=== PATIENT | female | born 1935 | race Caucasian/White ===

== ENCOUNTER 2018-01-09 07:31 | Outpatient (CLI) | payer MEDICARE, OTHER ==
--- NOTE | 2018-01-09 10:32 | PRG ---
DATE OF SERVICE: 01/09/2018 HISTORY: Ms. Berenice Laboy is a very pleasant 82-year-old who presents [facility] for ev aluation of an ulceration of the right medial buttock. The patient was previously seen in the [facility]ound Center for 2 pressure ulcerations on 06/06/2016 and 06/20/2016. At the time of the patient's visit o n 06/20/2016, the ulcerations had almost healed completely with dressing changes of Multidex powder. The patient states that the ulceration over the right medial buttock has recurred. She states that she has been performing dressing changes of Multidex powder for this wound on her own. PAST MEDICAL HISTORY: Psoriasis. PAST SURGICAL HISTORY: 1. Modified radical mastectomy. 2. Tonsillectomy and adenoidectomy. 3. Nasal surgery. MEDICATIONS: 1. Premarin. 2. Nexium. 3. Folate. 4. Humira. 5. Metoprolol. 6. Losartan/HCTZ. 7. Eliquis. 8. Furosemide. 9. Simvastatin. 10. Folic acid. PHYSICAL EXAMINATION: An ulceration of the right medial buttock is present. Granulation tissue is p resent within the wound margins. Nonviable tissue present within the wound margins was debrided with an excisional full-thickness debridement with the use of a curette. No purulent drainage is associa jony with the wound. No erythema of the skin surrounding the wound is present. No maceration of the skin of the periwound is noted. Post-debridement measurements are approximately 0.5 x 0.9 cm. ASSESSMENT AND PLAN: 1. Pressure ulceration of right medial buttock as described above. Dressing changes of Medihoney an d bordered gauze will be initiated today. These dressing changes are to be performed on a daily basi s after cleansing and irrigation. No antibiotics will be prescribed today based upon the appearance of the wound. I will see Ms. Laboy again in two weeks. 2. Psoriasis.
== END 2018-01-09 07:32 | disposition home or self-care (01) ==
LOC: WCC 07:31
PROVIDERS: ATTEND Family Medicine
DX: L89.319 Pressure ulcer of right buttock, unspecified stage (principal); L40.9 Psoriasis, unspecified; Z90.10 Acquired absence of unspecified breast and nipple
CPT/HCPCS: 11042; 97139; G0463; 99203

== ENCOUNTER 2018-01-29 09:38 | Outpatient (CLI) | payer MEDICARE, OTHER ==
--- NOTE | 2018-01-29 10:43 | PRG ---
DATE OF SERVICE: 01/29/2018 HISTORY: Ms. Berenice Laboy is a very pleasant 82-year-old who presents to the [facility] for ev aluation of an ulceration of the right medial buttock. The patient was previously seen in the [facility]ound Center for 2 pressure ulcerations on 06/06/2016 and 06/20/2016. At the time of the patient's visit o n 06/20/2016, the ulcerations had almost healed completely with dressing changes of Multidex powder. At the time of the patient's visit on 01/09/2018, the patient stated that the ulceration over the [facility] medial buttock had recurred. She stated that she had been performing dressing changes of Multide x powder for this wound on her own. After the patient's visit on 01/09/2018, dressing changes of Med ihoney and bordered gauze were initiated. The patient states she has been performing these dressing changes on a daily basis after cleansing and irrigation on her own. PHYSICAL EXAMINATION: VITAL SIGNS: Temperature 97.5, pulse 89, respirations 21, blood pressure 135/67. BACK: Ulceration of the right medial buttock has healed completely. ASSESSMENT AND PLAN: 1. Pressure ulceration of right medial buttock. As stated above, this wound has healed completely. Dressing changes will be discontinued and Ms. Laboy will be discharged from clinic today with campbell melendez on a p.r.n. basis. 2. Psoriasis.
== END 2018-01-29 09:39 | disposition home or self-care (01) ==
LOC: WCC 09:38
PROVIDERS: ATTEND Family Medicine
DX: L89.319 Pressure ulcer of right buttock, unspecified stage (principal); L40.9 Psoriasis, unspecified
CPT/HCPCS: 97139; G0463; 99213

== ENCOUNTER 2018-03-24 19:58 | Inpatient (IN) | payer MEDICARE, OTHER ==
--- NOTE | 2018-03-24 23:29 | PDOC.FPRHP ---
- History of Present Illness Chief Complaint: Amaya Xfer, Afib History of Present Illness: Pt Orientedx0 at time of exam, history obtained from ER and PCP physicians; previous medical records. Ms. Laboy was seen in her halfway today for weakness and diarrhea that she reported to have been present since . An EKG was obtained at that time which revealed Afib with intermittent RVR. She was sent to [facility] for further evaluation, where Afib was not seen but rather concern for heart block, Xray obtained suspicious for PNA and pleural effusion, UA suspicious for UTI. She was then transferred to [facility] ED for treatment of sepsis and evaluation of possible heart block. She reports pain during her examination but is unable to say where it is coming from, no other intelligible responses to questioning. ED Course: CBC, CMP, CXR, CT, Trop/ckmb, ddimer - Allergies/Adverse Reactions Allergies Allergy/AdvReac Type Severity Reaction Status Date / Time No Known Drug Allergies Allergy Verified 01/08/17 03:25 - Home Medications Medication Instructions Recorded Confirmed Type Albuterol Sulfate [Proair HFA] 2 puff INH Q4HR 01/08/17 01/08/17 History Cholecalciferol (Vitamin D3) 5,000 units PO Q7DAYS 01/08/17 01/08/17 History [Vitamin D] Clotrimazole 1% Cream [Lotrimin 1% 1 applic TOP QPM 01/08/17 01/08/17 History Cream] Estrogens, Conjugated [Premarin 1 applic VAG Q7DAYS 01/08/17 01/08/17 History Cream] Folic Acid [Folvite] 1 mg PO QPM 01/08/17 01/08/17 History Losartan/Hydrochlorothiazide 1 mg PO QAM 01/08/17 01/08/17 History [Losartan-Hctz 100-25 mg Tab] Methotrexate Sodium 2.5 mg PO Q7D 01/08/17 01/08/17 History Simvastatin [Zocor] 20 mg PO QPM 01/08/17 01/08/17 History Albuterol Sulfate 1.25 mg NEB L7AM-RY PRN #60 neb 01/18/17 Rx Apixaban [Eliquis] 5 mg PO BID #60 tab 01/18/17 Rx Bisacodyl [Dulcolax] 10 mg MN DAILYPRN PRN #0 supp 01/18/17 Rx Docusate [Colace] 100 mg PO BID cap 01/18/17 Rx Flecainide [Tambocor] 50 mg PO Q12HR #60 tab 01/18/17 Rx Ipratropium/Albuterol Sulfate 3 ml NEB P4BA-NS #60 neb 01/18/17 Rx [DuoNeb] Metoprolol Succinate [Toprol XL] 100 mg PO DAILY #30 tab 01/18/17 Rx Pantoprazole [Protonix] 40 mg PO Q24HR tab 01/18/17 Rx Polyethylene Glycol 3350 [Miralax] 17 gm PO DAILY pk 01/18/17 Rx guaiFENesin ER [Mucinex] 600 mg PO Q12HR tab 01/18/17 Rx - History PMHx:Afib, GERD, HLD, HTN, Psoriasis PSHx: L mastectomy FHx: none Social: lives alone in halfway - Review of Systems ROS unobtainable: due to mental status (unintelligible responses to most questioning, Oriented x0) - Vital signs BP: [131/98] HR: [107] RR: [21] Tmax: [97.6] Pox: [99]% on [2L] Wt: [63kg] - Physical Exam Constitutional: well developed, other (moaning in pain throughout exam) HEENT: normocephalic and atraumatic, conjunctiva clear, MMM Neck: supple, trachea midline Chest: no lesions Heart: normal S1/S2, no murmurs/rubs/gallops, pulses present, no edema, other ( tachycardic) Lungs: CTAB, other (difficulty to auscultate 2/2 moaning) Abdomen: soft, no masses/distention Musculoskeletal: normal structure, ROM grossly normal Neurological: no focal deficit Skin: no rash/lesions, good turgor Heme/Lymphatic: no unusual bruising or bleeding, no petechia FMR H&P: A/P - Plan 1. Sepsis - UTI or PNA as possible source - Vanc, azithromycin, and ceftriaxone to cover for CAP and urosepsis - UCx with sensitivities - sputum culture - IV NS 100ml/hr 2. Tachycardia - possibly 2/2 sepsis, afib with RVR, or volume depletion - EKG concerning for heart block - consider cardiology consult in AM 3. UTI - IV Abx providing coverage - IV fluid resuscitation - monitor urine output 4. PNA with loculated pleural effusion - chronic vs sepsis source - appreciate pulm recommendations regarding pleural effusion 5. Afib - chronic, continue home meds - appreciate cardiology recs 6. HTN - hold home medications 7. Psoriasis - continue home medications 8. GERD - continue home medications 9. HLD - continue home medications Disposition/LOS: treatment of sepsis with empiric abx, await cultures and sensitivities to narrow treatments, monitor on telemetry FMR H&P: Upper Level - Pertinent history 83F seen today as a transfer for a fib. Issues started today when she was seen by PCP. PCP note indicated patient was capable of making her own decision. She was having diarrhea, for which culture was drawn, She was noted to be tachycardic and EKG was done, finding her to be in afib. Afib was noted to be a chronic issue. She was then sent to [facility] for further evaluation. There, she was also noted to have a possible loculated effusion, can not rule out pneumonia, on CTA, and possible UTI based on UA. She was then transfered to [facility] for further care. She was noted on exam to be incoherent, pulling at surrounding objects and not responding appropriately. - Pertinent findings Gen: Awake, disoriented, unable to follow command or verbally respond appropriately. Pulling on clothes and beddings. CV: Tachycardic, no obvious m/g/r Resp: CTA Derm: No obvious rash or lesion Abd: Normoactive, soft Ext: No pitting edema. - Plan Date/Time: 03/24/18 8821 I, [Kelvin Ly], have evaluated this patient and agree with findings/plan as outlined by manufacturing engineering intern resident. Pertinent changes/additions are listed here. 1. Sepsis - Based on alter mentation, in addition to tachycardia, tachypnea - Plan, treat with broad spectrum abx. Culture pending - Consider repeat imaging on effusion seen on ct. Consider consultation with pulm. 2. Afib, rate controlled - When evaluating in ER, rate under 110, rate controlled, Afib on EKG - Etiology can include possible sepsis, which is being treated or dehydration for which patient is being resuscitated. If patient goes into RVR, consider card consult and starting on amio or dilt. 3. UTI - UA suggest infection. - Culture pending - Broad abx coverage 4. PNA with loculated pleural effusion - Will treat with ceftriaxone, azithromycin. Vancomycin in addition due to loculation with increase concern for staph. Consider pulm consult in morning. May require drainage. Consider repeat imaging in morning - At this time, patient has good O2 saturation on RA 5. HTN - Hold home medications in light of sepsis. BP is appropriate 7. Psoriasis - Continue home medication 8. GERD - Continue home medications 9. HLD - Continue home medications 10. Elevated troponin - Trending down, likely demand from sepsis.
[2018-03-25 00:58] LABS: Troponin I 0.029 ng/mL (< 0.028)
[2018-03-25] MEDS ORDERED: Ondansetron HCl/PF 4 MG/2 ML Vial IVP PRN (01:42)
[2018-03-25] MEDS ORDERED: Acetaminophen 325 MG TAB PO PRN (01:42)
[2018-03-25] MEDS ORDERED: Ondansetron ODT 4 MG TAB SL PRN (01:42)
[2018-03-25] MEDS ORDERED: Piperacillin/Tazobactam 3.375 GM in Sodium Chloride 0.9% 100 ML IVPB SCH (02:00)
[2018-03-25] MEDS: Sodium Chloride 0.9% 1,000 ML IV SCH ×3 (02:19→23:17)
[2018-03-25] MEDS: cefTRIAXone\\ROCEPHIN 2 GM in Sodium Chloride 0.9% 100 ML IVPB SCH (02:42)
[2018-03-25 03:06] LABS: #Lymphocytes 1.2 thou/uL (1.20-3.40); #Monocytes 0.5 thou/uL (0.11-0.59); #Neutrophils 6.6 thou/uL (1.40-6.50); %Basophils 0.3 % (0.0-1.0); %Eosinophils 0.6 % (0.0-10.0); %Lymphocytes 14.2 % (21.0-51.0); %Monocytes 5.8 % (0.0-10.0); %Neutrophils 79.1 % (42.0-75.0); Hemoglobin 13.4 g/dL (12.0-16.0); Mean Corpuscular HGB CONC 30.5 g/dL (32.0-36.0); Mean Corpuscular Hemoglobin 33.6 pg (27.0-31.0); Mean Platelet Volume 9.5 fL (7.4-10.4); Platelet Count 95 thou/uL (130-400); RBC Distribution Width 14.8 % (11.5-14.5); White Blood Cell (WBC) Count 8.3 thou/uL (4.8-10.8)
[2018-03-25 03:13] LABS: Troponin I 0.018 ng/mL (< 0.028)
[2018-03-25 03:23] LABS: ALT (SGPT) 70 U/L (8-55); AST (SGOT) 51 U/L (5-34); Albumin 3.6 g/dL (3.4-4.8); Alkaline Phosphatase 68 U/L (40-150); Anion Gap 16 mmol/L (10-20); BUN (Urea Nitrogen) 38 mg/dL (9.8-20.1); Bilirubin, Total 0.6 mg/dL (0.2-1.2); Calc. Creatinine Clearance 53 mL/min (70-130); Calcium 8.4 mg/dL (7.8-10.44); Carbon Dioxide 28 mmol/L (23-31); Chloride 103 mmol/L (98-107); Estimated GFR-MDRD 64; Glucose 102 mg/dL (83-110); Potassium 3.9 mmol/L (3.5-5.1); Protein, Total 5.6 g/dL (6.0-8.3); Sodium 143 mmol/L (136-145)
[2018-03-25] MEDS: Azithromycin 500 MG in Sodium Chloride 0.9% 250 ML 250 ML IVPB SCH (04:32)
--- NOTE | 2018-03-25 06:37 | PDOC.FM ---
- Subjective Subjective: Unable to obtain hx from pt due to AMS. She denies pain. A&Ox0. Reports being in jainism, year 1935. Per nursing pt is not aggitated or trying to get up out of bed. She waxes and wanes on if she will respond to questions and open her eyes. She follows some simple commands. - Objective MAR Reviewed: Yes Vital Signs & Weight: Vital Signs (12 hours) Temp Pulse Resp BP Pulse Ox 03/25/18 04:00 97.5 F L 133 H 16 98/70 95 03/25/18 01:14 98.2 F 138 H 20 92/69 96 Weight Weight 65.771 kg Result Diagrams: 03/25/18 02:37 03/25/18 02:37 <Unique Schwartz - Last Filed: 03/25/18 10:08> - Objective Vital Signs & Weight: Vital Signs (12 hours) Temp Pulse Resp BP Pulse Ox 03/25/18 15:40 97.7 F 131 H 20 135/104 H 96 03/25/18 11:57 97.4 F L 135 H 20 112/76 96 03/25/18 08:27 97.6 F 133 H 14 106/68 96 03/25/18 08:24 96 Weight Weight 65.771 kg Result Diagrams: 03/25/18 02:37 03/25/18 02:37 <Ivonne García - Last Filed: 03/25/18 17:11> Dx/Plan (1) Atrial fibrillation with RVR Code(s): I48.91 - UNSPECIFIED ATRIAL FIBRILLATION Status: Acute (2) GERD (gastroesophageal reflux disease) Code(s): K21.9 - GASTRO-ESOPHAGEAL REFLUX DISEASE WITHOUT ESOPHAGITIS Status: Acute (3) Hyperglycemia Code(s): R73.9 - HYPERGLYCEMIA, UNSPECIFIED Status: Acute (4) Peripheral edema Code(s): R60.9 - EDEMA, UNSPECIFIED Status: Acute (5) Urinary tract infection Status: Acute (6) Community acquired pneumonia Code(s): J18.9 - PNEUMONIA, UNSPECIFIED ORGANISM Status: Chronic (7) HTN (hypertension) Code(s): I10 - ESSENTIAL (PRIMARY) HYPERTENSION Status: Chronic (8) Hyperlipidemia Code(s): E78.5 - HYPERLIPIDEMIA, UNSPECIFIED Status: Chronic (9) Psoriasis Code(s): L40.9 - PSORIASIS, UNSPECIFIED Status: Chronic - Plan Plan: Sepsis - Afebrile, tachycardic, tachypnea, AMS - UTI or PNA as possible source - Continue Vanc, azithromycin, and ceftriaxone to cover for CAP and urosepsis - UCx with sensitivities pending - Sputum culture - NS @ 100ml/hr - Consider Pulm consult for effusion seen on CT - Consider repeating imaging Encephalopathy of unknown cause - 2/2 sepsis vs brain bleed vs electrolyte cause - A&Ox0, not her baseline - Obtain CT brain to r/o bleed, pt anticoagulated with Eliquis Arrhythmia - Ddx includes: heart block, Afib with RVR, aflutter, volume depletion - Cardiology consulted - Appears to have been present for at least 3 months, appears to have worsened since August 2017. Chronic Afib - Continue Eliquis, flecanide - Holding metoprolol for hypotension - Will consult Cardiology, follows with [facility] out[facility] UTI - UA suggests infection - Culture pending - IV Abx providing coverage - IV fluid resuscitation - Monitor urine output PNA with loculated complex pleural effusion in right hemithorax - 96% on 2L NC - Continue ceftriaxone, azithromycin. Vancomycin in addition due to loculation with increase concern for staph. - Pulm consult, May require drainage. - Consider repeat imaging HTN - Hold home losartan-HCTZ, metoprolol due to sepsis, maintaining BP wnl Psoriasis - Continue home methotrexate GERD - Continue home Protonix HLD - Continue home Simvastatin Constipation - Continue colace Elevated Troponin, down trending - Likely demand 2/2 sepsis - 0.029-> 0.018 Code Status: FULL DVT ppx: Eliquis <Unique Schwartz - Last Filed: 03/25/18 10:08> Attending Addendum - Attending Addendum Date/Time: 03/25/18 1108 I personally evaluated the patient and discussed the management with Dr. Schwartz. I agree with the History, Examination, Assessment and Plan documented above with any addition or exceptions noted below. The patient's heart rhythm changes from a.fib with rvr to atrial flutter. Rate is also fluctuating from 100-130's. Her bp is 90's systolic. Will start amiodarone as she isn't able to tolerate beta ricky or calcium channel ricky at this time. Pulmonology is being consulted for loculated pleural effusion. Getting CT head for her altered mental status which is significantly changed from when I saw her in the office yesterday. Continue antibiotics for UTI. Cultures pending. <Ivonne García - Last Filed: 03/25/18 17:11>
[2018-03-25] MEDS ORDERED: Albuterol Sulfate 1.25 MG/3 ML NEB NEB PRN (06:41)
[2018-03-25] MEDS ORDERED: Bisacodyl 10 MG SUPP PR PRN (08:51)
[2018-03-25] MEDS ORDERED: Flecainide 50 MG TAB PO SCH (09:00)
[2018-03-25] MEDS ORDERED: Methotrexate Sodium 2.5 MG TAB PO SCH (09:00)
[2018-03-25] MEDS ORDERED: Non-Formulary Item 1 EACH (Cholecalciferol (Vitamin D3) [Vitamin D] 5,000 UNITS) PO SCH (09:00)
--- NOTE | 2018-03-25 11:54 | CT ---
CT BRAIN WITHOUT CONTRAST: History: Change in mental status, altered mental status, fall. FINDINGS: There are changes of chronic small vessel ischemic disease in the periventricular white matter. The v entricular sizes are appropriate and the basal cisterns patent. No evidence of acute infarct, hemorrh age, midline shift, or abnormal extraaxial fluid collections are seen. The bony calvarium is intact. There is mucosal disease in the paranasal sinuses. IMPRESSION: No CT evidence of acute intracranial process. POS: [facility]
[2018-03-25] MEDS: PROVENTIL INHALER 6.7 G (200 INHALATIONS) INH SCH ×4 (12:10→22:05)
[2018-03-25] MEDS ORDERED: Amiodarone In Dextrose 200 ML IVPB SCH (12:30)
[2018-03-25] MEDS ORDERED: Amiodarone HCl 150 MG in Dextrose 5% in Water 100 ML IVPB SCH (12:30)
[2018-03-25] MEDS ORDERED: Amiodarone HCl 150 MG, Admixture Fee 1 EACH in Dextrose 5% in Water 100 ML IVPB SCH (12:45)
[2018-03-25] MEDS: guaiFENesin ER 600 MG TAB PO SCH ×2 (13:41→20:26)
[2018-03-25] MEDS: Docusate 100 MG CAP PO SCH ×2 (13:41→20:25)
[2018-03-25] MEDS: Benzonatate 100 MG CAP PO SCH ×2 (13:41→20:24)
[2018-03-25] MEDS: Apixaban 5 MG TAB PO SCH ×2 (13:41→20:24)
[2018-03-25] MEDS: Furosemide 20 MG TAB PO SCH (13:41)
[2018-03-25] MEDS: Polyethylene Glycol 3350 17 GM Packet PO SCH (13:42)
--- NOTE | 2018-03-25 13:58 | CON ---
DATE OF CONSULTATION: 03/25/2018 HISTORY OF PRESENT ILLNESS: Berenice Laboy is an 83-year-old female. She was confused this morning w hen I saw her. She thought she was in episcopalian. She could not really tell me historically anything th at had been going on. Apparently, she resides in [place]. She was seen for weakness and karla larson, was found to have atrial fib, was sent to the emergency room in [place]. She, subsequently, w as sent here where a CT angiogram was done showing a loculated right effusion. I was consulted for t . PAST MEDICAL HISTORY: Remarkable for reflux disease, hypertension, psoriasis, and a left mastectomy. SOCIAL HISTORY: She is a nonsmoker and nondrinker. She lives [place]. The [place] is unclear. MEDICATIONS: Prior to admission, she was on vitamin D, folate, losartan, hydrochlorothiazide, simvas tatin, methotrexate, apixaban, Tambocor, ipratropium, albuterol nebulizer, metoprolol, Protonix. FAMILY HISTORY: Negative for lung disease reportedly at an early age. REVIEW OF SYSTEMS: Not obtainable. PHYSICAL EXAMINATION: GENERAL: She is afebrile, heart rate is 130, respiratory rate is 20, oximetry is 96, blood pressure 112/76. She is on 2-liter cannula. She is oriented to episcopalian. NECK: Supple, no lymphadenopathy. LUNGS: Remarkable for absent breath sounds posteriorly on the right. Left lung is clear. HEART: Irregularly irregular with a rapid rate. There is a grade 1-2/6 systolic murmur. ABDOMEN: Soft. She has no guarding and no masses. EXTREMITIES: Without clubbing, cyanosis, or edema. LABORATORY DATA: White count 8.3, hemoglobin 13.4, platelets 95,000. Electrolytes are normal except for a BUN of 38, AST 51, ALT 70. Bilirubin was normal. Alkaline phos phatase was normal. IMPRESSION: Probable [id number] loculated right effusion. I doubt her pleural space is infected. Since this is an incidental finding and we do not have any recent films in the last 4-6 weeks, it is difficult to know how old this is. I did find a film from November that showed haziness in the right mid dle and right lower lobe. One could make an argument that, since this is several months old and since she has advanced age with confusion, no aggressive care should be undertaken. I will plan to discuss with Cardiothoracic Surg blayne.
--- NOTE | 2018-03-25 14:57 | CON ---
DATE OF CONSULTATION: 03/25/2018 HISTORY OF PRESENT ILLNESS: The patient is a pleasant 83-year-old woman who has a history of atrial fibrillation and presented with increasing weakness and dyspnea. The patient was seen initially 2 years ago with atrial fibrillation. She underwent transesophageal echocardiogram and underwent electrical cardioversion. The patient had been maintained on flecainide. The patient went back into atrial fibrillation and has been maintained on chronic anticoagulation therapy. The patient was admitted with weakness and dyspnea. PAST MEDICAL HISTORY: 1. Atrial fibrillation. 2. Hypertension. 3. GE reflux. 4. Psoriasis. PAST SURGICAL HISTORY: Mastectomy. SOCIAL HISTORY: Nonsmoker. FAMILY HISTORY: No strong family history of coronary artery disease. MEDICATIONS ON ADMISSION: Eliquis 5 b.i.d., Zocor 20 daily, metoprolol 100 b.i.d., methotrexate 2.5 daily, losartan/hydrochlorothiazide 100/25 daily. ALLERGIES: No known drug allergies. REVIEW OF SYSTEMS: The patient denies any fevers or chills. PHYSICAL EXAMINATION: GENERAL: Elderly woman in no acute distress. VITAL SIGNS: Blood pressure was 112/76, heart rate 130. NECK: No jugular venous distention. LUNGS: Coarse breath sounds bilateral. HEART: Irregular rate and rhythm, normal S1, S2. ABDOMEN: Nondistended. EXTREMITIES: Showed trace edema. Vascular radial pulses 2+. LABORATORY DATA AND IMAGING: White blood cell count 8.3, hemoglobin 13.4, hematocrit 44.1, platelets are 95. Sodium is 143, potassium 3.9, chloride 103, bicarbonate 28, BUN 38, creatinine is 0.85. Troponin was 0.018. Her EKG revealed atrial fibrillation with a right bundle branch block and left anterior fascicular block. IMPRESSION: 1. Atrial fibrillation with rapid ventricular response. 2. Hypertension. 3. Pleural effusion. 4. Possible pneumonia. This patient presents with rapid atrial fibrillation. From a cardiac standpoint , she has been placed on amiodarone. The patient needs to continue on her anticoagulation. If the patient remains in rapid atrial fibrillation, we will plan on electrical cardioversion. We will follow this patient with you through her hospitalization. [facility]
--- NOTE | 2018-03-25 15:40 | EKG ---
Test Reason : Blood Pressure : / mmHG Vent. Rate : 138 BPM Atrial Rate : 138 BPM P-R Int : 092 ms QRS Dur : 108 ms QT Int : 328 ms P-R-T Axes : 000 -64 113 degrees QTc Int : 496 ms Sinus tachycardia with short NH with occasional Premature ventricular complexes Incomplete right bundle branch block Left anterior fascicular block Abnormal ECG When compared with ECG of 24-MAR-2018 20:26, (Unconfirmed) Sinus rhythm has replaced Atrial fibrillation Confirmed by MANDI TELLEZ, SValencia ([id number]) on 03/25/2018 3:40:50 PM Referred By: SELAM *r Confirmed By:DR. Nataly RAYMOND MD
[2018-03-25] MEDS ORDERED: Vancomycin HCl 1 GM in Premix Bag 1 BAG IVPB SCH (17:00)
[2018-03-25] MEDS: Amiodarone HCl 450 MG, Admixture Fee 1 EACH in Dextrose 5% in Water 250 ML IVPB SCH (20:42)
[2018-03-25] MEDS ORDERED: Folic Acid 1 MG TAB PO SCH (21:00)
[2018-03-25] MEDS ORDERED: Clotrimazole 1 % Cream 30 GM TUBE TOP SCH (21:00)
[2018-03-25] MEDS ORDERED: Atorvastatin Calcium 10 MG TAB PO SCH (21:00)
[2018-03-26] MEDS: cefTRIAXone\\ROCEPHIN 2 GM in Sodium Chloride 0.9% 100 ML IVPB SCH (03:16)
[2018-03-26] MEDS: Azithromycin 500 MG in Sodium Chloride 0.9% 250 ML 250 ML IVPB SCH (04:11)
[2018-03-26] MEDS: PROVENTIL INHALER 6.7 G (200 INHALATIONS) INH SCH ×6 (04:47→22:08)
--- NOTE | 2018-03-26 05:17 | PDOC.FM ---
- Subjective Subjective: Overnight on tele HR in 120's on Amio gtt. Pt not in room this AM, sent down to [facility] for cardioversion. - Objective MAR Reviewed: Yes Vital Signs & Weight: Vital Signs (12 hours) Temp Pulse Resp BP Pulse Ox 03/26/18 04:00 98.5 F 126 H 20 111/84 96 03/26/18 02:23 96 03/26/18 02:20 127 H 20 03/26/18 00:00 97.7 F 126 H 26 H 100/76 95 03/25/18 22:06 125 H 20 03/25/18 20:00 97.7 F 126 H 20 98 03/25/18 19:38 98 03/25/18 18:33 124 H 16 94 L Weight Weight 65.771 kg Result Diagrams: 03/25/18 02:37 03/25/18 02:37 <Unique Schwartz - Last Filed: 03/26/18 09:38> - Objective Vital Signs & Weight: Vital Signs (12 hours) Temp Pulse Pulse Pulse Pulse Pulse Pulse 03/26/18 16:00 03/26/18 15:00 98.1 F 03/26/18 14:55 87 03/26/18 13:01 97 03/26/18 12:45 97.5 F L 03/26/18 12:00 105 H 92 87 93 97 03/26/18 09:31 98.4 F 90 03/26/18 07:10 Resp Resp Resp Resp Resp BP BP 03/26/18 16:00 03/26/18 15:00 03/26/18 14:55 100/54 L 03/26/18 13:01 03/26/18 12:45 03/26/18 12:00 36 H 29 H 28 H 14 136/87 03/26/18 09:31 22 H 03/26/18 07:10 BP BP BP BP BP Pulse Ox Pulse Ox 03/26/18 16:00 96 03/26/18 15:00 03/26/18 14:55 03/26/18 13:01 03/26/18 12:45 03/26/18 12:00 131/65 125/48 L 92/53 L 98/51 L 93 L 03/26/18 09:31 113/47 L 90 L 03/26/18 07:10 98 Pulse Ox Pulse Ox 03/26/18 16:00 03/26/18 15:00 03/26/18 14:55 03/26/18 13:01 03/26/18 12:45 03/26/18 12:00 92 L 100 03/26/18 09:31 03/26/18 07:10 Weight Weight 65.771 kg Most Recent Monitor Data Heart Rate from ECG 87 NIBP 106/62 NIBP BP-Mean 76 Respiration from ECG 11 SpO2 95 I&O: 03/25/18 03/26/18 03/27/18 06:59 06:59 06:59 Intake Total 360 468 Output Total 1450 Balance 360 -982 Result Diagrams: 03/25/18 02:37 03/25/18 02:37 <Ivonne García - Last Filed: 03/26/18 17:15> Dx/Plan (1) Atrial fibrillation with RVR Code(s): I48.91 - UNSPECIFIED ATRIAL FIBRILLATION Status: Acute (2) GERD (gastroesophageal reflux disease) Code(s): K21.9 - GASTRO-ESOPHAGEAL REFLUX DISEASE WITHOUT ESOPHAGITIS Status: Acute (3) Hyperglycemia Code(s): R73.9 - HYPERGLYCEMIA, UNSPECIFIED Status: Acute (4) Peripheral edema Code(s): R60.9 - EDEMA, UNSPECIFIED Status: Acute (5) Urinary tract infection Status: Acute (6) Community acquired pneumonia Code(s): J18.9 - PNEUMONIA, UNSPECIFIED ORGANISM Status: Chronic (7) HTN (hypertension) Code(s): I10 - ESSENTIAL (PRIMARY) HYPERTENSION Status: Chronic (8) Hyperlipidemia Code(s): E78.5 - HYPERLIPIDEMIA, UNSPECIFIED Status: Chronic (9) Psoriasis Code(s): L40.9 - PSORIASIS, UNSPECIFIED Status: Chronic - Plan Plan: Sepsis - Initially tachycardic, tachypnea, AMS - UTI or PNA as possible source - Continue Vanc, azithromycin, and ceftriaxone to cover for CAP and urosepsis - UCx with presumptive E coli, sensitivities pending - Sputum culture - NS @ 100ml/hr - Pulm consulted, apprec recs Encephalopathy, improving - Likely 2/2 UTI - Brain CT unremarkable - A&Ox3 today A-fib with RVR - Continue Eliquis, flecanide - Holding metoprolol for hypotension - Placed on Amiodarone gtt yesterday afternoon, with initiation bolus HR in 100s but returned to 130 shortly after - Cardiology consulted, follows with Brock ballard, apprec recs - NPO for cardioversion this AM UTI - UA suggests infection - Culture with presumptive E coli - IV Abx providing coverage - IV fluid resuscitation PNA with loculated complex pleural effusion in right hemithorax - 97% on 2L NC, not on O2 at home. Consulting CM in case pt requires O2 at home when discharged - Continue ceftriaxone, azithromycin. Vancomycin in addition due to loculation with increase concern for staph. - Pulm consulted, apprec recs - Appears to have been present for at least 3 months, appears to have worsened since August 2017. HTN - Hold home losartan-HCTZ, metoprolol due to sepsis, maintaining BP wnl Psoriasis - Continue home methotrexate GERD - Continue home Protonix HLD - Continue home Simvastatin Constipation - Continue colace Elevated Troponin, down trending - Likely demand 2/2 sepsis - 0.029-> 0.018 Code Status: FULL DVT ppx: Eliquis <Unique Schwartz - Last Filed: 03/26/18 09:38> Attending Addendum - Attending Addendum Date/Time: 03/26/18 1034 I personally evaluated the patient and discussed the management with Dr. Schwartz. I agree with the History, Examination, Assessment and Plan documented above with any addition or exceptions noted below. Pt is still sleepy following cardioversion this morning. She is moaning while breathing though she states it doesn't hurt. There are soft expiratory wheezes noted on exam. Pt is able to tell us her name. Will get neb treatment. CT scan results reviewed. <Ivonne García - Last Filed: 03/26/18 17:15>
[2018-03-26] MEDS ORDERED: Albuterol Sulfate 1.25 MG/3 ML NEB ONE (07:43)
[2018-03-26] MEDS ORDERED: Benzocaine 20% Spray 60 ML CAN ONE (07:48)
[2018-03-26] MEDS ORDERED: Ketamine 50 MG/ML VIAL ONE (07:49)
--- NOTE | 2018-03-26 08:57 | ECHO ---
TRANSESOPHAGEAL ECHOCARDIOGRAM: DATE OF PROCEDURE: 03/26/18 INDICATION: 83-year-old woman with atypical flutter. DESCRIPTION OF PROCEDURE: The patient was taken to the PACU. The patient was sedated by anesthesiology. A transesophageal probe was placed in the distal esophagus and stomach. Echocardiographic images were obtained. The transesophageal probe was removed. FINDINGS: 1. Normal left ventricular systolic function. 2. Left atrial enlargement. 3. Mild mitral regurgitation. 4. Mild tricuspid regurgitation. 5. No thrombus noted in left atrium or left atrial appendage. 6. Atherosclerotic debris in the descending aorta. 7. Pleural effusion is noted. IMPRESSION: No formed thrombus in left atrium or left atrial appendage.
[2018-03-26] MEDS: Sodium Chloride 0.9% 1,000 ML IV SCH ×2 (10:01→16:45)
[2018-03-26] MEDS: Furosemide 20 MG TAB PO SCH (10:02)
[2018-03-26] MEDS: guaiFENesin ER 600 MG TAB PO SCH (10:04)
[2018-03-26] MEDS: Apixaban 5 MG TAB PO SCH (10:05)
[2018-03-26] MEDS: Benzonatate 100 MG CAP PO SCH (11:49)
[2018-03-26] MEDS: Docusate 100 MG CAP PO SCH (11:50)
[2018-03-26] MEDS: Polyethylene Glycol 3350 17 GM Packet PO SCH (11:50)
[2018-03-26] MEDS ORDERED: Midazolam HCl 2 mg/2 ml Vial ONE (12:17)
[2018-03-26] MEDS ORDERED: Lorazepam 2 MG/ML VIAL ONE (12:35)
--- NOTE | 2018-03-26 12:50 | RAD ---
AP VIEW CHEST: HISTORY: Respiratory distress. FINDINGS: AP view chest was obtained on 03/26/18. Comparison was made to previous exam from 03/24/18. AP view chest demonstrates interval expansion of the right-sided pleural effusion which now completel y fills the right hemithorax. Pulmonary vascular congestion is seen. Severe left shoulder degenerative changes seen. IMPRESSION: Increasing right-sided pleural effusion. The right hemithorax is completely opacified. POS: [facility]
[2018-03-26] MEDS ORDERED: Ventilator Sedation Protocol 1 EACH FS SCH (13:08)
[2018-03-26] MEDS ORDERED: CCU Electrolyte Replacement 1 EACH IVPB ONE (13:08)
--- NOTE | 2018-03-26 13:13 | PDOC.EVN ---
Event Note - Event Note Event Note: YENNIFER AVELAR NOTE At approximately 9:15AM today the patient returned to her room following a successful cardioversion for Sinus Tachycardia. Residents were paged around 12: 15 for respiratory distress for the patient. Residents went to evaluate the patient at that time. A stat CXR was ordered for the patient. CXR showed complete opacification of the Right lung. Of note, patient has chronic pleural effusion of right side that occupies approximately 1/2-2/3 of the Right lung field. Patient was tachypneic and essentially unresponsive. Patient would not follow commands and would not respond to verbal stimuli. Yennifer Avelar was then called on the patient. Patient was immediately transferred to ICU. At that time the patient was bag valve masked to increase oxygen prior to intubation. Intubation was then successfully completed by Dr. Unique Schwartz with Dr. Burch, Pulmonology, attending. Patient was intubated with 7.5 ET and was secured at 21cm at the teeth. CXR following intubation shows appropriate placement of ET in trachea. Patient was placed on sedation protocol and IV lasix was ordered. Patient will also have ABG drawn in approximately 1 hour following intubation per Pulmonology guidelines.
[2018-03-26] MEDS ORDERED: Propofol BOLUS 1,000 MG/100 ML VIAL IV PRN (13:15)
[2018-03-26] MEDS ORDERED: Lorazepam 2 MG/ML VIAL SLOW IVP PRN (13:15)
[2018-03-26] MEDS ORDERED: DISCONTINUE PREVIOUS NARCOTIC PAIN MEDICATIONS AND BENZODIAZEPINES FS SCH (13:15)
[2018-03-26] MEDS ORDERED: fentaNYL Citrate/PF 2,000 MCG in Sodium Chloride 0.9% 60 ML IV SCH (13:15)
[2018-03-26] MEDS ORDERED: Fentanyl BOLUS 250 ML IVPB PRN (13:15)
[2018-03-26] MEDS ORDERED: Potassium Phosphate 9 MMOL in Sodium Chloride 0.9% 100 ML IVPB PRN (13:16)
[2018-03-26] MEDS ORDERED: Potassium Chloride 20 MEQ TAB PO PRN (13:16)
[2018-03-26] MEDS ORDERED: Potassium Phosphate 15 MMOL in Sodium Chloride 0.9% 250 ML 250 ML IV PRN (13:16)
[2018-03-26] MEDS ORDERED: Magnesium Oxide 400 MG TAB PO PRN ×2 (13:16)
[2018-03-26] MEDS ORDERED: Magnesium 2 GM/NS 0.9% 100 ML 2 GM in Premix Bag 1 BAG IVPB PRN (13:16)
[2018-03-26] MEDS ORDERED: Potassium Chloride 40 MEQ in Premix Bag 1 BAG IVPB PRN (13:16)
[2018-03-26] MEDS ORDERED: CCU ELECTROLYTE REPLACEMENT PROTOCOL FS PRN (13:16)
[2018-03-26] MEDS ORDERED: Potassium Phosphate 12 MMOL in Sodium Chloride 0.9% 250 ML 250 ML IV PRN (13:16)
[2018-03-26 13:21] LABS: Actual Bicarbonate (HCO3a) 25.3 mEq/L (22-28); Base Excess (BEa) -1.2 mEq/L (-2.0 to +3.0); CO2 Tension 50.1 mmHg (35.0-45.0); Calcium, Ionized 1.07 mmol/L (1.12-1.30); Carboxyhemoglobin (COHb) 0.9 gm% (0.0-3.0); Hemoglobin (Hb) 12.4 g/dL (12.0-16.0); Potassium - ABG Lab 3.83 mmol/L (3.70-5.30); pH, Arterial 7.32 (7.35-7.45)
[2018-03-26 13:23] LABS: ALV-art Gradient 76.405 (0-20); Puncture Site RRA
--- NOTE | 2018-03-26 13:29 | RAD ---
AP VIEW CHEST: HISTORY: Intubation. Respiratory distress. FINDINGS: AP view chest is obtained on 03/26/18. Comparison is made to a previous chest radiograph from earlier on 03/26/18. AP view chest demonstrates interval intubation of the patient. The endotracheal tube is in good posi tion. The right-sided opacity is slightly decreased. There is some aerated lung now seen; however, a large right-sided pleural effusion remains. A small left-sided pleural effusion is also present. Pulmonary vascular congestion is seen. IMPRESSION: Interval intubation of the patient. There appears to have been a right-sided thoracentesis. POS: [facility]
[2018-03-26] MEDS ORDERED: Furosemide 40 MG/4 ML VIAL SLOW IVP SCH (13:30)
[2018-03-26] MEDS ORDERED: Furosemide 100 MG/10 ML VIAL SLOW IVP SCH (13:45)
--- NOTE | 2018-03-26 13:49 | PDOC.EVN ---
Event Note - Event Note Event Note: INDICATION: Respiratory Distress PROCEDURE SAND BOBBER: Unique Schwartz MD ATTENDING PHYSICIAN: Dr Burch, Pulmonology. In Attendance CONSENT: Consent was not obtained prior to the procedure due to emergent nature. PROCEDURE SUMMARY: A time out was performed. My hands were washed immediately prior to the procedure. I wore gloves throughout the procedure. The patient was placed on a clinical research monitor including continuous pulse oximetry. The patient received 2mg of Versed for induction. Using a GlideScope and a size 7.5 endotracheal tube with stylet, the patient was intubated on the 1st attempt with a grade 1 view. The stylet was removed and cuff balloon was inflated. Appropriate endotracheal tube position was confirmed by direct visualization of vocal cord passage, fogging of the tube, and symmetric breath sounds. The tube was secured at 21 cm at the teeth. Post intubation chest x-ray showed adequate placement of ET tube. Patient was placed on ventilator for respiratory support. <Unique Schwartz - Last Filed: 03/26/18 13:52> Attending Addendum - Attending Addendum Date/Time: 03/27/18 7810 I was personally present for the entirety of the procedure. <Anthony Burch - Last Filed: 03/27/18 13:44>
--- NOTE | 2018-03-26 13:51 | PRG ---
DATE OF SERVICE: 03/26/2018 Ms. Laboy was scheduled for a cardioversion this morning. Anesthesia contacted me, said they were c oncerned about her respiratory status. They plan to treat her with ketamine and minimum of sedation to facilitate the transesophageal echo. She was cardioverted. I arrived in the room as she has been transferred back from PACU to evaluate her. She was tachypneic. I asked the nurse to get respirato ry therapy to bring her a nebulizer treatment. She had faint wheezes at that time. I did not hear a nything until I walked into the ICU to do some followup rounds on some other patients, and I found he r intubated in bed 10 on the C-side of the unit. Apparently, a Code Michael was called and she had just been intubated by my associate. PHYSICAL EXAMINATION: VITAL SIGNS: Heart rate is 105, blood pressure 136/87, respiratory rates in the low 20s. LUNGS: Remarkable for mild rhonchi bilaterally. HEART: Regular rhythm. ABDOMEN: Abdomen is soft. She had an opaque hemithorax on the film done at 11:48 on the right and then after intubation, she kiser d aeration of half of her right lung which would suggest that mucus plugging and a weak cough was the cause. At this point in time we will continue with supportive care. She is too weak to tolerate a thoracosc opy/thoracotomy in my opinion. I would not be surprised if she had a recurrence of her atrial fibril lation. I will continue to follow her. Blood gas post-intubation shows a pH 7.32, CO2 50, pO2 82. Critical care time was 30 minutes.
[2018-03-26] MEDS: Amiodarone HCl 450 MG, Admixture Fee 1 EACH in Dextrose 5% in Water 250 ML IVPB SCH (14:31)
--- NOTE | 2018-03-26 16:43 | EKG ---
Test Reason : POST VANESSA/CARDIOVERSI Blood Pressure : / mmHG Vent. Rate : 084 BPM Atrial Rate : 084 BPM P-R Int : 164 ms QRS Dur : 108 ms QT Int : 408 ms P-R-T Axes : 078 -62 070 degrees QTc Int : 482 ms Normal sinus rhythm Left axis deviation Low voltage QRS Incomplete right bundle branch block T wave abnormality, consider anterior ischemia Prolonged QT Abnormal ECG When compared with ECG of 25-MAR-2018 10:39, Premature ventricular complexes are no longer Present Vent. rate has decreased BY [address] no longer depressed in Anterior leads Confirmed by MANDI TELLEZ, DR. Ingram ([id number]) on 03/26/2018 4:43:09 PM Referred By: ODALIS Confirmed By:DR. Nataly RAYMOND MD
[2018-03-26] MEDS: Pantoprazole 40 MG VIAL IVP SCH (20:51)
[2018-03-27] MEDS: PROVENTIL INHALER 6.7 G (200 INHALATIONS) INH SCH ×6 (02:17→23:28)
[2018-03-27] MEDS: Azithromycin 500 MG in Sodium Chloride 0.9% 250 ML 250 ML IVPB SCH (03:45)
[2018-03-27] MEDS: cefTRIAXone\\ROCEPHIN 2 GM in Sodium Chloride 0.9% 100 ML IVPB SCH (03:45)
[2018-03-27 04:54] LABS: ALT (SGPT) 50 U/L (8-55); AST (SGOT) 30 U/L (5-34); Albumin 2.8 g/dL (3.4-4.8); Alkaline Phosphatase 57 U/L (40-150); Anion Gap 11 mmol/L (10-20); BUN (Urea Nitrogen) 27 mg/dL (9.8-20.1); Bilirubin, Total 0.7 mg/dL (0.2-1.2); Calc. Creatinine Clearance 56 mL/min (70-130); Calcium 8.3 mg/dL (7.8-10.44); Carbon Dioxide 34 mmol/L (23-31); Chloride 100 mmol/L (98-107); Estimated GFR-MDRD 69; Globulin 1.7 g/dL (2.4-3.5); Glucose 105 mg/dL (83-110); Protein, Total 4.5 g/dL (6.0-8.3); Sodium 142 mmol/L (136-145)
[2018-03-27 05:01] LABS: Potassium 2.8 mmol/L (3.5-5.1)
[2018-03-27 05:30] LABS: Anisocytosis SLIGHT = 6-15 cells (100X) (0-5/hpf); Band 11 % (5-11); Hemoglobin 11.4 g/dL (12.0-16.0); Lymphocytes 5 % (21-51); MDiff Complete? YES; Mean Corpuscular HGB CONC 31.8 g/dL (32.0-36.0); Mean Corpuscular Hemoglobin 33.7 pg (27.0-31.0); Mean Platelet Volume 9.9 fL (7.4-10.4); Monocytes 15 % (0-10); Neutrophil 69 % (42-75); PLT Morphology Comment Appears Decreased; Platelet Count 70 thou/uL (130-400); Red Blood Cell (RBC) Count 3.39 mill/uL (4.20-5.40); White Blood Cell (WBC) Count 8.8 thou/uL (4.8-10.8)
[2018-03-27] MEDS: Potassium Chloride 40 MEQ in Sodium Chloride 0.9% 250 ML 250 ML IVPB PRN (05:50)
[2018-03-27] MEDS: Amiodarone HCl 450 MG, Admixture Fee 1 EACH in Dextrose 5% in Water 250 ML IVPB SCH ×2 (05:50→21:11)
--- NOTE | 2018-03-27 06:15 | PDOC.FM ---
- Subjective Subjective: 83 yo female seen at bedside this morning. Patient is intubated and sedated. Patient will open eyes to verbal stimuli and will follow commands. Patient will not answer questions with nodding/shaking of head. Per nursing staff, patient has been low dose sedation since intubation without problem. Patient has been flipping in and out of A-fib all night long. No other complaints this morning. - Objective Vital Signs & Weight: Vital Signs (12 hours) Temp Pulse Resp BP Pulse Ox 03/27/18 06:00 11 L 03/27/18 04:00 98.4 F 11 L 03/27/18 02:15 93 125/65 03/27/18 02:00 11 L 03/27/18 00:00 98.9 F 11 L 03/26/18 22:09 97 03/26/18 22:00 11 L 03/26/18 20:00 99.0 F 11 L 94 L 03/26/18 18:44 85 87/67 L Weight Weight 65.771 kg Most Recent Monitor Data Heart Rate from ECG 85 NIBP 93/53 NIBP BP-Mean 66 Respiration from ECG 23 SpO2 98 I&O: 03/25/18 03/26/18 03/27/18 06:59 06:59 06:59 Intake Total 360 1586 Output Total 6622 Balance 360 -5028 Result Diagrams: 03/27/18 04:05 03/27/18 04:05 <Jesus Deshpande - Last Filed: 03/27/18 10:39> - Objective Vital Signs & Weight: Vital Signs (12 hours) Temp Pulse Resp BP Pulse Ox 03/27/18 12:51 99 121/60 03/27/18 12:00 97.5 F L 8 L 03/27/18 11:27 97 125/76 03/27/18 10:00 8 L 03/27/18 09:14 68 102/68 03/27/18 08:00 97.8 F 11 L 03/27/18 06:00 66 11 L 93/53 L 98 03/27/18 04:00 98.4 F 11 L 03/27/18 02:15 93 125/65 03/27/18 02:00 11 L Weight Admit Weight 65.771 kg Weight 65.771 kg Most Recent Monitor Data Heart Rate from ECG 108 NIBP 147/63 NIBP BP-Mean 91 Respiration from ECG 16 SpO2 97 I&O: 03/26/18 03/27/18 03/28/18 06:59 06:59 06:59 Intake Total 360 1586 280 Output Total 3165 65 Balance 360 -1579 215 Result Diagrams: 03/27/18 04:05 03/27/18 12:48 <ShalomYash hitchcock Randi - Last Filed: 03/27/18 13:25> Phys Exam - Physical Examination HEENT: moist MMs ET in place Rhonchi bilaterally with diminished lung sounds at right base Cardiovascular: no significant murmur irregularly irregular Gastrointestinal: soft, non-tender, no distention, positive bowel sounds Musculoskeletal: no edema, pulses present Intubated and sedated Deviation from normal: Intubated and sedated <Jesus Deshpande - Last Filed: 03/27/18 10:39> Dx/Plan (1) Acute respiratory failure with hypoxia Code(s): J96.01 - ACUTE RESPIRATORY FAILURE WITH HYPOXIA Status: Acute (2) Recurrent pleural effusion on right Code(s): J90 - PLEURAL EFFUSION, NOT ELSEWHERE CLASSIFIED Status: Acute (3) Encephalopathy Code(s): G93.40 - ENCEPHALOPATHY, UNSPECIFIED Status: Acute (4) Atrial fibrillation with RVR Code(s): I48.91 - UNSPECIFIED ATRIAL FIBRILLATION Status: Resolved (5) Community acquired pneumonia Code(s): J18.9 - PNEUMONIA, UNSPECIFIED ORGANISM Status: Chronic (6) Thrombocytopenia Code(s): D69.6 - THROMBOCYTOPENIA, UNSPECIFIED Status: Acute (7) Hyperlipidemia Code(s): E78.5 - HYPERLIPIDEMIA, UNSPECIFIED Status: Chronic (8) Psoriasis Code(s): L40.9 - PSORIASIS, UNSPECIFIED Status: Chronic - Plan Plan: 1. Acute hypoxic respiratory failure - On mechanical ventilation - Dr. Fine on the case, appreciated his recommendations - Palliative Care consultation to determine MPOA - Likely secondary to fluid overload and sedation from cardioversion - Consider additional Lasix this morning - All oral medications held at this time 2. Recurrent pleural effusion on right with associated suspected pneumonia - Patient is not good surgical candidate - No sampling of fluid to determine etiology at this time - Continue IV lasix and respiratory support - Continue antibiotics 3. A-fib with RVR - Patient is s/p cardioversion with return to NSR - Off/On A-fib overnight - Currently on Amiodarone drip with good ventricular rate control 4. Encephalopathy, improving - Secondary to respiratory failure and sedation 5. Thrombocytopenia - Unknown etiology - New this hospitalization - Caution with anticoagulants 6. UTI - UA suggests infection - Culture with presumptive E coli - IV Abx providing coverage 7. HTN - Hold home losartan-HCTZ, metoprolol due to sepsis, maintaining BP wnl 8. Psoriasis - Held home methotrexate 9. GERD - IV Protonix 10. HLD - Held home Simvastatin Disposition: Guarded, will gather more information and make management decisions as appropriate. <Jesus Deshpande - Last Filed: 03/27/18 10:39> Attending Addendum - Attending Addendum Date/Time: 03/27/18 1325 I personally evaluated the patient and discussed the management with Dr. Deshpande. I agree with the History, Examination, Assessment and Plan documented above with any addition or exceptions noted below. <Yash Rausch - Last Filed: 03/27/18 13:25>
[2018-03-27] MEDS: Pantoprazole 40 MG VIAL IVP SCH ×2 (08:29→20:20)
[2018-03-27] MEDS ORDERED: Methotrexate Sodium 2.5 MG TAB PO SCH (09:00)
[2018-03-27] MEDS ORDERED: Enoxaparin Sodium 40 MG/0.4 ML SYRINGE SC SCH (09:00)
[2018-03-27] MEDS ORDERED: Furosemide 40 MG/4 ML VIAL SLOW IVP SCH (09:00)
--- NOTE | 2018-03-27 10:58 | PRG ---
DATE OF SERVICE: 03/27/2018 PHYSICAL EXAMINATION: VITAL SIGNS: Ms. Laboy is afebrile. She is sedated. Heart rates in the 60s, she is on 25 mcg fent anyl, blood pressure 102/68. LUNGS: Remarkable for equal breath sounds, slightly decreased on the right. HEART: Regular rhythm. ABDOMEN: Soft. LABORATORY DATA: White count 8.8, hemoglobin 11.4, platelets 70,000. Sodium 142, potassium 3.8, chl oride 100, bicarbonate 34, BUN 27, creatinine 0.8. There is no blood gas today. No chest x-ray today. IMPRESSION: 1. Respiratory failure associated with mucus plugging and deconditioning. 2. Chronic right-sided pleural effusion. 3. Atrial fibrillation, status post cardioversion with intermittent atrial fibrillation recurring pe r my discussion with the nurses. The fact that she had severe respiratory distress was just associated with a right mainstem mucus pl ug is a bad sign. Her power of healthcare, which her [id number] is supposedly traveling here toda y. We will continue with current care. Critical care time was 30 minutes.
[2018-03-27 13:11] LABS: Potassium 3.4 mmol/L (3.5-5.1)
[2018-03-27] MEDS: Propofol 1,000 MG/100 ML VIAL IV PRN (17:30)
[2018-03-27] MEDS: Sodium Chloride 0.9% 1,000 ML IV SCH (20:20)
[2018-03-28] MEDS: cefTRIAXone\\ROCEPHIN 2 GM in Sodium Chloride 0.9% 100 ML IVPB SCH (02:15)
[2018-03-28] MEDS: PROVENTIL INHALER 6.7 G (200 INHALATIONS) INH SCH ×6 (02:41→23:21)
[2018-03-28] MEDS: Azithromycin 500 MG in Sodium Chloride 0.9% 250 ML 250 ML IVPB SCH (03:13)
[2018-03-28 05:58] LABS: Band 7 % (5-11); Lymphocytes 10 % (21-51); MDiff Complete? YES; Mean Corpuscular HGB CONC 31.4 g/dL (32.0-36.0); Mean Corpuscular Hemoglobin 32.6 pg (27.0-31.0); Mean Platelet Volume 10.1 fL (7.4-10.4); Monocytes 7 % (0-10); Neutrophil 76 % (42-75); PLT Morphology Comment Appears Decreased; Platelet Count 65 thou/uL (130-400); RBC Distribution Width 15.4 % (11.5-14.5); Red Blood Cell (RBC) Count 3.98 mill/uL (4.20-5.40)
[2018-03-28 06:04] LABS: ALT (SGPT) 42 U/L (8-55); AST (SGOT) 35 U/L (5-34); Albumin 2.8 g/dL (3.4-4.8); Alkaline Phosphatase 61 U/L (40-150); Anion Gap 14 mmol/L (10-20); BUN (Urea Nitrogen) 24 mg/dL (9.8-20.1); Bilirubin, Total 0.5 mg/dL (0.2-1.2); Calc. Creatinine Clearance 61 mL/min (70-130); Calcium 7.9 mg/dL (7.8-10.44); Carbon Dioxide 28 mmol/L (23-31); Chloride 103 mmol/L (98-107); Estimated GFR-MDRD 79; Globulin 2.1 g/dL (2.4-3.5); Glucose 77 mg/dL (83-110); Potassium 4.1 mmol/L (3.5-5.1); Protein, Total 4.9 g/dL (6.0-8.3); Sodium 141 mmol/L (136-145)
--- NOTE | 2018-03-28 06:15 | PDOC.FM ---
- Subjective Subjective: 83 yo female seen at bedside this AM. Patient is intubated and sedated. Nurses state patient has been waking up more over night. She is currently sedated on 5 of Propofol in preparation of extubation attempt this morning. No other history is able to be obtained this AM. - Objective Vital Signs & Weight: Vital Signs (12 hours) Temp Pulse Resp BP Pulse Ox 03/28/18 06:00 8 L 03/28/18 04:00 11 L 03/28/18 03:00 98.3 F 03/28/18 02:41 101 H 03/28/18 02:00 8 L 03/28/18 00:00 8 L 03/27/18 23:29 79 142/67 H 03/27/18 23:00 98.2 F 03/27/18 22:00 10 L 03/27/18 20:00 8 L 03/27/18 19:32 100 03/27/18 19:22 86 139/46 L 03/27/18 19:00 98.2 F Weight Admit Weight 65.771 kg Weight 62.9 kg Most Recent Monitor Data Heart Rate from ECG 84 NIBP 120/63 NIBP BP-Mean 82 Respiration from ECG 20 SpO2 100 I&O: 03/26/18 03/27/18 03/28/18 06:59 06:59 06:59 Intake Total 360 1597.7 2258.1 Output Total 3165 675 Balance 360 -1567.3 1583.1 Result Diagrams: 03/28/18 05:08 03/28/18 05:08 <Jesus Deshpande - Last Filed: 03/28/18 08:48> - Objective Vital Signs & Weight: Vital Signs (12 hours) Temp Pulse Resp BP Pulse Ox 03/28/18 07:48 79 11 L 95 03/28/18 07:39 96 103/65 97 03/28/18 06:00 8 L 03/28/18 04:00 11 L 03/28/18 03:00 98.3 F 03/28/18 02:41 101 H 03/28/18 02:00 8 L 03/28/18 00:00 8 L 03/27/18 23:29 79 142/67 H 03/27/18 23:00 98.2 F 03/27/18 22:00 10 L Weight Admit Weight 65.771 kg Weight 62.9 kg Most Recent Monitor Data Heart Rate from ECG 84 NIBP 120/63 NIBP BP-Mean 82 Respiration from ECG 20 SpO2 100 I&O: 03/27/18 03/28/18 03/29/18 06:59 06:59 06:59 Intake Total 1597.7 2258.1 Output Total 3165 1075 Balance -1567.3 1183.1 Result Diagrams: 03/28/18 05:08 03/28/18 05:08 <Yash Rausch - Last Filed: 03/28/18 09:49> Phys Exam - Physical Examination ET in place Bilateral crackles Cardiovascular: no significant murmur irregularly irregular rhythm. Controlled rate Gastrointestinal: soft, non-tender, no distention, positive bowel sounds Musculoskeletal: no edema, pulses present Intubated and sedated Deviation from normal: Intubated and Sedated Skin: cap refill <2 seconds <Jesus Deshpande - Last Filed: 03/28/18 08:48> Dx/Plan (1) Acute respiratory failure with hypoxia Code(s): J96.01 - ACUTE RESPIRATORY FAILURE WITH HYPOXIA Status: Acute (2) Recurrent pleural effusion on right Code(s): J90 - PLEURAL EFFUSION, NOT ELSEWHERE CLASSIFIED Status: Acute (3) Encephalopathy Code(s): G93.40 - ENCEPHALOPATHY, UNSPECIFIED Status: Acute (4) Atrial fibrillation with RVR Code(s): I48.91 - UNSPECIFIED ATRIAL FIBRILLATION Status: Resolved (5) Community acquired pneumonia Code(s): J18.9 - PNEUMONIA, UNSPECIFIED ORGANISM Status: Chronic (6) Thrombocytopenia Code(s): D69.6 - THROMBOCYTOPENIA, UNSPECIFIED Status: Acute (7) Hyperlipidemia Code(s): E78.5 - HYPERLIPIDEMIA, UNSPECIFIED Status: Chronic (8) Psoriasis Code(s): L40.9 - PSORIASIS, UNSPECIFIED Status: Chronic - Plan Plan: 1. Acute hypoxic respiratory failure - On mechanical ventilation - Dr. Fine on the case, appreciated his recommendations - Palliative Care consultation. Medical Power of Digital Content Manager available to make decisions. Sister in Law Sindi - Likely secondary to fluid overload and sedation from cardioversion - Will give Lasix this AM - All oral medications held at this time - Repeat CXR this AM looks improved. - Per Dr. Fine, will attempt to wean off ventilator today. 2. Recurrent pleural effusion on right with associated suspected pneumonia - Patient is not good surgical candidate - No sampling of fluid to determine etiology at this time - Continue IV lasix and respiratory support - Continue antibiotics 3. A-fib with RVR - Patient is s/p cardioversion with return to NSR - Off/On A-fib overnight - Currently on Amiodarone drip with good ventricular rate control - Dr. Gutiérrez consulted, appreciate his recommendations - Continue Amiodarone drip until patient is extubated, eating, and more stable. 4. Encephalopathy - Secondary to respiratory failure and sedation 5. Thrombocytopenia - Unknown etiology - New this hospitalization - Platelets at 65 - Held Lovenox this AM 6. UTI - UA suggests infection - Culture with presumptive E coli - IV Abx providing coverage 7. HTN - Hold home losartan-HCTZ, metoprolol due to sepsis, maintaining BP wnl 8. Psoriasis - Held home methotrexate 9. GERD - IV Protonix 10. HLD - Held home Simvastatin Disposition: Guarded, will gather more information and make management decisions as appropriate. <Jesus Deshpande - Last Filed: 03/28/18 08:48> Attending Addendum - Attending Addendum Date/Time: 03/28/18 0949 I personally evaluated the patient and discussed the management with Dr. Deshpande. I agree with the History, Examination, Assessment and Plan documented above with any addition or exceptions noted below. <Yash Rausch - Last Filed: 03/28/18 09:49>
[2018-03-28] MEDS ORDERED: Furosemide 40 MG/4 ML VIAL SLOW IVP SCH (06:30)
[2018-03-28] MEDS: Dextrose 5 % And 0.9 % NaCl 1,000 ML IV SCH (06:35)
[2018-03-28 08:27] LABS: Actual Bicarbonate (HCO3a) 35.9 mEq/L (22-28); Base Excess (BEa) 10.5 mEq/L (-2.0 to +3.0); CO2 Tension 50.9 mmHg (35.0-45.0); Calcium, Ionized 1.13 mmol/L (1.12-1.30); Carboxyhemoglobin (COHb) 1.5 gm% (0.0-3.0); Hemoglobin (Hb) 13.1 g/dL (12.0-16.0); O2 Tension (PaO2) 75.4 mmHg (> 60.0); Potassium - ABG Lab 2.81 mmol/L (3.70-5.30); pH, Arterial 7.47 (7.35-7.45)
--- NOTE | 2018-03-28 08:27 | RAD ---
PORTABLE CHEST: HISTORY: Respiratory distress. COMPARISON: 03/26/18 study. FINDINGS: Endotracheal and NG tubes are in satisfactory position. Large right pleural effusion is again noted. A smaller left effusion is seen. Parenchymal lung changes appear essentially stable. IMPRESSION: Stable exam. POS: [facility]
[2018-03-28 08:36] LABS: ALV-art Gradient 60.615 (0-20); Puncture Site RBA
[2018-03-28] MEDS: Pantoprazole 40 MG VIAL IVP SCH ×2 (09:00→20:52)
[2018-03-28] MEDS: Amiodarone HCl 450 MG, Admixture Fee 1 EACH in Dextrose 5% in Water 250 ML IVPB SCH (15:29)
[2018-03-28] MEDS ORDERED: Amiodarone HCl 150 MG, Admixture Fee 1 EACH in Dextrose 5% in Water 100 ML IVPB SCH (19:15)
[2018-03-28] MEDS: Propofol 1,000 MG/100 ML VIAL IV PRN (19:21)
--- NOTE | 2018-03-28 19:24 | PRG ---
DATE OF SERVICE: 03/28/2018 SUBJECTIVE: Narda's [id number], who is a of her brother, who has power of healthcare, was at the bedside today. We had a conversation lasted almost 45 minutes about her functional state prio r to this. She has actually been quite functional, managing all of her personal and financial affair s, although her best friend she sees frequently has been noticing that she is sleeping a lot. She apparently recently brought a new TV and her friend was joking that she really did not need a new TV because every time she went over the house she was sleeping. She has become progressively less active, but has been extremely active volunteering and working thro ughout her life. I explained to her that her zqbblp-zn-zbx that what kept her over the edge was simply a mucus plug gi mao that she really was not strong enough to handle just coughing up a mucus plug which is a bad prog nostic sign. I was told that she would never want to be kept mechanically ventilated and actually, I was able to get her to wake up and nod that she understood what we were talking about and agreed wit h everything her yexjpi-fx-hob was saying. Oorhve-uv-xfs did agree to make her a do not resuscitate status, although I have reassured the qfxpxl-yl-tqg that we will do our best to get her free of mecha nical ventilation. I would like to do a thoracentesis or at least attempt one to see if I could mobfrancisco hermane some pleural fluid though based on her CAT scan, I suspect she has been living with this right p leural effusion for many months that she may have "trapped lung" behind the effusion as well as some loculated areas. OBJECTIVE: LUNGS: Clear. HEART: Regular rhythm. ABDOMEN: Soft. LABORATORY DATA: White count is 10, hemoglobin is 13, platelets 65,000. Sodium 141, potassium 4.1, chloride 103, bicarbonate 20, BUN 24, creatinine 0.7. A H 7.47, CO2 50, pO2 of 75. Chest radiograph still shows a right effusion. IMPRESSION: Respiratory failure associated with mucus plugging after cardioversion. When I evaluated her today in the room, she was back in atrial fibrillation with a rate of about 114. I believe she has been going in and out of atrial fibrillation. Her prognosis is guarded. We will try to consider weaning and extubation tomorrow with ongoing supportive care. I do not feel she wou ld tolerate thoracotomy or thoracoscopy. She certainly would not tolerate a decortication procedure. Even though, she has been quite functional until this admission, she is quite frail appearing and a s I explained to her sister, who is the same age as her, Ms. Laboy looks 10 years older than she is. Her plhdue-nu-utt is actually in excellent condition and had a good understanding of all these issues that we were discussing. Hopefully, we can consider weaning and extubation in the next 24-48 hours. Critical care time was 30 minutes.
[2018-03-29] MEDS: Dextrose 5 % And 0.9 % NaCl 1,000 ML IV SCH ×2 (02:15→19:02)
[2018-03-29] MEDS: cefTRIAXone\\ROCEPHIN 2 GM in Sodium Chloride 0.9% 100 ML IVPB SCH (02:27)
[2018-03-29] MEDS: PROVENTIL INHALER 6.7 G (200 INHALATIONS) INH SCH ×6 (03:27→23:31)
[2018-03-29] MEDS: Amiodarone HCl 450 MG, Admixture Fee 1 EACH in Dextrose 5% in Water 250 ML IVPB SCH ×2 (04:00→20:00)
[2018-03-29 05:35] LABS: ALT (SGPT) 30 U/L (8-55); AST (SGOT) 25 U/L (5-34); Albumin 2.7 g/dL (3.4-4.8); Alkaline Phosphatase 57 U/L (40-150); BUN (Urea Nitrogen) 16 mg/dL (9.8-20.1); Bilirubin, Total 0.7 mg/dL (0.2-1.2); Calc. Creatinine Clearance 70 mL/min (70-130); Estimated GFR-MDRD 83; Globulin 1.9 g/dL (2.4-3.5); Glucose 103 mg/dL (83-110); Protein, Total 4.6 g/dL (6.0-8.3)
[2018-03-29 05:44] LABS: Anion Gap 11 mmol/L (10-20); Carbon Dioxide 38 mmol/L (23-31); Chloride 98 mmol/L (98-107); Sodium 145 mmol/L (136-145)
[2018-03-29 05:49] LABS: Potassium 2.4 mmol/L (3.5-5.1)
[2018-03-29 06:20] LABS: Band 6 % (5-11); Eosinophils 2 % (0-10); Hemoglobin 11.7 g/dL (12.0-16.0); Lymphocytes 17 % (21-51); MDiff Complete? YES; Macrocytosis SLIGHT = 6-15 cells (100X) (0-5/hpf); Mean Corpuscular Hemoglobin 33.3 pg (27.0-31.0); Mean Platelet Volume 9.5 fL (7.4-10.4); Monocytes 9 % (0-10); Neutrophil 64 % (42-75); PLT Morphology Comment Appears Decreased; Platelet Count 86 thou/uL (130-400); Reactive Lymphocytes 2 % (0-10); Red Blood Cell (RBC) Count 3.51 mill/uL (4.20-5.40); White Blood Cell (WBC) Count 6.7 thou/uL (4.8-10.8)
--- NOTE | 2018-03-29 06:27 | PDOC.FM ---
- Subjective Subjective: 83 yo female seen at bedside this am. Patient is intubated and sedated. She will open her eyes to verbal stimuli and follow commands. Patient had no family at bedside this morning for interview. Per nursing staff, patient had sedation turned on overnight to see if she would settle down and not be as agitated on the vent. Her HR was up to 150 overnight and she had to be loaded with Amiodarone again. Otherwise no other acute events overnight. - Objective Vital Signs & Weight: Vital Signs (12 hours) Pulse Resp BP Pulse Ox 03/29/18 06:00 9 L 03/29/18 03:28 89 03/29/18 03:27 98 03/29/18 02:00 15 03/28/18 23:22 114 H 103/46 L 03/28/18 23:21 96 03/28/18 22:00 8 L 03/28/18 20:00 15 94 L Weight Admit Weight 65.771 kg Weight 69.4 kg Most Recent Monitor Data Heart Rate from ECG 113 NIBP 97/73 NIBP BP-Mean 81 Respiration from ECG 25 SpO2 97 I&O: 03/27/18 03/28/18 03/29/18 06:59 06:59 06:59 Intake Total 1597.7 2258.1 1851.4 Output Total 3165 1075 5075 Balance -1567.3 1183.1 -3223.6 Result Diagrams: 03/29/18 04:05 03/29/18 04:05 <eJsus Deshpande - Last Filed: 03/29/18 06:32> - Objective Vital Signs & Weight: Vital Signs (12 hours) Temp Pulse Resp BP Pulse Ox 03/29/18 15:11 91 03/29/18 15:06 98 26 H 98 03/29/18 13:20 88 03/29/18 12:15 89 29 H 94 L 03/29/18 12:00 98.1 F 22 H 03/29/18 11:33 128 H 142/76 H 03/29/18 11:29 126 H 22 H 97 03/29/18 10:00 11 L 03/29/18 08:29 112 H 99/41 L 99 03/29/18 08:27 118 H 8 L 99 03/29/18 08:00 98.3 F 10 L 99 03/29/18 06:00 9 L 09/29/18 03:28 89 03/29/18 03:27 98 Weight Admit Weight 65.771 kg Weight 69.4 kg Most Recent Monitor Data Heart Rate from ECG 60 NIBP 143/86 NIBP BP-Mean 105 Respiration from ECG 25 SpO2 97 I&O: 03/28/18 03/29/18 03/30/18 06:59 06:59 06:59 Intake Total 2258.1 1851.4 Output Total 1075 5075 160 Balance 1183.1 -3223.6 -160 Result Diagrams: 03/29/18 04:05 03/29/18 14:12 <Ivonne García - Last Filed: 03/29/18 15:23> Phys Exam - Physical Examination HEENT: moist MMs ET in place Bilateral crackles. Cardiovascular: no significant murmur irregularly irregular rhythm. Tachycardic rate Gastrointestinal: soft, non-tender, no distention, positive bowel sounds Edema to right hand Neurological: moves all 4 limbs Deviation from normal: Intubated and sedated Skin: no rash <Jesus Deshpande - Last Filed: 03/29/18 06:32> Dx/Plan (1) Acute respiratory failure with hypoxia Code(s): J96.01 - ACUTE RESPIRATORY FAILURE WITH HYPOXIA Status: Acute (2) Recurrent pleural effusion on right Code(s): J90 - PLEURAL EFFUSION, NOT ELSEWHERE CLASSIFIED Status: Acute (3) Encephalopathy Code(s): G93.40 - ENCEPHALOPATHY, UNSPECIFIED Status: Acute (4) Atrial fibrillation with RVR Code(s): I48.91 - UNSPECIFIED ATRIAL FIBRILLATION Status: Resolved (5) Community acquired pneumonia Code(s): J18.9 - PNEUMONIA, UNSPECIFIED ORGANISM Status: Chronic (6) Thrombocytopenia Code(s): D69.6 - THROMBOCYTOPENIA, UNSPECIFIED Status: Acute (7) Hypokalemia Code(s): E87.6 - HYPOKALEMIA Status: Acute (8) Hyperlipidemia Code(s): E78.5 - HYPERLIPIDEMIA, UNSPECIFIED Status: Chronic (9) Psoriasis Code(s): L40.9 - PSORIASIS, UNSPECIFIED Status: Chronic - Plan Plan: 1. Acute hypoxic respiratory failure - On mechanical ventilation, SIMV mode - Dr. Fine on the case, appreciated his recommendations - Palliative Care consultation. Medical Power of Concierge available to make decisions. Sister in Law Sindi - Likely secondary to fluid overload and sedation from cardioversion - Will consider lasix when potassium improves - All oral medications held at this time - Per Dr. Fine, will attempt thoracentesis today - Will attempt to wean off ventilator in next 24-48 hours as tolerated 2. Recurrent pleural effusion on right with associated suspected pneumonia - Patient is not good surgical candidate - No sampling of fluid to determine etiology at this time - Respiratory support - Continue antibiotics - Thoracentesis today 3. A-fib with RVR - Patient is s/p cardioversion with return to NSR - Off/On A-fib overnight - Currently on Amiodarone drip with good ventricular rate control - Dr. Gutiérrez consulted, appreciate his recommendations - Continue Amiodarone drip until patient is extubated, eating, and more stable. - Patient received sedation and 150 mg Amiodarone due to HR in 150 overnight - Will await further Cardiology recommendations 4. Encephalopathy - Secondary to respiratory failure and sedation 5. Thrombocytopenia - Unknown etiology - New this hospitalization - Platelets at 86 - Held Lovenox this AM 6. Hypokalemia - On protocol to replenish - 2.4 this AM - Likely secondary to lasix dose and large amount of urine output today 7. UTI - UA suggests infection - Culture with presumptive E coli - IV Abx providing coverage 8. HTN - Hold home losartan-HCTZ, metoprolol due to sepsis, maintaining BP wnl 9. Psoriasis - Held home methotrexate 10. GERD - IV Protonix 11. HLD - Held home Simvastatin Disposition: Guarded, will gather more information and make management decisions as appropriate. <Jesus Deshpande - Last Filed: 03/29/18 06:32> Attending Addendum - Attending Addendum Date/Time: 03/29/18 1522 I personally evaluated the patient and discussed the management with Dr. Deshpande. I agree with the History, Examination, Assessment and Plan documented above with any addition or exceptions noted below. The patient's heart rate went back into the 150's overnight. She was bolused with amiodarone. She also required diprivan. Pt is hypokalemic this morning and potassium is being replaced. <Ivonne García - Last Filed: 03/29/18 15:23>
[2018-03-29] MEDS: Potassium Chloride 40 MEQ in Sodium Chloride 0.9% 250 ML 250 ML IVPB PRN ×2 (07:55→15:06)
[2018-03-29] MEDS: Pantoprazole 40 MG VIAL IVP SCH ×2 (08:41→20:01)
[2018-03-29 08:45] LABS: Actual Bicarbonate (HCO3a) 40.9 mEq/L (22-28); Base Excess (BEa) 16.2 mEq/L (-2.0 to +3.0); CO2 Tension 49.4 mmHg (35.0-45.0); Calcium, Ionized 0.99 mmol/L (1.12-1.30); Carboxyhemoglobin (COHb) 1.4 gm% (0.0-3.0); Hemoglobin (Hb) 12.2 g/dL (12.0-16.0); O2 Tension (PaO2) 73.1 mmHg (> 60.0); Potassium - ABG Lab 2.37 mmol/L (3.70-5.30); pH, Arterial 7.54 (7.35-7.45)
[2018-03-29 08:51] LABS: Puncture Site RRA
--- NOTE | 2018-03-29 09:07 | RAD ---
PORTABLE CHEST ONE VIEW: Date: 03-29-18 Time: 6:49 a.m. History: Respiratory failure. FINDINGS: Comparison is made with the exam of the previous day. Endotracheal and nasogastric tube remain in tam ce. The large right pleural effusion and small left pleural effusion are again seen. No pneumothorace s identified. IMPRESSION: Stable exam. POS: [facility]
[2018-03-29] MEDS: Metoprolol Tartrate 5 MG/5 ML VIAL IVP SCH ×2 (11:38→18:33)
--- NOTE | 2018-03-29 11:49 | PDOC.CTH ---
Cardiology Progress Note - Subjective She remains intubated, currently awake on a sedation holiday. - Objective Vital Signs Temp Pulse Resp BP Pulse Ox 03/29/18 11:33 128 H 142/76 H 03/29/18 11:29 126 H 22 H 97 03/29/18 10:00 11 L 03/29/18 08:29 112 H 99/41 L 99 03/29/18 08:27 118 H 8 L 99 03/29/18 08:00 98.3 F 10 L 99 03/29/18 06:00 9 L 03/29/18 03:28 89 03/29/18 03:27 98 03/29/18 02:00 15 Admit Weight 145 lb Weight 153 lb 0.013 oz 03/28/18 03/29/18 03/30/18 06:59 06:59 06:59 Intake Total 2258.1 1851.4 Output Total 1075 5075 125 Balance 1183.1 -3223.6 -125 - Physical Examination General/Neuro: other: (Intubated) Neck: no JVD present Lungs: CTA, unlabored respirations Heart: RRR Abdomen: NT/ND Extremities: other: (no edema) - Telemetry Telemetry Rhythm: NSR - Labs Result Diagrams: 03/29/18 04:05 03/29/18 04:05 Troponin/CKMB Troponin I 0.018 ng/mL (< 0.028) 03/25/18 02:37 - Assessment/Plan 1. Afib RVR 2. Hypokalemia 3. Acute on chronic systolic heart failure. 4. Respiratory faiure thought to be due to mucus plufging after cardioversion. PLAN: - Continue amiodarone drip - Will start scheduled IV metoprolol as long as BP allows. - Currently holding Eliquis as she may need thoracenthesis verus surgical intervention for her complex pleural effusion. - K being replaced by protocol
--- NOTE | 2018-03-29 15:50 | EKG ---
Test Reason : TACHY Blood Pressure : / mmHG Vent. Rate : 106 BPM Atrial Rate : 267 BPM P-R Int : 000 ms QRS Dur : 116 ms QT Int : 384 ms P-R-T Axes : 000 -60 107 degrees QTc Int : 510 ms Atrial fibrillation with rapid ventricular response with a competing junctional pacemaker with premat ure ventricular or aberrantly conducted complexes Right bundle branch block Left anterior fascicular block Bifascicular block Abnormal ECG Confirmed by FABY SORIANO M.D. ([id number]), newspaper managing editor MATT MCCARTHY ([id number]) on 03/29/2018 3:49:55 PM Referred By: ERMD Confirmed By:FABY SORIANO M.D.
[2018-03-29] MEDS ORDERED: Furosemide 40 MG/4 ML VIAL SLOW IVP SCH (19:00)
[2018-03-30] MEDS: Metoprolol Tartrate 5 MG/5 ML VIAL IVP SCH ×4 (00:15→17:16)
--- NOTE | 2018-03-30 01:03 | PRG ---
DATE OF SERVICE: 03/29/2018 SUBJECTIVE: Berenice Laboy is alert and cooperative today. She is in no distress. Her minute volume was 6-7 liters a minute. She passed a leak test. OBJECTIVE: VITAL SIGNS: Heart rate was in the 80s. Her blood pressure has been stable at 131/92. LUNGS: Clear with decreased breath sounds in the right. HEART: Regular rhythm. ABDOMEN: Soft. She is in and out of atrial fibrillation. LABORATORY DATA: White count 6.7, hemoglobin 11.7, platelets 86,000. Sodium 145, potassium 2.4, chloride 98, bicarbonate 38, BUN 16, creatinine 0.68. IMPRESSION: 1. Respiratory failure secondary to deconditioning and mucus plugging. 2. Intermittent atrial fibrillation, which has probably been going on for quite some time. I think she has a pretty strong contraindication to anticoagulation permanently at this time. I recommended extubation. This was done successfully. We are placing her on BiPAP for today and tonight and then in the morning, we will remove BiPAP. I do not feel a thoracentesis is likely to add anything given my repeat review of her CT. I suspect everything is stuck to the lateral wall. I do not think that sitting her up and doing a thoracentesis will reveal any fluid, although I think the risk of a pneumothorax is small. I doubt she has an infected pleural space. We will continue with supportive care. Critical care time, 30 minutes. MTDD
[2018-03-30 01:27] LABS: Potassium 3.4 mmol/L (3.5-5.1)
[2018-03-30] MEDS: cefTRIAXone\\ROCEPHIN 2 GM in Sodium Chloride 0.9% 100 ML IVPB SCH (02:08)
[2018-03-30] MEDS: Potassium Chloride 40 MEQ in Sodium Chloride 0.9% 250 ML 250 ML IVPB PRN (02:35)
[2018-03-30] MEDS: PROVENTIL INHALER 6.7 G (200 INHALATIONS) INH SCH ×6 (03:03→23:08)
--- NOTE | 2018-03-30 06:14 | PDOC.FM ---
- Subjective Subjective: 83 yo female seen at bedside this AM. Patient is alert and oriented this am. She is currently on BIPAP. She states that she does not have any pain. She denies any fevers, chills, n/v/d. She states that her PCP, Dr. García, came to see her this AM. Patient is generally unaware of her critical state. No family was available for interview at this time. No other complaints at this time. - Objective Vital Signs & Weight: Vital Signs (12 hours) Temp Pulse Pulse Ox 03/30/18 03:05 79 03/30/18 03:03 98 03/30/18 00:00 97.8 F 03/29/18 23:33 83 03/29/18 23:31 97 03/29/18 20:00 97.8 F 97 03/29/18 19:53 83 03/29/18 19:52 97 Weight Admit Weight 65.771 kg Weight 69.4 kg Most Recent Monitor Data Heart Rate from ECG 78 NIBP 129/71 NIBP BP-Mean 90 Respiration from ECG 22 SpO2 97 I&O: 03/28/18 03/29/18 03/30/18 06:59 06:59 06:59 Intake Total 2258.1 1851.4 880.6 Output Total 1075 5017 1645 Balance 1183.1 -3223.6 -764.4 Result Diagrams: 03/29/18 04:05 03/30/18 00:53 <Jesus Deshpande - Last Filed: 03/30/18 07:52> - Objective Vital Signs & Weight: Vital Signs (12 hours) Temp Pulse Resp Pulse Ox 03/30/18 15:00 95 27 H 100 03/30/18 11:00 98.1 F 03/30/18 08:41 102 H 94 L 03/30/18 08:40 98 35 H 94 L 03/30/18 07:41 96 03/30/18 07:00 97.9 F 03/30/18 04:00 97.8 F Weight Admit Weight 65.771 kg Weight 68.1 kg Most Recent Monitor Data Heart Rate from ECG 99 NIBP 129/85 NIBP BP-Mean 99 Respiration from ECG 23 SpO2 100 I&O: 03/29/18 03/30/18 03/31/18 06:59 06:59 06:59 Intake Total 1851.4 1720.6 100 Output Total 5075 1945 195 Balance -3223.6 -224.4 -95 Result Diagrams: 03/29/18 04:05 03/30/18 00:53 <Ivonne García - Last Filed: 03/30/18 15:54> Phys Exam - Physical Examination Constitutional: NAD BIPAP in place Neck: no nodes Diminished lung sounds on RIGHT Cardiovascular: RRR, no significant murmur Gastrointestinal: soft, non-tender, no distention, positive bowel sounds Musculoskeletal: no edema, pulses present Neurological: non-focal, normal sensation, moves all 4 limbs Psychiatric: normal affect, A&O x 3 Skin: no rash <eJsus Deshpande - Last Filed: 03/30/18 07:52> Dx/Plan (1) Acute respiratory failure with hypoxia Code(s): J96.01 - ACUTE RESPIRATORY FAILURE WITH HYPOXIA Status: Acute (2) Recurrent pleural effusion on right Code(s): J90 - PLEURAL EFFUSION, NOT ELSEWHERE CLASSIFIED Status: Acute (3) Encephalopathy Code(s): G93.40 - ENCEPHALOPATHY, UNSPECIFIED Status: Acute (4) Atrial fibrillation with RVR Code(s): I48.91 - UNSPECIFIED ATRIAL FIBRILLATION Status: Resolved (5) Community acquired pneumonia Code(s): J18.9 - PNEUMONIA, UNSPECIFIED ORGANISM Status: Chronic (6) Thrombocytopenia Code(s): D69.6 - THROMBOCYTOPENIA, UNSPECIFIED Status: Acute (7) Hypokalemia Code(s): E87.6 - HYPOKALEMIA Status: Acute (8) Hyperlipidemia Code(s): E78.5 - HYPERLIPIDEMIA, UNSPECIFIED Status: Chronic (9) Psoriasis Code(s): L40.9 - PSORIASIS, UNSPECIFIED Status: Chronic - Plan Plan: 1. Acute hypoxic respiratory failure - currently on BIPAP - Dr. Fine on the case, appreciated his recommendations - Palliative Care consultation. Medical Power of Oil Field Tester available to make decisions. Sister in Law Sindi - Likely secondary to fluid overload and sedation from cardioversion - Will consider lasix when potassium improves - All oral medications held at this time - Per Dr. Fine, will hold on thoracentesis - Will attempt to wean off BIPAP as tolerated - Repeat CXR pending at this time 2. Recurrent pleural effusion on right with associated suspected pneumonia - Patient is not good surgical candidate - No sampling of fluid to determine etiology at this time - Respiratory support - Continue antibiotics 3. A-fib with RVR - Patient is s/p cardioversion with return to NSR - Off/On A-fib overnight - Currently on Amiodarone drip with good ventricular rate control - Dr. Gutiérrez consulted, appreciate his recommendations - Continue Amiodarone drip until patient is extubated, eating, and more stable. - Dr. Tomlin recommends Metoprolol if BP can tolerate - Will await further Cardiology recommendations 4. Encephalopathy - Secondary to respiratory failure and sedation - Improved 5. Thrombocytopenia - Unknown etiology - New this hospitalization - Platelet level pending at this time. - Held Lovenox this AM 6. Hypokalemia - On protocol to replenish - 3.4 this AM - Likely secondary to lasix dose 7. UTI - UA suggests infection - Culture with presumptive E coli - IV Abx providing coverage 8. HTN - Hold home losartan-HCTZ, metoprolol due to sepsis, maintaining BP wnl 9. Psoriasis - Held home methotrexate 10. GERD - IV Protonix 11. HLD - Held home Simvastatin Disposition: Guarded, will gather more information and make management decisions as appropriate. <Jesus Deshpande - Last Filed: 03/30/18 07:52> Attending Addendum - Attending Addendum Date/Time: 03/30/18 0553 I personally evaluated the patient and discussed the management with Dr. Deshpande. I agree with the History, Examination, Assessment and Plan documented above with any addition or exceptions noted below. The patient was extubated yesterday and is on bipap. Heart rate is stable. She is alert and oriented this morning. Will try to wean bipap. Pt may have thoracentesis today. <Ivonne García - Last Filed: 03/30/18 15:54>
--- NOTE | 2018-03-30 09:02 | RAD ---
PORTABLE CHEST 1 VIEW: Date: 03/30/18 Time: 0452 hours HISTORY: Respiratory failure. FINDINGS/IMPRESSION: Comparison made with exam of previous day. There has been interval removal of the endotracheal tubes. Nasogastric tube remains in place. Large r ight and small left pleural effusions are again seen. POS: [facility]
[2018-03-30] MEDS: Pantoprazole 40 MG VIAL IVP SCH ×2 (09:23→20:24)
[2018-03-30] MEDS ORDERED: Lidocaine 1% (PF) 30 ML VIAL ONE (11:35)
[2018-03-30] MEDS: Amiodarone HCl 450 MG, Admixture Fee 1 EACH in Dextrose 5% in Water 250 ML IVPB SCH (12:01)
[2018-03-30 12:20] LABS: Pleural Fluid, Amylase Less than 30 U/L (Not Available); Pleural Fluid, Glucose 123 mg/dL; Pleural Fluid, LDH 56 U/L (Not Available); Pleural Fluid, Protein 1.1 g/dL
[2018-03-30 12:32] LABS: Body Fluid Source THORACENTESIS FLD; Clarity Clear (Clear)
[2018-03-30 12:33] LABS: BF Color Yellow; RBC Background Count 0.003
[2018-03-30 12:49] LABS: BF RBC Count - Manual 102 /cumm; BF WBC/Nonhematics Ct. - Manua 124 /cumm
[2018-03-30 13:03] LABS: BF Segmented Neutrophils 50 %; Cell Count Non Hematic 17 %; Lymphocytes 33 %
[2018-03-30] MEDS: Dextrose 5 % And 0.9 % NaCl 1,000 ML IV SCH (17:16)
--- NOTE | 2018-03-30 17:32 | PDOC.CTH ---
Cardiology Progress Note - Subjective No new issues. Now extubated on BiPAP. - Objective Vital Signs Temp Pulse Resp Pulse Ox 03/30/18 16:00 97.7 F 03/30/18 15:00 95 27 H 100 03/30/18 11:00 98.1 F 03/30/18 08:41 102 H 94 L 03/30/18 08:40 98 35 H 94 L 03/30/18 07:41 96 03/30/18 07:00 97.9 F Admit Weight 145 lb Weight 150 lb 2.157 oz 03/29/18 03/30/18 03/31/18 06:59 06:59 06:59 Intake Total 1851.4 1720.6 897 Output Total 5075 1945 220 Balance -3223.6 -224.4 677 - Physical Examination General/Neuro: NAD Neck: no JVD present Lungs: other: (Reduced breath sounds. ) Heart: RRR Abdomen: NT/ND Extremities: + edema B (1+) - Telemetry Telemetry Rhythm: NSR - Labs Result Diagrams: 03/29/18 04:05 03/30/18 00:53 Troponin/CKMB Troponin I 0.018 ng/mL (< 0.028) 03/25/18 02:37 - Assessment/Plan 1. Afib RVR, rate controlled. 2. Hypokalemia 3. Acute on chronic systolic heart failure. 4. Respiratory failure thought to be due to mucus pluging after cardioversion. PLAN: - Continue amiodarone drip - Scheduled IV metoprolol as long as BP allows. - Currently holding Eliquis as she may need thoracenthesis versus surgical intervention for her complex pleural effusion. - K replacement per protocol.
[2018-03-30] MEDS ORDERED: Acetaminophen 1,000 MG in Premix Bag 1 BAG IVPB PRN (22:54)
--- NOTE | 2018-03-30 23:59 | OP ---
DATE OF PROCEDURE: 03/30/2018 PROCEDURE: Ms. Laboy is on noninvasive ventilation overnight. She was stable this morning. She had no complaints. She is very cooperative. I recommended an attempted thoracentesis. She was in the supine position and slightly rolled a little to the left. Right lateral chest was prepped with chlorhexidine as I would prep her for a chest tube. A 22-gauge needle was used to localize pleural fluid, surprisingly, this was easily aspirated. A small incision was made with a #11 blade. An 8-Slovak catheter was inserted into the pleural space and connected to a vacuum bottle. One liter of clear yellow pleural fluid was evacuated easily. This was sent for protein, LDH, glucose, amylase, and cell count. There are only 124 white cells, 102 red cells, protein is 1.1. LDH was 56. IMPRESSION: 1. Large transudative pleural effusion secondary to diastolic dysfunction associated with atrial fibrillation. 2. Transient respiratory failure secondary to a mucus plug. 3. Confusion that appears to clinically resolve. Checked on her multiple times throughout the day, and she has been very quick to answer questions appropriately in sitting and visiting with her ytovva-ze-bce. Hopefully, we can transfer out of the Critical Care Unit tomorrow. ZOILA
[2018-03-31] MEDS: Metoprolol Tartrate 5 MG/5 ML VIAL IVP SCH ×6 (00:47→23:27)
[2018-03-31] MEDS: Amiodarone HCl 450 MG, Admixture Fee 1 EACH in Dextrose 5% in Water 250 ML IVPB SCH ×2 (02:19→18:42)
[2018-03-31] MEDS: cefTRIAXone\\ROCEPHIN 2 GM in Sodium Chloride 0.9% 100 ML IVPB SCH (02:20)
[2018-03-31] MEDS: PROVENTIL INHALER 6.7 G (200 INHALATIONS) INH SCH ×5 (02:28→18:33)
[2018-03-31 05:38] LABS: ALT (SGPT) 26 U/L (8-55); AST (SGOT) 20 U/L (5-34); Alkaline Phosphatase 62 U/L (40-150); BUN (Urea Nitrogen) 15 mg/dL (9.8-20.1); Bilirubin, Total 0.3 mg/dL (0.2-1.2); Calc. Creatinine Clearance 64 mL/min (70-130); Calcium 8.2 mg/dL (7.8-10.44); Estimated GFR-MDRD 76; Globulin 2.1 g/dL (2.4-3.5); Glucose 144 mg/dL (83-110); Protein, Total 5.1 g/dL (6.0-8.3)
[2018-03-31 05:40] LABS: Band 17 % (5-11); Eosinophils 1 % (0-10); Hemoglobin 11.3 g/dL (12.0-16.0); Lymphocytes 8 % (21-51); MDiff Complete? YES; Macrocytosis SLIGHT = 6-15 cells (100X) (0-5/hpf); Mean Corpuscular HGB CONC 30.3 g/dL (32.0-36.0); Mean Platelet Volume 9.2 fL (7.4-10.4); Monocytes 12 % (0-10); Neutrophil 62 % (42-75); PLT Morphology Comment Appears Decreased; Platelet Count 98 thou/uL (130-400); RBC Distribution Width 14.9 % (11.5-14.5); Red Blood Cell (RBC) Count 3.43 mill/uL (4.20-5.40); White Blood Cell (WBC) Count 7.4 thou/uL (4.8-10.8)
[2018-03-31 05:42] LABS: Anion Gap 13 mmol/L (10-20); Carbon Dioxide 34 mmol/L (23-31); Chloride 101 mmol/L (98-107); Potassium 3.6 mmol/L (3.5-5.1); Sodium 144 mmol/L (136-145)
--- NOTE | 2018-03-31 06:20 | PDOC.FM ---
- Subjective Subjective: 83 yo female seen at bedside this AM. Patient is doing very well. Only requiring NC for O2 supplementation. Patient is A&O x3. Patient has no complains. She feels like " she has been sitting on her butt too long." Patient states that she is hungry. She has no symptoms of SOB, n/v/d. Patient states she feels too weak to be able to get to the bathroom on her own. No other complaints this morning. - Objective Vital Signs & Weight: Vital Signs (12 hours) Temp Pulse Resp Pulse Ox 03/31/18 04:00 97.5 F L 03/31/18 02:28 98 03/31/18 00:00 97.7 F 03/30/18 23:08 97 03/30/18 20:00 97.7 F 98 03/30/18 19:29 95 03/30/18 19:27 82 29 H 96 Weight Admit Weight 65.771 kg Weight 67.6 g Most Recent Monitor Data Heart Rate from ECG 63 NIBP 96/52 NIBP BP-Mean 66 Respiration from ECG 27 SpO2 100 I&O: 03/29/18 03/30/18 03/31/18 06:59 06:59 06:59 Intake Total 1851.4 1720.6 1873 Output Total 5075 1945 1475 Balance -3223.6 -224.4 398 Result Diagrams: 03/31/18 04:45 03/31/18 04:45 <Jesus Deshpande - Last Filed: 03/31/18 10:05> - Objective Vital Signs & Weight: Vital Signs (12 hours) Temp Pulse Resp BP Pulse Ox 03/31/18 10:55 96 03/31/18 10:52 93 24 H 96 03/31/18 09:17 97 03/31/18 08:47 97.8 F 82 20 132/62 97 03/31/18 07:42 95 03/31/18 07:00 97.6 F 03/31/18 04:00 97.5 F L 03/31/18 02:28 98 03/31/18 00:00 97.7 F Weight Admit Weight 65.771 kg Weight 67.6 g Most Recent Monitor Data Heart Rate from ECG 78 NIBP 132/68 NIBP BP-Mean 89 Respiration from ECG 30 SpO2 96 I&O: 03/30/18 03/31/18 04/01/18 06:59 06:59 06:59 Intake Total 1720.6 1873 90 Output Total 1945 1475 25 Balance -224.4 398 65 Result Diagrams: 03/31/18 04:45 03/31/18 04:45 <Monalisa Hardin - Last Filed: 03/31/18 11:47> Phys Exam - Physical Examination Constitutional: NAD HEENT: PERRLA, moist MMs Neck: no nodes Crackles bilateral bases. Right lung sounds diminished Cardiovascular: RRR, no significant murmur Gastrointestinal: soft, non-tender, no distention, positive bowel sounds Musculoskeletal: no edema Neurological: non-focal, moves all 4 limbs Psychiatric: normal affect, A&O x 3 Skin: no rash <Jesus Deshpande - Last Filed: 03/31/18 10:05> Dx/Plan (1) Acute respiratory failure with hypoxia Code(s): J96.01 - ACUTE RESPIRATORY FAILURE WITH HYPOXIA Status: Acute (2) Recurrent pleural effusion on right Code(s): J90 - PLEURAL EFFUSION, NOT ELSEWHERE CLASSIFIED Status: Acute (3) Encephalopathy Code(s): G93.40 - ENCEPHALOPATHY, UNSPECIFIED Status: Acute (4) Atrial fibrillation with RVR Code(s): I48.91 - UNSPECIFIED ATRIAL FIBRILLATION Status: Resolved (5) Community acquired pneumonia Code(s): J18.9 - PNEUMONIA, UNSPECIFIED ORGANISM Status: Chronic (6) Thrombocytopenia Code(s): D69.6 - THROMBOCYTOPENIA, UNSPECIFIED Status: Acute (7) Hypokalemia Code(s): E87.6 - HYPOKALEMIA Status: Acute (8) Hyperlipidemia Code(s): E78.5 - HYPERLIPIDEMIA, UNSPECIFIED Status: Chronic (9) Psoriasis Code(s): L40.9 - PSORIASIS, UNSPECIFIED Status: Chronic - Plan Plan: 1. Acute hypoxic respiratory failure, resolved - No O2 supplementation currently. - Dr. Fine on the case, appreciated his recommendations - Palliative Care consultation. Medical Power of General Maintenance Engineer available to make decisions. Sister in Law Sindi - Likely secondary to fluid overload and sedation from cardioversion - Will consider lasix as needed - Per Dr. Fine, successful thoracentesis 03/30. - Repeat CXR pending at this time 2. Recurrent pleural effusion on right with associated suspected pneumonia - Patient is not good surgical candidate - Sampling of fluid yielded transudative likely secondary to diastolic dysfunction - Respiratory support 3. A-fib with RVR - Patient is s/p cardioversion with return to NSR - Maintained in NSR overnight - Currently on Amiodarone drip with good ventricular rate control - Dr. Gutiérrez consulted, appreciate his recommendations - Continue Amiodarone drip until patient is extubated, eating, and more stable. - Dr. Tomlin recommends Metoprolol if BP can tolerate - Will await further Cardiology recommendations 4. Encephalopathy - Secondary to respiratory failure and sedation - Improved - Will allow patient to eat - IVF D/C 5. Thrombocytopenia - Unknown etiology - New this hospitalization - Platelet level 98 this AM - Held Lovenox this AM 6. Hypokalemia - On protocol to replenish - 3.6 this AM - Likely secondary to lasix dose 7. UTI - UA suggests infection - Culture with presumptive E coli - IV Abx providing coverage 8. HTN - Hold home losartan-HCTZ, metoprolol due to sepsis, maintaining BP wnl 9. Psoriasis - Held home methotrexate 10. GERD - IV Protonix 11. HLD - Held home Simvastatin Disposition: Improved, will transfer to Telemetry floor this AM. <Jesus Deshpande - Last Filed: 03/31/18 10:05> Attending Addendum - Attending Addendum Date/Time: 03/31/18 1122 I personally evaluated the patient and discussed the management with Dr. Deshpande I agree with the History, Examination, Assessment and Plan documented above with any addition or exceptions noted below. 83 yo female with multiple medical problems admitted for Afib with RVR and sepsis 2/2 UTI. HD#7 Patient awake and alert. Reading the paper in bed. No complaints today. VS reviewed. Labs reviewed. Sepsis 2/2 UTI: On Rocephin currently. Would switch to PO antibiotics. Sepsis resolved. Hypoxic respiratory distress: Resolved. Now out of ICU. On supplemental O2. Pulm following. A fib with RVR s/p cardioversion: Continue oral antiarrythmic and anticoagulant. Cards following. Psorasis: Stable. Previously on methotrexate. Holding due to infection and low blood counts. Thrombocytopenia: Monitor due to risk for bleeding. Continue inpatient management. ABrayMD <Monalisa Hardin - Last Filed: 03/31/18 11:47>
[2018-03-31] MEDS ORDERED: Furosemide 100 MG/10 ML VIAL SLOW IVP SCH (07:30)
[2018-03-31] MEDS: Pantoprazole 40 MG VIAL IVP SCH (08:01)
--- NOTE | 2018-03-31 08:44 | RAD ---
CHEST ONE VIEW: History: Dyspnea. Comparison: 03-30-18 FINDINGS: Cardiac silhouette is magnified and predominately obscured by large amount of right pleural fluid. Hwang zy opacity over the left hemithorax has the appearance of pleural fluid also. Pulmonary vasculature r emains engorged. Mediastinum remains midline with aortic calcification. Nasogastric tube no longer vi sible. No evidence of pneumothorax. IMPRESSION: 1. Bilateral pleural fluid and pulmonary edema appear stable. 2. Interval removal nasogastric tube. POS: H
--- NOTE | 2018-03-31 10:17 | PDOC.EVN ---
Event Note - Event Note Event Note: Transition of Care Note 03/31/18 Please refer to documentation by Dr. Unique Schwartz MD prior to 03/26/18 for care up date. Patient was initially admitted to the hospital for A-fib with RVR. Patient was started on an amiodarone drip without good control of her ventricular rate. Approximately 12:00 on 03/26/18 patient had Code Green called due to respiratory distress. Patient had Cardioversion for A-fib with RVR with Dr. Gutiérrez earlier in the day. Patient was then transported back to her room. She became increasingly confused and essentially unresponsive. Patient was then transferred immediately to the ICU and intubated. Patient was suspected to have had a mucous plug that she could not clear on her own. Patient was then intubated until 03/29/18. Patient was then extubated and transitioned to BIPAP until the afternoon of 03/30/18. Since that time she has been able to maintain oxygen saturation with NC between 2-3L flow. Patient underwent thoracentesis by Dr. Fine on 03/30/18 that yielded approximately 1L of transudative fluid likely secondary to diastolic dysfunction form A-fib with RVR. Patient has had multiple abnormal electrolyte abnormalities as well as thrombocytopenia during her hospitalization. She has currently had her anticoagulation held due to thrombocytopenia and also on a potassium replacement protocol for her hypokalemia. She has shown to have a very fragile fluid balance and has required Lasix on multiple occasions. Patient has had a past hospitalization where she was over diuresed. Since moving to the telemetry floor patient has had new orders placed for PT and OT. Her home medications have not been restarted at this time due to her recent decompensation. I would recommend restarting home medications that she could tolerate and then deferring to PT/OT recommendations. This patient would likely benefit from a rehab stay prior to discharge home. Please contact with any questions.
--- NOTE | 2018-03-31 10:39 | PRG ---
DATE OF SERVICE: 03/31/2018 Berenice Laboy remains on amiodarone. PHYSICAL EXAMINATION: VITAL SIGNS: Her vital signs are stable. She is afebrile. Respiratory rates in the 20s, blood pres sure 132/62. Intake and output was positive 398. That included 1000 mL taken out via the thoracente sis. She says she feels better than yesterday, but she has more accessory muscle use today. We are lore hadley her Lasix again this morning. Her IV fluids need to be Hep-locked. LUNGS: Clear with exception of decreased breath sounds at her right base. IMPRESSION: Respiratory failure associated with atrial fibrillation and diastolic dysfunction. She had very clearcut transudate in the right chest. Repeat thoracentesis is not indicated. PLAN: I will continue to follow with the other physicians. She is stable to move out of the [facility] Care Unit. I am concerned that her deconditioning will be the limiting factor in her surviving thi s hospitalization.
[2018-03-31] MEDS: Apixaban 2.5 MG TAB PO SCH (21:22)
[2018-03-31] MEDS: Cephalexin 250 MG CAP PO SCH (21:22)
[2018-03-31] MEDS: Acetaminophen 650 MG/20.3 ML UDCUP PO PRN (23:26)
[2018-04-01] MEDS: PROVENTIL INHALER 6.7 G (200 INHALATIONS) INH SCH ×7 (01:03→22:41)
[2018-04-01 05:38] LABS: Anion Gap 11 mmol/L (10-20); BUN (Urea Nitrogen) 14 mg/dL (9.8-20.1); Calc. Creatinine Clearance 65 mL/min (70-130); Calcium 8.6 mg/dL (7.8-10.44); Carbon Dioxide 37 mmol/L (23-31); Chloride 97 mmol/L (98-107); Estimated GFR-MDRD 75; Glucose 102 mg/dL (83-110); Magnesium 1.2 mg/dL (1.6-2.6); Sodium 141 mmol/L (136-145)
[2018-04-01] MEDS: Acetaminophen 650 MG/20.3 ML UDCUP PO PRN (06:07)
[2018-04-01] MEDS: Metoprolol Tartrate 5 MG/5 ML VIAL IVP SCH (06:07)
[2018-04-01 07:17] LABS: #Eosinphils 0.1 thou/uL (0.0-0.7); #Lymphocytes 0.7 thou/uL (1.20-3.40); #Monocytes 0.8 thou/uL (0.11-0.59); #Neutrophils 5.3 thou/uL (1.40-6.50); %Basophils 0.5 % (0.0-1.0); %Eosinophils 1.5 % (0.0-10.0); %Lymphocytes 10.6 % (21.0-51.0); %Monocytes 10.9 % (0.0-10.0); %Neutrophils 76.6 % (42.0-75.0); Hemoglobin 11.7 g/dL (12.0-16.0); Mean Platelet Volume 9.6 fL (7.4-10.4); Platelet Count 114 thou/uL (130-400); RBC Distribution Width 14.8 % (11.5-14.5); Red Blood Cell (RBC) Count 3.42 mill/uL (4.20-5.40); White Blood Cell (WBC) Count 6.9 thou/uL (4.8-10.8)
[2018-04-01] MEDS ORDERED: Furosemide 40 MG TAB PO SCH (07:30)
--- NOTE | 2018-04-01 07:40 | PDOC.FM ---
- Subjective Subjective: 83 yo F seen at bedside this morning. She is resting comfortably with no specific complaints. When asked about GI symptoms she notes that it has been a few days since she has had a BM and requests a laxative. She states that she feels like she is breathing well and is not SOB. There were no acute events over night. Pt was seen by PT yesterday who recommended continued PT in the hospital and [place] - Objective MAR Reviewed: Yes Vital Signs & Weight: Vital Signs (12 hours) Temp Pulse Resp BP Pulse Ox 04/01/18 07:14 100 04/01/18 07:13 71 16 100 04/01/18 03:53 71 18 97 04/01/18 03:42 97.5 F L 79 20 104/52 L 98 03/31/18 23:47 97.9 F 97 03/31/18 20:20 97.1 F L 66 18 112/53 L 97 Weight Admit Weight 65.771 kg Weight 70.307 kg Most Recent Monitor Data Heart Rate from ECG 78 NIBP 132/68 NIBP BP-Mean 89 Respiration from ECG 30 SpO2 96 I&O: 03/31/18 04/01/18 04/02/18 06:59 06:59 06:59 Intake Total 1873 1390 Output Total 1475 1925 Balance 398 -535 Result Diagrams: 04/01/18 04:39 04/01/18 04:39 <Mayur Pérez - Last Filed: 04/01/18 07:37> - Objective Vital Signs & Weight: Vital Signs (12 hours) Temp Pulse Resp BP Pulse Ox 04/01/18 07:20 97.5 F L 73 26 H 102/53 L 91 L 04/01/18 07:14 100 04/01/18 07:13 71 16 100 04/01/18 03:53 71 18 97 04/01/18 03:42 97.5 F L 79 20 104/52 L 98 03/31/18 23:47 97.9 F 97 Weight Admit Weight 65.771 kg Weight 70.307 kg Most Recent Monitor Data Heart Rate from ECG 78 NIBP 132/68 NIBP BP-Mean 89 Respiration from ECG 30 SpO2 96 I&O: 03/31/18 04/01/18 04/02/18 06:59 06:59 06:59 Intake Total 1873 1390 Output Total 1475 1925 Balance 398 -535 Result Diagrams: 04/01/18 04:39 04/01/18 04:39 <WilfredMonalisa - Last Filed: 04/01/18 10:20> Phys Exam - Physical Examination Constitutional: NAD HEENT: PERRLA Crackles in both bases, decreased breath sounds on right Cardiovascular: RRR, no significant murmur Gastrointestinal: soft, no distention Musculoskeletal: no edema, pulses present Neurological: non-focal, moves all 4 limbs Psychiatric: normal affect, A&O x 3 Skin: no rash <Mayur Pérez - Last Filed: 04/01/18 07:37> Dx/Plan (1) Atrial fibrillation with RVR Code(s): I48.91 - UNSPECIFIED ATRIAL FIBRILLATION Status: Acute (2) Urinary tract infection Status: Acute (3) Recurrent pleural effusion on right Code(s): J90 - PLEURAL EFFUSION, NOT ELSEWHERE CLASSIFIED Status: Chronic (4) Thrombocytopenia Code(s): D69.6 - THROMBOCYTOPENIA, UNSPECIFIED Status: Acute (5) Hypokalemia Code(s): E87.6 - HYPOKALEMIA Status: Resolved (6) Acute respiratory failure with hypoxia Code(s): J96.01 - ACUTE RESPIRATORY FAILURE WITH HYPOXIA Status: Resolved (7) Encephalopathy Code(s): G93.40 - ENCEPHALOPATHY, UNSPECIFIED Status: Resolved (8) Community acquired pneumonia Code(s): J18.9 - PNEUMONIA, UNSPECIFIED ORGANISM Status: Acute (9) HTN (hypertension) Code(s): I10 - ESSENTIAL (PRIMARY) HYPERTENSION Status: Chronic (10) Psoriasis Code(s): L40.9 - PSORIASIS, UNSPECIFIED Status: Chronic - Plan Plan: A-fib with RVR - Patient is s/p cardioversion with return to NSR. Pt has had periods of Afib, however has been NSR for about 24 hours. - Currently on Amiodarone drip. She is likely ready to move to PO, will discuss plan further with cardiology who has been consulted. - Continue Amiodarone drip until patient is extubated, eating, and more stable. - Pt has been receiving Metoprolol IV with no low systolic pressures. Will consider moving to PO today - Will await further Cardiology recommendations Acute hypoxic respiratory failure, resolved - Maintaining O2 sat on 2-3 L NC - Dr. Fine on the case, appreciated his recommendations - Will consider lasix as needed - Per Dr. Fine, successful thoracentesis 03/30. Recurrent pleural effusion on right with associated suspected pneumonia - s/p thoracentesis, fluid appears to be transudate and like associated with dCHF UTI - culture finds marrero sensitive e coli. Today is day 9 of abx, will dc tomorrow Thrombocytopenia - Unknown etiology, however improving - Lovenox was previously held, pt now getting eliquis Hypokalemia, resolved - continue to monitor BP Encephalopathy, resolved - Secondary to respiratory failure and sedation HTN - Current pressures are not elevated and often low. Will restart meds as BP can tolerate Psoriasis - Held home methotrexate, will restart on DC GERD - Protonix PO HLD - Home Simvastatin Disposition: Stable. continue to monitor on tele. Pt will need SNF on dc. Also, pt frequently changes her code preferences. Will consult palliative to have a conversation regarding her options. <Mayur Pérez - Last Filed: 04/01/18 07:37> Attending Addendum - Attending Addendum Date/Time: 04/01/18 1015 I personally evaluated the patient and discussed the management with Dr. Pérez I agree with the History, Examination, Assessment and Plan documented above with any addition or exceptions noted below. 83 yo female with multiple medical problems admitted for Afib with RVR and sepsis 2/2 UTI. HD#8 Patient awake and alert. No complaints overnight. No acute events. Still on supplemental O2. VS reviewed. Labs reviewed. Sepsis 2/2 UTI: Sepsis resolved. Has 2 more days of antibiotics. Hypoxic respiratory distress: Resolved. Now out of ICU. On supplemental O2. Pulm following. Continue to wean supplemental O2. Continue Lasix to help with pulmonary edema/effusion. IS to bedside. A fib with RVR s/p cardioversion: Continue oral antiarrythmic and anticoagulant. Cards following. Large pleural effusion: s/p thoracentesis. Transudate. pEFHF with diastolic dysfunction: Cards following. On lasix and strict fluid balance. Unable to tolerate other HF medications at this time due to BP. Psorasis: Stable. Previously on methotrexate. Holding due to infection and low blood counts. Thrombocytopenia: Improving. Continue inpatient management. Cards and pulm following. ABrayMD <Monalisa Hardin - Last Filed: 04/01/18 10:20>
[2018-04-01 08:44] LABS: MDiff Complete? YES; Macrocytosis SLIGHT = 6-15 cells (100X) (0-5/hpf); PLT Morphology Comment Appears Decreased
[2018-04-01] MEDS ORDERED: Amiodarone 200 MG TAB PO SCH (10:15)
[2018-04-01] MEDS ORDERED: Magnesium Sulfate 3 GM in Sodium Chloride 0.9% 100 ML IVPB SCH (10:15)
[2018-04-01] MEDS: Polyethylene Glycol 3350 17 GM Packet PO SCH (10:39)
[2018-04-01] MEDS: Furosemide 40 MG/4 ML VIAL SLOW IVP SCH (10:42)
[2018-04-01] MEDS: Cephalexin 250 MG CAP PO SCH ×2 (10:42→20:47)
--- NOTE | 2018-04-01 16:09 | PRG ---
DATE OF SERVICE: 04/01/2018 SUBJECTIVE: Ms. Laboy is doing well. She was actually sitting in bed with her [id number] paying bills OBJECTIVE: VITAL SIGNS: She is afebrile, heart rate is in the 70s, respiratory rate is 20 , oximetry is 95 on 2 liters. Intake and output is negative 535. LUNGS: Remarkable for decreased breath sounds at her right base. HEART: Regular rhythm. ABDOMEN: Soft. IMPRESSION: 1. Atrial fibrillation. 2. Diastolic dysfunction. 3. Transudative right effusion secondary to #1 and #2. 4. Anemia with an increased mean corpuscular volume. A folate level has not been checked, so this might be considered. PLAN: Continue current care. Try to keep her in negative fluid balance as long as her renal function, tolerates that, and try to keep her rate under control. Her BUN today is 14 and creatinine is 0.74. MTDD
[2018-04-01] MEDS: Apixaban 2.5 MG TAB PO SCH (16:38)
[2018-04-01] MEDS: Apixaban 5 MG TAB PO SCH (20:46)
[2018-04-01] MEDS: Amiodarone 200 MG TAB PO SCH (20:47)
[2018-04-01] MEDS: Atorvastatin Calcium 10 MG TAB PO SCH (20:47)
[2018-04-01] MEDS ORDERED: Simvastatin 20 MG TAB PO SCH (21:00)
[2018-04-02] MEDS: Acetaminophen 650 MG/20.3 ML UDCUP PO PRN (01:22)
[2018-04-02] MEDS: PROVENTIL INHALER 6.7 G (200 INHALATIONS) INH SCH ×6 (02:33→22:35)
[2018-04-02] MEDS: Benzonatate 100 MG CAP PO PRN (02:41)
[2018-04-02 05:31] LABS: BUN (Urea Nitrogen) 12 mg/dL (9.8-20.1); Calc. Creatinine Clearance 74 mL/min (70-130); Calcium 8.8 mg/dL (7.8-10.44); Estimated GFR-MDRD 87; Glucose 104 mg/dL (83-110); Magnesium 1.7 mg/dL (1.6-2.6)
[2018-04-02 05:40] LABS: Anion Gap 16 mmol/L (10-20); Carbon Dioxide 36 mmol/L (23-31); Chloride 91 mmol/L (98-107); Potassium 3.7 mmol/L (3.5-5.1); Sodium 139 mmol/L (136-145)
[2018-04-02] MEDS ORDERED: Magnesium Sulfate 3 GM in Sodium Chloride 0.9% 100 ML IVPB SCH (06:15)
[2018-04-02] MEDS: Amiodarone 200 MG TAB PO SCH ×2 (08:20→21:50)
[2018-04-02] MEDS: Furosemide 40 MG/4 ML VIAL SLOW IVP SCH (08:21)
[2018-04-02] MEDS: Cephalexin 250 MG CAP PO SCH ×2 (08:21→21:50)
[2018-04-02] MEDS: Apixaban 5 MG TAB PO SCH ×2 (08:21→21:50)
[2018-04-02] MEDS: Polyethylene Glycol 3350 17 GM Packet PO SCH (08:21)
--- NOTE | 2018-04-02 08:38 | PDOC.FM ---
- Subjective Subjective: 83 yo F seen at bedside this am resting comfortably. She states that she feels well this morning and has no specific complaints. Over night her heart rate increased again over 100 after being well controlled the day prior. - Objective MAR Reviewed: Yes Vital Signs & Weight: Vital Signs (12 hours) Temp Pulse Resp BP BP Pulse Ox 04/02/18 08:00 97.9 F 121 H 20 127/81 97 04/02/18 07:19 90 16 97 04/02/18 04:15 97.6 F 118 H 17 125/64 100 04/02/18 02:33 113 H 16 98 04/02/18 00:20 98.1 F 121 H 22 H 135/85 92 L 04/01/18 22:41 83 16 97 Weight Admit Weight 65.771 kg Weight 64.274 kg Most Recent Monitor Data Heart Rate from ECG 78 NIBP 132/68 NIBP BP-Mean 89 Respiration from ECG 30 SpO2 96 I&O: 04/01/18 04/02/18 04/03/18 06:59 06:59 06:59 Intake Total 1500 310 Output Total 1925 2600 Balance -425 -2187 Result Diagrams: 04/01/18 04:39 04/02/18 04:37 <Mayur Pérez - Last Filed: 04/02/18 08:34> - Objective Vital Signs & Weight: Vital Signs (12 hours) Temp Pulse Resp BP BP Pulse Ox 04/02/18 14:09 89 16 93 L 04/02/18 12:30 104 H 04/02/18 11:19 98.1 F 104 H 20 146/64 H 94 L 04/02/18 10:54 109 H 18 78 L 04/02/18 09:05 121 H 04/02/18 08:00 97.9 F 121 H 20 127/81 97 04/02/18 07:19 90 16 97 04/02/18 04:15 97.6 F 118 H 17 125/64 100 Weight Admit Weight 65.771 kg Weight 64.274 kg Most Recent Monitor Data Heart Rate from ECG 78 NIBP 132/68 NIBP BP-Mean 89 Respiration from ECG 30 SpO2 96 I&O: 04/01/18 04/02/18 04/03/18 06:59 06:59 06:59 Intake Total 1500 310 Output Total 1925 2600 Balance -425 -3540 Result Diagrams: 04/01/18 04:39 04/02/18 04:37 <Monalisa Hardin - Last Filed: 04/02/18 14:36> Phys Exam - Physical Examination Constitutional: NAD HEENT: moist MMs Neck: no JVD Respiratory: clear to auscultation bilateral Cardiovascular: no significant murmur Tachycardic Gastrointestinal: soft, non-tender, no distention Musculoskeletal: no edema Neurological: non-focal, normal sensation, moves all 4 limbs Psychiatric: normal affect, A&O x 3 Skin: no rash <EktabarbaraMayur - Last Filed: 04/02/18 08:34> Dx/Plan (1) Atrial fibrillation with RVR Code(s): I48.91 - UNSPECIFIED ATRIAL FIBRILLATION Status: Acute (2) Urinary tract infection Status: Acute (3) Recurrent pleural effusion on right Code(s): J90 - PLEURAL EFFUSION, NOT ELSEWHERE CLASSIFIED Status: Chronic (4) Thrombocytopenia Code(s): D69.6 - THROMBOCYTOPENIA, UNSPECIFIED Status: Acute (5) Hypokalemia Code(s): E87.6 - HYPOKALEMIA Status: Resolved (6) Acute respiratory failure with hypoxia Code(s): J96.01 - ACUTE RESPIRATORY FAILURE WITH HYPOXIA Status: Resolved (7) Encephalopathy Code(s): G93.40 - ENCEPHALOPATHY, UNSPECIFIED Status: Resolved (8) Community acquired pneumonia Code(s): J18.9 - PNEUMONIA, UNSPECIFIED ORGANISM Status: Acute (9) HTN (hypertension) Code(s): I10 - ESSENTIAL (PRIMARY) HYPERTENSION Status: Chronic (10) Psoriasis Code(s): L40.9 - PSORIASIS, UNSPECIFIED Status: Chronic - Plan Plan: A-fib with RVR - Patient is s/p cardioversion with return to NSR. Over night pt converted to a fib and rate has been around 120 - Now on PO amiodarone - Restart home metoprolol - Cardiology consulted Acute hypoxic respiratory failure, resolved - Maintaining O2 sat on 2 L, will attempt to wean O2 today - Dr. Fine on the case, appreciated his recommendations - Will consider lasix as needed - Per Dr. Fine, successful thoracentesis 03/30. Recurrent pleural effusion on right with associated suspected pneumonia - s/p thoracentesis, fluid appears to be transudate and like associated with dCHF UTI - culture finds marrero sensitive e coli. Today is last day of abx Thrombocytopenia - Unknown etiology, however improving - Lovenox was previously held, pt now getting eliquis Hypokalemia, resolved - continue to monitor BP Encephalopathy, resolved - Secondary to respiratory failure and sedation HTN - Current pressures are not elevated and often low. Will restart meds as BP can tolerate Psoriasis - Held home methotrexate, will restart on DC GERD - Protonix PO HLD - Home Simvastatin Disposition: Stable. continue to monitor on tele. Pt will need SNF on dc. [facility]ing [facility] <Mayur Pérez - Last Filed: 04/02/18 08:34> Attending Addendum - Attending Addendum Date/Time: 04/02/18 0346 I personally evaluated the patient and discussed the management with Dr. Pérez I agree with the History, Examination, Assessment and Plan documented above with any addition or exceptions noted below. 83 yo female with multiple medical problems admitted for Afib with RVR and sepsis 2/2 UTI. HD#9 Patient awake and alert. Now back in A fib with RVR. Cards managing this AM with dig. Still on supplemental O2. VS reviewed. Labs reviewed. Sepsis 2/2 UTI: Sepsis resolved. Has 1 more day of antibiotics. Hypoxic respiratory distress: Resolved. Now out of ICU. On supplemental O2. Pulm following. Continue to wean supplemental O2. Continue Lasix to help with pulmonary edema/effusion. IS to bedside. A fib with RVR s/p cardioversion: Continue oral antiarrythmic and anticoagulant. Cards following. Now with RVR this AM. Given dose of dig by cards. Will follow up cards recs. Large pleural effusion: s/p thoracentesis. Transudate. No grotwh x 3 days. pEFHF with diastolic dysfunction: Cards following. On lasix and strict fluid balance. Now back on metoprolol. Psorasis: Stable. Previously on methotrexate. Restart outpatient. Thrombocytopenia: Improving. Deconditioning: PT to follow while inpatient. Needs SNF. CM consulted to help with placement. Continue inpatient management. Cards and pulm following. ABrayMD <Monalisa Hardin - Last Filed: 04/02/18 14:36>
[2018-04-02] MEDS ORDERED: Digoxin 0.5 MG/2 ML AMP SLOW IVP SCH ×2 (08:45→10:00)
[2018-04-02] MEDS ORDERED: Morphine 2 MG/ML SYRINGE SLOW IVP PRN ×2 (12:42)
--- NOTE | 2018-04-02 18:38 | PRG ---
DATE OF SERVICE: 04/02/2018 SUBJECTIVE: Ms. Laboy is feeling great. She finished paying her bills today. OBJECTIVE: VITAL SIGNS: Heart is 89, respiratory rate 16, oximetry 93 on 2 liters. She is afebrile. Blood pressure 146/64. Intake and output is negative 2290. LUNGS: Remarkable for decreased breath sounds at her right base. HEART: Regular rhythm. ABDOMEN: Soft. LABORATORY DATA: BUN is 12, creatinine is 0.65, IMPRESSION: 1. Chronic right-sided pleural effusion secondary to atrial fibrillation and diastolic dysfunction, status post thoracentesis. 2. Status post mechanical ventilation, respiratory distress associated with rapid atrial fibrillation. 3. Deconditioning. PLAN: Continue rate control. Diuresis with attention to electrolytes, BUN and creatinine and then eventual transfer to a Skilled Unit or rehabilitation. ZOILA
[2018-04-02] MEDS: Atorvastatin Calcium 10 MG TAB PO SCH (21:50)
[2018-04-03] MEDS: PROVENTIL INHALER 6.7 G (200 INHALATIONS) INH SCH ×6 (02:29→22:52)
[2018-04-03 07:04] LABS: BUN (Urea Nitrogen) 11 mg/dL (9.8-20.1); Calc. Creatinine Clearance 63 mL/min (70-130); Calcium 9.2 mg/dL (7.8-10.44); Estimated GFR-MDRD 84; Glucose 91 mg/dL (83-110)
[2018-04-03 07:13] LABS: Anion Gap 15 mmol/L (10-20); Chloride 85 mmol/L (98-107); Sodium 138 mmol/L (136-145)
[2018-04-03 07:40] LABS: Carbon Dioxide 42 mmol/L (23-31)
[2018-04-03] MEDS: Furosemide 40 MG/4 ML VIAL SLOW IVP SCH (08:20)
[2018-04-03] MEDS: Amiodarone 200 MG TAB PO SCH ×2 (08:20→20:52)
[2018-04-03] MEDS: Digoxin 0.125 MG TAB PO SCH (08:20)
[2018-04-03] MEDS: Cephalexin 250 MG CAP PO SCH ×2 (08:20→20:52)
[2018-04-03] MEDS: Apixaban 5 MG TAB PO SCH ×2 (08:20→20:52)
[2018-04-03] MEDS: Polyethylene Glycol 3350 17 GM Packet PO SCH (08:21)
--- NOTE | 2018-04-03 08:26 | PDOC.FM ---
- Subjective Subjective: 83 yo F seen at bedside this morning. She has no specific complaints. Over the course of yesterday her heart rate stabilized below 100. There were no acute events. - Objective MAR Reviewed: Yes Vital Signs & Weight: Vital Signs (12 hours) Temp Pulse Resp BP Pulse Ox 04/03/18 08:20 68 04/03/18 07:53 97.3 F L 68 16 146/93 H 96 04/03/18 07:08 70 14 95 04/03/18 03:50 97.4 F L 66 16 156/67 H 96 04/03/18 02:29 66 16 95 04/03/18 00:00 97.6 F 66 17 134/60 97 04/02/18 22:35 67 16 96 Weight Admit Weight 65.771 kg Weight 62.051 kg Most Recent Monitor Data Heart Rate from ECG 78 NIBP 132/68 NIBP BP-Mean 89 Respiration from ECG 30 SpO2 96 I&O: 04/02/18 04/03/18 04/04/18 06:59 06:59 06:59 Intake Total 310 1080 Output Total 2600 500 Balance -2290 580 Result Diagrams: 04/01/18 04:39 04/03/18 06:36 <Mayur Pérez - Last Filed: 04/03/18 08:24> - Objective Vital Signs & Weight: Vital Signs (12 hours) Temp Pulse Pulse Pulse Resp BP BP 04/07/18 15:01 72 16 04/07/18 11:31 98 F 72 16 04/07/18 10:59 76 16 04/07/18 09:01 78 80 144/64 H 190/77 H 04/07/18 07:44 04/07/18 07:43 80 16 04/07/18 07:27 97.9 F 79 18 04/07/18 03:42 04/07/18 03:38 97.4 F L 73 16 BP BP BP Pulse Ox 04/07/18 15:01 04/07/18 11:31 134/60 94 L 04/07/18 10:59 04/07/18 09:01 04/07/18 07:44 91 L 04/07/18 07:43 04/07/18 07:27 160/72 H 96 04/07/18 03:42 94 L 04/07/18 03:38 129/58 L 94 L Weight Admit Weight 65.771 kg Weight 60.781 kg Most Recent Monitor Data Heart Rate from ECG 65 NIBP 126/25 NIBP BP-Mean 58 Respiration from ECG 23 SpO2 100 I&O: 04/06/18 04/07/18 04/08/18 06:59 06:59 06:59 Intake Total 130 960 Output Total 2950 800 Balance -2820 160 Result Diagrams: 04/07/18 04:29 04/07/18 04:29 <Monalisa Hardin - Last Filed: 04/07/18 15:39> Phys Exam - Physical Examination Constitutional: NAD HEENT: PERRLA, moist MMs Neck: no JVD Respiratory: clear to auscultation bilateral Cardiovascular: RRR, no significant murmur Gastrointestinal: non-tender, no distention Musculoskeletal: no edema, pulses present Neurological: normal sensation, moves all 4 limbs Psychiatric: normal affect Skin: no rash, normal turgor Deviation from normal: Brusing around midline IV on R arm <Mayur Pérez - Last Filed: 04/03/18 08:24> Dx/Plan (1) Metabolic alkalosis Code(s): E87.3 - ALKALOSIS Status: Acute (2) Atrial fibrillation with RVR Code(s): I48.91 - UNSPECIFIED ATRIAL FIBRILLATION Status: Acute (3) Urinary tract infection Status: Acute (4) Recurrent pleural effusion on right Code(s): J90 - PLEURAL EFFUSION, NOT ELSEWHERE CLASSIFIED Status: Chronic (5) Thrombocytopenia Code(s): D69.6 - THROMBOCYTOPENIA, UNSPECIFIED Status: Acute (6) Hypokalemia Code(s): E87.6 - HYPOKALEMIA Status: Resolved (7) Acute respiratory failure with hypoxia Code(s): J96.01 - ACUTE RESPIRATORY FAILURE WITH HYPOXIA Status: Resolved (8) Encephalopathy Code(s): G93.40 - ENCEPHALOPATHY, UNSPECIFIED Status: Resolved (9) Community acquired pneumonia Code(s): J18.9 - PNEUMONIA, UNSPECIFIED ORGANISM Status: Acute (10) HTN (hypertension) Code(s): I10 - ESSENTIAL (PRIMARY) HYPERTENSION Status: Chronic (11) Psoriasis Code(s): L40.9 - PSORIASIS, UNSPECIFIED Status: Chronic - Plan Plan: Metabolic Acidosis - most likely associated with loop diuretics. - Will stop lasix as pt appears to be euvolemic and approaching respiratory baseline - Monitor recheck labs this afternoon, if down trending, will consider discharge pending cardiology recommendations A-fib with RVR - Patient is s/p cardioversion with return to NSR. Over night pt converted to a fib and rate has been around 120 - Now on PO amiodarone, metoprolol, and digoxin - Cardiology consulted. Appreciate recommendations regarding dc timing, meds, and follow up. Acute hypoxic respiratory failure, resolved - Maintaining O2 sat on 2 L, will attempt to wean again today - Dr. Fine on the case, appreciated his recommendations - Will consider lasix as needed - Per Dr. Fine, successful thoracentesis 03/30. Recurrent pleural effusion on right with associated suspected pneumonia - s/p thoracentesis, fluid appears to be transudate and like associated with dCHF UTI - resolved Thrombocytopenia - Unknown etiology, however improving - Lovenox was previously held, pt now getting eliquis Hypokalemia, resolved - continue to monitor BP Encephalopathy, resolved - Secondary to respiratory failure and sedation HTN - Current pressures are not elevated and often low. Will restart meds as BP can tolerate Psoriasis - Held home methotrexate, will restart on DC GERD - Protonix PO HLD - Home Simvastatin Disposition: Stable. continue to monitor on tele. Pt will need SNF on dc. Waiting for acceptance to [facility] <Mayur Pérez - Last Filed: 04/03/18 08:24> Attending Addendum - Attending Addendum Date/Time: 04/03/18 2282 I personally evaluated the patient and discussed the management with Dr. Pérez I agree with the History, Examination, Assessment and Plan documented above with any addition or exceptions noted below. 83 yo female with multiple medical problems admitted for Afib with RVR and sepsis 2/2 UTI. HD#10 Patient awake and alert. Still on supplemental O2. Denies complaints this AM. VS reviewed. Labs reviewed. Sepsis 2/2 UTI: Sepsis resolved. Has completed antibiotics. Hypoxic respiratory distress: Stable. Now out of ICU. Remains on supplemental O2 which is not patient's baseline. Pulm following. Continue to wean supplemental O2 as tolerated. IS to bedside. Consider repeat CXR. A fib with RVR s/p cardioversion: Continue oral antiarrythmic and anticoagulant per cards. Cards following. Large pleural effusion: s/p thoracentesis. Transudate. Due to HF and arrhythymia. Not able to tolerate Lasix due to metabolic alkalosis. Concern for possible recurrence. pEFHF with diastolic dysfunction: Cards following. On strict fluid balance. Now back on metoprolol. Lasix held due to metabolic alkalosis. Psorasis: Stable. Previously on methotrexate. Restart outpatient. Thrombocytopenia: Improving. Monitor as needed. Deconditioning: PT to follow while inpatient. Needs SNF. Has been approved at [facility]. Metabolic alkalosis: Trend labs. Lasix held. Started on acetazolamide. Continue inpatient management. Jovan <Monalisa Hardin - Last Filed: 04/07/18 15:39>
[2018-04-03] MEDS: AcetaZOLAMIDE 250 MG TAB PO SCH ×2 (09:32→20:52)
--- NOTE | 2018-04-03 13:47 | PRG ---
DATE OF SERVICE: 04/03/2018 PHYSICAL EXAMINATION: VITAL SIGNS: Ms. Laboy is afebrile, heart rate in the 60s, respiratory rate 16, oximetry is 96, blo od pressure 146/93. She denied shortness of breath. LUNGS: Her lungs were clear. HEART: Regular rhythm. ABDOMEN: Abdomen is soft. She was reporting low anterior abdominal discomfort. She was not tender on exam. I asked the nurse to bladder scan her and she had over 400 mL of urine in her bladder so a Garcia is b eing placed now. I thought she was on nebulizer treatments, but these have been discontinued. I have seen ipratropium cause urinary retention in elderly females in the past. LABORATORY: Sodium is 138, potassium 4, chloride 85, bicarbonate 42, BUN 11, creatinine 0.67. Diamox was started today. IMPRESSION: 1. Cardiogenic pulmonary edema associated with atrial fibrillation and diastolic dysfunction. 2. Metabolic alkalosis associated with her diuresis. Lasix has been held. Diamox was started by sewing department supervisor, Dr. Gutiérrez. Continue current care. Garcia has been placed. She is on full dose anticoagulants again. I do not feel she has a significant fall risk and it would not be unreasonable to hold this until we are sure she is stable with ambulation.
[2018-04-03 13:53] LABS: Bilirubin Negative (Negative); Blood, Urine Moderate (Negative); Clarity CLEAR (Clear); Glucose, Urine (Dipstick) Negative (Negative); Leukocyte Negative (Negative); Nitrite Negative (Negative); Protein, Urine (Dipstick) Trace mg/dL (Neg-Trace); Specific Gravity, Urine 1.011 (1.002-1.036); Urobilinogen 0.2 mg/dL (0.2-1.0); pH, Urine 7.5 (5.0-9.0)
[2018-04-03 13:55] LABS: Bacteria/HPF None Seen HPF (None Seen); Hyaline Casts/LPF 0-3 HYALINE CAST LPF (0-3 Hyaline); Pathc Cast-AUWi Flag 0.29 (0-2.49); Squamous Epithelial 0-3 HPF (0-3); WBC/HPF 0-3 HPF (0-3)
[2018-04-03 14:12] LABS: Potassium, Urine 24.4 mmol/L
[2018-04-03] MEDS: Acetaminophen 650 MG/20.3 ML UDCUP PO PRN (14:52)
[2018-04-03] MEDS ORDERED: Acetaminophen 325 MG TAB PO PRN (15:10)
[2018-04-03] MEDS: Atorvastatin Calcium 10 MG TAB PO SCH (20:52)
[2018-04-04] MEDS: PROVENTIL INHALER 6.7 G (200 INHALATIONS) INH SCH ×6 (02:14→23:34)
[2018-04-04 06:58] LABS: BUN (Urea Nitrogen) 15 mg/dL (9.8-20.1); Calc. Creatinine Clearance 63 mL/min (70-130); Calcium 9.2 mg/dL (7.8-10.44); Estimated GFR-MDRD 83; Glucose 76 mg/dL (83-110)
[2018-04-04 07:07] LABS: Anion Gap 13 mmol/L (10-20); Carbon Dioxide 40 mmol/L (23-31); Chloride 86 mmol/L (98-107); Potassium 4.4 mmol/L (3.5-5.1); Sodium 135 mmol/L (136-145)
[2018-04-04] MEDS: Amiodarone 200 MG TAB PO SCH ×2 (08:38→20:57)
[2018-04-04] MEDS: AcetaZOLAMIDE 250 MG TAB PO SCH ×2 (08:38→20:57)
[2018-04-04] MEDS: Apixaban 5 MG TAB PO SCH ×2 (08:38→20:57)
[2018-04-04] MEDS: Polyethylene Glycol 3350 17 GM Packet PO SCH (08:39)
[2018-04-04] MEDS: Digoxin 0.125 MG TAB PO SCH (08:43)
--- NOTE | 2018-04-04 08:58 | PDOC.FM ---
- Subjective Subjective: Pt seen at bedside this morning resting comfortably. Today she states that she is feeling well and has no specific complaints. There were no acute events over night. - Objective Vital Signs & Weight: Vital Signs (12 hours) Temp Pulse Resp BP Pulse Ox 04/04/18 08:43 58 L 04/04/18 08:34 97.7 F 58 L 16 133/58 L 96 04/04/18 06:57 59 L 15 97 04/04/18 04:00 97.1 F L 55 L 21 H 121/58 L 98 04/04/18 02:14 59 L 14 96 04/03/18 22:52 56 L 14 98 Weight Admit Weight 65.771 kg Weight 62.278 kg Most Recent Monitor Data Heart Rate from ECG 78 NIBP 132/68 NIBP BP-Mean 89 Respiration from ECG 30 SpO2 96 I&O: 04/03/18 04/04/18 04/05/18 06:59 06:59 06:59 Intake Total 1080 720 Output Total 500 1075 Balance 580 -355 Result Diagrams: 04/01/18 04:39 04/04/18 06:21 <Mayur Pérez - Last Filed: 04/04/18 08:50> - Objective Vital Signs & Weight: Vital Signs (12 hours) Temp Pulse Pulse Pulse Resp BP BP 04/07/18 15:01 72 16 04/07/18 11:31 98 F 72 16 04/07/18 10:59 76 16 04/07/18 09:01 78 80 144/64 H 190/77 H 04/07/18 07:44 04/07/18 07:43 80 16 04/07/18 07:27 97.9 F 79 18 04/07/18 03:42 BP BP Pulse Ox 04/07/18 15:01 04/07/18 11:31 134/60 94 L 04/07/18 10:59 04/07/18 09:01 04/07/18 07:44 91 L 04/07/18 07:43 04/07/18 07:27 160/72 H 96 04/07/18 03:42 94 L Weight Admit Weight 65.771 kg Weight 60.781 kg Most Recent Monitor Data Heart Rate from ECG 65 NIBP 126/25 NIBP BP-Mean 58 Respiration from ECG 23 SpO2 100 I&O: 04/06/18 04/07/18 04/08/18 06:59 06:59 06:59 Intake Total 130 960 Output Total 2950 800 Balance -2820 160 Result Diagrams: 04/07/18 04:29 04/07/18 04:29 <Monalisa Hardin - Last Filed: 04/07/18 15:41> Phys Exam - Physical Examination Constitutional: NAD HEENT: moist MMs Neck: no JVD Respiratory: clear to auscultation bilateral Cardiovascular: RRR, no significant murmur Gastrointestinal: soft, non-tender, no distention, positive bowel sounds Musculoskeletal: no edema Neurological: moves all 4 limbs Psychiatric: normal affect Skin: no rash, normal turgor <Mayur Pérez - Last Filed: 04/04/18 08:50> Dx/Plan (1) Metabolic alkalosis Code(s): E87.3 - ALKALOSIS Status: Acute (2) Atrial fibrillation with RVR Code(s): I48.91 - UNSPECIFIED ATRIAL FIBRILLATION Status: Acute (3) Urinary tract infection Status: Acute (4) Recurrent pleural effusion on right Code(s): J90 - PLEURAL EFFUSION, NOT ELSEWHERE CLASSIFIED Status: Chronic (5) Thrombocytopenia Code(s): D69.6 - THROMBOCYTOPENIA, UNSPECIFIED Status: Acute (6) Hypokalemia Code(s): E87.6 - HYPOKALEMIA Status: Resolved (7) Acute respiratory failure with hypoxia Code(s): J96.01 - ACUTE RESPIRATORY FAILURE WITH HYPOXIA Status: Resolved (8) Encephalopathy Code(s): G93.40 - ENCEPHALOPATHY, UNSPECIFIED Status: Resolved (9) Community acquired pneumonia Code(s): J18.9 - PNEUMONIA, UNSPECIFIED ORGANISM Status: Acute (10) HTN (hypertension) Code(s): I10 - ESSENTIAL (PRIMARY) HYPERTENSION Status: Chronic (11) Psoriasis Code(s): L40.9 - PSORIASIS, UNSPECIFIED Status: Chronic - Plan Plan: Metabolic Acidosis - improving today - most likely associated with loop diuretics. A-fib with RVR - Patient is s/p cardioversion with return to NSR. Rate is now controlled - Now on PO amiodarone, metoprolol, and digoxin - Cardiology consulted. Appreciate recommendations regarding dc timing, meds, and follow up. Acute hypoxic respiratory failure, resolved - Maintaining O2 sat on 1-2 L, will attempt to wean again today - Dr. Fine on the case, appreciated his recommendations - Will consider lasix as needed - Per Dr. Fine, successful thoracentesis 03/30. Recurrent pleural effusion on right with associated suspected pneumonia - s/p thoracentesis, fluid appears to be transudate and like associated with dCHF UTI - resolved Thrombocytopenia - improved Hypokalemia, resolved - continue to monitor BP Encephalopathy, resolved - Secondary to respiratory failure and sedation HTN - Current pressures are not elevated and often low. Will restart meds as BP can tolerate Psoriasis - Held home methotrexate, will restart on DC GERD - Protonix PO HLD - Home Simvastatin Disposition: Stable. Ready to dc today <Mayur Pérez - Last Filed: 04/04/18 08:50> Attending Addendum - Attending Addendum Date/Time: 04/04/18 1090 I personally evaluated the patient and discussed the management with Dr. Pérez I agree with the History, Examination, Assessment and Plan documented above with any addition or exceptions noted below. 83 yo female with multiple medical problems admitted for Afib with RVR and sepsis 2/2 UTI. HD#11 Patient awake and alert. Still on supplemental O2. Denies complaints this AM. VS reviewed. Labs reviewed. Sepsis 2/2 UTI: Sepsis resolved. Has completed antibiotics. Hypoxic respiratory distress: Stable. Now out of ICU. Remains on supplemental O2 which is not patient's baseline. Pulm following. Continue to wean supplemental O2 as tolerated. IS to bedside. Consider repeat CXR. A fib with RVR s/p cardioversion: Continue oral antiarrythmic and anticoagulant per cards. Cards following. Large pleural effusion: s/p thoracentesis. Transudate. Due to HF and arrhythymia. Not able to tolerate Lasix due to metabolic alkalosis. Concern for possible recurrence. Pulm following. pEFHF with diastolic dysfunction: Cards following. On strict fluid balance. Now back on metoprolol. Lasix held due to metabolic alkalosis. Psorasis: Stable. Previously on methotrexate. Restart outpatient. Thrombocytopenia: Improving. Monitor as needed. Deconditioning: PT to follow while inpatient. Needs SNF. Has been approved at [facility], however accepting MD out of town this weekend. Metabolic alkalosis: Trend labs. Lasix held. Started on acetazolamide. Continue inpatient management. Jovan <Monalisa Hardin - Last Filed: 04/07/18 15:41>
--- NOTE | 2018-04-04 13:16 | PRG ---
DATE OF SERVICE: 04/04/2018 SUBJECTIVE: Remains very weak. OBJECTIVE: VITAL SIGNS: She is afebrile, heart rate is 59, respiratory rate is 16, oximetry is 96 on 3 liters. LUNGS: Still remarkable for decreased breath sounds at her right base. HEART: Regular rhythm. ABDOMEN: Soft. Intake and output is negative 355. Bicarbonate has gone from 42-40. IMPRESSION: 1. Respiratory failure secondary to atrial fibrillation and diastolic dysfunction. 2. Status post thoracentesis revealing a transudative right effusion. 3. Metabolic alkalosis secondary to diuresis. 4. Status post cardioversion for atrial fibrillation. PLAN: Continue supportive care with eventual placement and rehabilitation. Her prognosis is still q uite guarded. I do believe she has a fall risk. Her anticoagulation should be used with caution in my opinion.
[2018-04-04] MEDS: Atorvastatin Calcium 10 MG TAB PO SCH (20:57)
[2018-04-05] MEDS: PROVENTIL INHALER 6.7 G (200 INHALATIONS) INH SCH ×6 (03:46→23:05)
--- NOTE | 2018-04-05 07:08 | PDOC.FM ---
- Subjective Subjective: Patient is somewhat somnolent on exam this AM and having difficulty answering questions. Oriented to person and place but not time. Denies any complaints and appears comfortable and denies any SOB or chest pain. However, mental status and somnolence are concerning. - Objective MAR Reviewed: Yes Vital Signs & Weight: Vital Signs (12 hours) Temp Pulse Resp BP Pulse Ox 04/05/18 03:48 97.9 F 56 L 20 122/54 L 96 04/04/18 23:45 97.8 F 59 L 22 H 132/62 96 04/04/18 23:34 94 L 04/04/18 19:47 97.5 F L 86 22 H 105/55 L 95 04/04/18 19:31 94 L 04/04/18 19:30 94 L Weight Admit Weight 65.771 kg Weight 62.051 kg Most Recent Monitor Data Heart Rate from ECG 78 NIBP 132/68 NIBP BP-Mean 89 Respiration from ECG 30 SpO2 96 I&O: 04/04/18 04/05/18 04/06/18 06:59 06:59 06:59 Intake Total 720 480 Output Total 1075 500 Balance -355 -20 Result Diagrams: 04/01/18 04:39 04/05/18 06:46 Radiology: Repeat CXR done this AM significant for R-sided pleural effusion and smaller L- sided effusion. Phys Exam - Physical Examination Constitutional: NAD HEENT: sclera anicteric Neck: full ROM Respiratory: no wheezing R breath sounds significantly decreased compared to the L. Cardiovascular: RRR, no significant murmur Gastrointestinal: soft, non-tender, no distention, positive bowel sounds Neurological: non-focal, moves all 4 limbs Deviation from normal: Patient was somnolent but arousable to loud speech. AxO x2. Deviation from normal: erythematous and edematous site on L forearm from infiltrated IV. Nontender -: to palpation on exam. Dx/Plan (1) Metabolic alkalosis Code(s): E87.3 - ALKALOSIS Status: Acute (2) Thrombocytopenia Code(s): D69.6 - THROMBOCYTOPENIA, UNSPECIFIED Status: Acute (3) Recurrent pleural effusion on right Code(s): J90 - PLEURAL EFFUSION, NOT ELSEWHERE CLASSIFIED Status: Chronic (4) Acute respiratory failure with hypoxia Code(s): J96.01 - ACUTE RESPIRATORY FAILURE WITH HYPOXIA Status: Resolved (5) Encephalopathy Code(s): G93.40 - ENCEPHALOPATHY, UNSPECIFIED Status: Resolved (6) Hypokalemia Code(s): E87.6 - HYPOKALEMIA Status: Resolved (7) Atrial fibrillation Code(s): I48.91 - UNSPECIFIED ATRIAL FIBRILLATION Status: Acute (8) Atrial fibrillation with RVR Code(s): I48.91 - UNSPECIFIED ATRIAL FIBRILLATION Status: Acute (9) Community acquired pneumonia Code(s): J18.9 - PNEUMONIA, UNSPECIFIED ORGANISM Status: Acute (10) GERD (gastroesophageal reflux disease) Code(s): K21.9 - GASTRO-ESOPHAGEAL REFLUX DISEASE WITHOUT ESOPHAGITIS Status: Acute (11) Hyperglycemia Code(s): R73.9 - HYPERGLYCEMIA, UNSPECIFIED Status: Acute (12) Peripheral edema Code(s): R60.9 - EDEMA, UNSPECIFIED Status: Acute (13) Urinary tract infection Status: Acute (14) HTN (hypertension) Code(s): I10 - ESSENTIAL (PRIMARY) HYPERTENSION Status: Chronic (15) Hyperlipidemia Code(s): E78.5 - HYPERLIPIDEMIA, UNSPECIFIED Status: Chronic (16) Psoriasis Code(s): L40.9 - PSORIASIS, UNSPECIFIED Status: Chronic - Plan Plan: Plan: Metabolic Acidosis - Improved today. Bicarb down to ? this AM. - Most likely 2/2 loop diuretics. - Will continue to follow w/ QD BMPs. A-fib with RVR - Patient is s/p cardioversion with return to NSR. Rate is now controlled on PO amiodarone, metoprolol, and digoxin - Cardiology consulted. Appreciate recommendations regarding dc timing, meds, and follow up. Acute hypoxic respiratory failure, resolved - O2 sats on 96% on 3 L overnight. - Repeat ABG this AM which was significant for a significant hypercapnea w/ a PCO2 of 96 but pH was 7.3. Bicarb was also elevated at 47.8. - CXR this AM significant for B/L effusions R>L. - Dr. Fine on the case, appreciated recommendations. - Will consider lasix PRN given alkalosis. - s/p successful thoracentesis on 03/30 removing 1L. Repeat thoracentesis today removing just over 1L of clear serous fluid. - Placed on BiPap and moved to CCU. Will continue to monitor closely today. Will attempt to wean off of BiPAp as tolerated since fluid was removed again. Recurrent pleural effusion on right with associated suspected pneumonia - s/p thoracentesis x2, fluid appears to be transudative and thus like associated with dCHF. UTI - resolved Thrombocytopenia - improved Hypokalemia, resolved - Will continue to monitor w/ QD BMPs. Encephalopathy, resolved - Likely 2/2 to respiratory failure and sedation HTN - Current pressures are not elevated and often low. Will restart meds as tolerated by patient. Psoriasis - Holding home methotrexate. Will restart upon d/c. GERD - Will continue Protonix PO. HLD - Will continue home Simvastatin. Disposition: Will continue to monitor closely in CCU today. Will go to [facility] SNF upon discharge.
[2018-04-05 07:11] LABS: BUN (Urea Nitrogen) 17 mg/dL (9.8-20.1); Calc. Creatinine Clearance 58 mL/min (70-130); Calcium 8.6 mg/dL (7.8-10.44); Estimated GFR-MDRD 76; Glucose 101 mg/dL (83-110)
[2018-04-05 07:20] LABS: Anion Gap 14 mmol/L (10-20); Carbon Dioxide 40 mmol/L (23-31); Chloride 85 mmol/L (98-107); Potassium 4.1 mmol/L (3.5-5.1); Sodium 135 mmol/L (136-145)
[2018-04-05 08:42] LABS: pH, Arterial 7.32 (7.35-7.45)
[2018-04-05 08:44] LABS: Actual Bicarbonate (HCO3a) 47.8 mEq/L (22-28); CO2 Tension 96.1 mmHg (35.0-45.0); O2 Tension (PaO2) 66.9 mmHg (> 60.0)
[2018-04-05 08:45] LABS: Base Excess (BEa) 17.2 mEq/L (-2.0 to +3.0); Hemoglobin (Hb) 12.5 g/dL (12.0-16.0)
[2018-04-05 08:46] LABS: Calcium, Ionized 1.15 mmol/L (1.12-1.30); Carboxyhemoglobin (COHb) 0.9 gm% (0.0-3.0); Potassium - ABG Lab 3.88 mmol/L (3.70-5.30)
[2018-04-05 08:47] LABS: ALV-art Gradient 41.135 (0-20); Analyzer IN Cardio OR; Puncture Site RBA
--- NOTE | 2018-04-05 08:54 | RAD ---
CHEST 1 VIEW: HISTORY: Dyspnea. COMPARISON: 03/31/2018. FINDINGS: Cardiac silhouette is now more obscured by bilateral pleural fluid, right greater than left. Pulmona ry vasculature is engorged. Rightward rotation of the patient. Old left shoulder fracture. IMPRESSION: Increasing pulmonary vascular congestion and bilateral pleural fluid, right greater than left. POS: [facility]
[2018-04-05] MEDS ORDERED: Lidocaine 1% (PF) 30 ML VIAL ONE ×2 (09:24→09:25)
--- NOTE | 2018-04-05 09:59 | PRG ---
DATE OF SERVICE: 04/05/2018 Thirty-five minutes critical care time. SUBJECTIVE: Ms. Laboy was found to be in respiratory distress this morning. The residents checked a blood gas and she demonstrated severe hypercapnia. Her x-ray shows recurrence of the large right p leural effusion. She has been brought back to the CCU and placed on BiPAP therapy. She told me she was willing to go through a repeat thoracentesis procedure. OBJECTIVE: VITAL SIGNS: Her temperature is 97.9, pulse 59, respirations 20, O2 saturation was 93% on 3 liters. Intake for the last 24 hours 480, output 500. HEENT: Unremarkable. NECK: No JVD. LUNGS: Almost absent breath sounds in the right, clear on the left. CARDIAC: S1, S2 muffled. ABDOMEN: Soft, nontender. EXTREMITIES: No edema. IMAGING: Echocardiogram from 03/26/2018 was reviewed. The report indicates that the patient had ple ural effusion, normal LV systolic function, mitral regurgitation. Previous thoracentesis demonstrate d transudative fluid. LABORATORY DATA: Sodium 135, potassium 4.1, chloride 85, CO2 of 40, BUN 17, creatinine 0.7, glucose 101, pH 7.32, pCO2 96, pO2 of 67. ASSESSMENT: This patient has diastolic congestive heart failure with recurrent transudative pleural effusion. RECOMMENDATIONS: 1. BiPAP therapy. 2. Repeat thoracentesis - large volume. 3. The patient has been placed on Diamox for diuretic therapy. Unfortunately, she seems to be respo nding poorly to diuretics and may be in a situation that cannot be overcome with medical therapy or s urgical therapy. I would recommend palliative care get involved in this case as her prognosis seems poor.
[2018-04-05] MEDS: Polyethylene Glycol 3350 17 GM Packet PO SCH (10:34)
[2018-04-05] MEDS: Digoxin 0.125 MG TAB PO SCH (11:17)
[2018-04-05] MEDS: Amiodarone 200 MG TAB PO SCH ×2 (11:17→20:46)
--- NOTE | 2018-04-05 11:24 | RAD ---
CHEST 1 VIEW: HISTORY: Chest pain. Thoracentesis. COMPARISON: Earlier exam on the same date. FINDINGS: Cardiac silhouette magnified and enlarged. Now more visible with less right pleural fluid. Pulmonar y vasculature remains engorged. A small amount of left pleural fluid. Mediastinum is midline with a ortic calcification. IMPRESSION: Interval removal of right pleural fluid. No evidence of pneumothorax. POS: [facility]
[2018-04-05] MEDS: AcetaZOLAMIDE 250 MG TAB PO SCH ×2 (11:26→20:47)
[2018-04-05] MEDS: Apixaban 5 MG TAB PO SCH ×2 (11:26→20:48)
--- NOTE | 2018-04-05 14:56 | OP ---
PROCEDURE: Right thoracentesis. PREOPERATIVE DIAGNOSIS: Massive right pleural effusion. POSTOPERATIVE DIAGNOSIS: Massive right pleural effusion. ANESTHESIA: A 1% lidocaine without epinephrine. DESCRIPTION OF PROCEDURE: Informed consent was obtained from the patient. The patient was placed in the upright position. Ultrasound was used to locate the best place to tap the effusion, which was l aterally in the 4th-5th interspace. The entry site was scrubbed with chlorhexidine and draped steril janelle. A 1% lidocaine was used to anesthetize the site. A Aaao-C-Hwcefiip catheter was placed in the chest and 1200 mL of transudative-appearing pleural fluid was removed. The patient tolerated the pro cedure well.
--- NOTE | 2018-04-05 17:52 | PRG ---
DATE OF SERVICE: 04/05/2018 The patient is much better after thoracentesis. X-ray shows substantial improvement in the right ple ural effusion. She has been weaned off the BiPAP and is in no respiratory distress. Based on that, she can be moved back out to the floor on telemetry monitoring.
[2018-04-05] MEDS: Benzonatate 100 MG CAP PO PRN (20:48)
[2018-04-05] MEDS: Atorvastatin Calcium 10 MG TAB PO SCH (20:48)
[2018-04-06] MEDS: PROVENTIL INHALER 6.7 G (200 INHALATIONS) INH SCH ×6 (03:04→23:50)
[2018-04-06 05:33] LABS: BUN (Urea Nitrogen) 14 mg/dL (9.8-20.1); Calc. Creatinine Clearance 66 mL/min (70-130); Calcium 8.7 mg/dL (7.8-10.44); Estimated GFR-MDRD 89; Glucose 65 mg/dL (83-110)
[2018-04-06 05:42] LABS: Anion Gap 16 mmol/L (10-20); Carbon Dioxide 34 mmol/L (23-31); Chloride 93 mmol/L (98-107); Potassium 3.9 mmol/L (3.5-5.1); Sodium 139 mmol/L (136-145)
--- NOTE | 2018-04-06 05:47 | PDOC.FM ---
- Subjective Subjective: NAEO. Patient was weaned off of Bipap and transferred back to floor yesterday after 2nd thoracentesis since admission. Satted well on 2L NC overnight. Denies any SOB, chest pain, or N/V. Says she does not have an appetite. Is more alert this morning compared to yesterday but still takes time to answer some questions. AxO x 2 this AM to person and place not time. - Objective MAR Reviewed: Yes Vital Signs & Weight: Vital Signs (12 hours) Temp Pulse Resp BP Pulse Ox 04/06/18 04:10 98.3 F 63 19 130/58 L 98 04/06/18 03:04 94 L 04/05/18 23:05 94 L 04/05/18 20:30 99 04/05/18 18:35 63 24 H 94 L Weight Admit Weight 65.771 kg Weight 62.051 kg Most Recent Monitor Data Heart Rate from ECG 65 NIBP 126/25 NIBP BP-Mean 58 Respiration from ECG 23 SpO2 100 I&O: 04/04/18 04/05/18 04/06/18 06:59 06:59 06:59 Intake Total 720 480 0 Output Total 2106 160 3215 Balance - Result Diagrams: 04/01/18 04:39 04/06/18 04:24 Phys Exam - Physical Examination Constitutional: NAD HEENT: moist MMs, sclera anicteric Neck: supple, full ROM Respiratory: no wheezing, clear to auscultation bilateral Cardiovascular: RRR, no significant murmur Gastrointestinal: soft, non-tender, no distention, positive bowel sounds Musculoskeletal: no edema Neurological: non-focal, moves all 4 limbs Psychiatric: normal affect Skin: no rash, normal turgor, cap refill <2 seconds Dx/Plan (1) Metabolic alkalosis Code(s): E87.3 - ALKALOSIS Status: Acute (2) Thrombocytopenia Code(s): D69.6 - THROMBOCYTOPENIA, UNSPECIFIED Status: Acute (3) Recurrent pleural effusion on right Code(s): J90 - PLEURAL EFFUSION, NOT ELSEWHERE CLASSIFIED Status: Chronic (4) Acute respiratory failure with hypoxia Code(s): J96.01 - ACUTE RESPIRATORY FAILURE WITH HYPOXIA Status: Resolved (5) Encephalopathy Code(s): G93.40 - ENCEPHALOPATHY, UNSPECIFIED Status: Resolved (6) Hypokalemia Code(s): E87.6 - HYPOKALEMIA Status: Resolved (7) Atrial fibrillation Code(s): I48.91 - UNSPECIFIED ATRIAL FIBRILLATION Status: Acute (8) Atrial fibrillation with RVR Code(s): I48.91 - UNSPECIFIED ATRIAL FIBRILLATION Status: Resolved (9) Community acquired pneumonia Code(s): J18.9 - PNEUMONIA, UNSPECIFIED ORGANISM Status: Resolved (10) GERD (gastroesophageal reflux disease) Code(s): K21.9 - GASTRO-ESOPHAGEAL REFLUX DISEASE WITHOUT ESOPHAGITIS Status: Chronic (11) Hyperglycemia Code(s): R73.9 - HYPERGLYCEMIA, UNSPECIFIED Status: Resolved (12) Peripheral edema Code(s): R60.9 - EDEMA, UNSPECIFIED Status: Acute (13) Urinary tract infection Status: Resolved (14) HTN (hypertension) Code(s): I10 - ESSENTIAL (PRIMARY) HYPERTENSION Status: Chronic (15) Hyperlipidemia Code(s): E78.5 - HYPERLIPIDEMIA, UNSPECIFIED Status: Chronic (16) Psoriasis Code(s): L40.9 - PSORIASIS, UNSPECIFIED Status: Chronic - Plan Plan: Acute hypercapnic respiratory failure, improving - O2 sats on 94% on 2 L overnight. - s/p drainage of recurrent R pleural effusion yesterday. Moved to CCU and then back to the floor - Pulmonology on the case, appreciated recommendations. - Will consider lasix PRN given alkalosis. - Will attempt to wean off O2 as tolerated by patient as she is not on O2 at home. Recurrent pleural effusion on right with associated suspected pneumonia - s/p thoracentesis x2, fluid appears to be transudative and thus like associated with dCHF. Sever physical deconditioning 2/2 prolonged hospitalization: - PT/OT consulted on 03/31. Have been working with patient during the week but not this weekend. - Will ensure they continue to work with her next week in prep for d/c to SNF. - Will order nursing comminication and activity order for OOB to chair TID. - Will consider d/c mccarthy to encourage getting up and to prevent recurrent UTI. - Will consider adding ensure as dietary supplement since patient has poor PO intake. Metabolic Acidosis - Improved today. Bicarb down to 34 this AM. - Most likely 2/2 loop diuretics. Will use lasix only PRN and continue w/ metolazone for diuresis. - Will continue to follow w/ QD BMPs. A-fib with RVR, resolved - Patient is s/p cardioversion with return to NSR. Rate is now controlled on PO amiodarone. - Will continue eliquis for chronic a. fib. - Cardiology consulted. Appreciate recommendations regarding d/c timing, meds, and follow up. Encephalopathy, recurred yesterday but improving - Likely 2/2 to respiratory failure and hypercapnia yesterday from recurrent pleural effusion. HTN - Current pressures are not elevated and often low. Will restart meds as tolerated by patient. Psoriasis - Holding home methotrexate. Will restart upon d/c. GERD - Will continue Protonix PO. HLD - Will continue home Simvastatin. Hypokalemia, resolved - Will continue to monitor w/ QD BMPs. UTI - resolved Thrombocytopenia - improved Disposition: Will continue to monitor closely on the floor today. Will go to [facility] SNF upon discharge.
[2018-04-06] MEDS: Apixaban 5 MG TAB PO SCH ×2 (09:52→21:35)
[2018-04-06] MEDS: Amiodarone 200 MG TAB PO SCH ×2 (09:52→21:36)
[2018-04-06] MEDS: AcetaZOLAMIDE 250 MG TAB PO SCH ×2 (09:52→21:36)
[2018-04-06] MEDS: Polyethylene Glycol 3350 17 GM Packet PO SCH (09:53)
[2018-04-06] MEDS ORDERED: Spironolactone 25 MG TAB PO SCH (10:00)
--- NOTE | 2018-04-06 11:53 | PRG ---
DATE OF SERVICE: 04/06/2018 SUBJECTIVE: Patient says she is breathing better today. She actually does not talk very much. PHYSICAL EXAMINATION: VITAL SIGNS: Temperature 97.7, pulse 65, respirations 18, O2 sat 99% on 2 liters, blood pressure 123 /57. HEENT: Unremarkable. NECK: No JVD. CHEST: Clear anteriorly. CARDIAC: S1 and S2 regular. ABDOMEN: Soft. EXTREMITIES: No edema. LABORATORY DATA: Sodium 139, potassium 3.9, chloride 93, CO2 of 34, BUN 14, creatinine 0.6, glucose 65. ASSESSMENT: 1. Recurrent right-sided pleural effusion that is secondary to congestive heart failure. 2. Congestive heart failure. 3. Elderly age. RECOMMENDATIONS: I would strongly suggest pursuing palliative measures on this patient as this proce ss is likely to recur fairly quickly. Prognosis is extremely poor.
[2018-04-06] MEDS: Atorvastatin Calcium 10 MG TAB PO SCH (21:35)
[2018-04-07] MEDS: PROVENTIL INHALER 6.7 G (200 INHALATIONS) INH SCH ×6 (03:42→22:25)
--- NOTE | 2018-04-07 05:03 | PDOC.FM ---
- Subjective Subjective: This morning Ms. Laboy states that she is feeling well and is in no pain. She denies SOB. Denies N/V/D. Discussed long-term goals with her, she states it is important to live, be comfortable, and go to [facility]. Made her aware palliative care team will come by sometime today to further discuss goals of care. Discussed poor prognosis w/ recurrent pleural effusions. - Objective Vital Signs & Weight: Vital Signs (12 hours) Temp Pulse Resp BP BP Pulse Ox 04/07/18 03:42 94 L 04/07/18 03:38 97.4 F L 73 16 129/58 L 94 L 04/06/18 23:50 94 L 04/06/18 23:48 97.8 F 78 20 124/55 L 94 L 04/06/18 20:00 98 F 74 18 114/59 L 92 L 04/06/18 19:03 94 L 04/06/18 19:02 94 L Weight Admit Weight 65.771 kg Weight 63.503 kg Most Recent Monitor Data Heart Rate from ECG 65 NIBP 126/25 NIBP BP-Mean 58 Respiration from ECG 23 SpO2 100 I&O: 04/05/18 04/06/18 04/07/18 06:59 06:59 06:59 Intake Total 480 130 720 Output Total 500 2950 800 Balance -20 -2820 -80 Result Diagrams: 04/01/18 04:39 04/07/18 04:29 <Flako Boo - Last Filed: 04/07/18 08:24> - Objective Vital Signs & Weight: Vital Signs (12 hours) Temp Pulse Resp BP BP BP Pulse Ox 04/07/18 07:44 91 L 04/07/18 07:43 80 16 04/07/18 07:27 97.9 F 79 18 160/72 H 96 04/07/18 03:42 94 L 04/07/18 03:38 97.4 F L 73 16 129/58 L 94 L 04/06/18 23:50 94 L 04/06/18 23:48 97.8 F 78 20 124/55 L 94 L Weight Admit Weight 65.771 kg Weight 60.781 kg Most Recent Monitor Data Heart Rate from ECG 65 NIBP 126/25 NIBP BP-Mean 58 Respiration from ECG 23 SpO2 100 I&O: 04/06/18 04/07/18 04/08/18 06:59 06:59 06:59 Intake Total 130 960 Output Total 2950 800 Balance -2820 160 Result Diagrams: 04/07/18 04:29 04/07/18 04:29 <RubyTimothy R - Last Filed: 04/07/18 10:46> Phys Exam - Physical Examination Constitutional: NAD HEENT: PERRLA, moist MMs Neck: no nodes, full ROM diminished breath sounds at bases bilaterally Cardiovascular: RRR, no significant murmur Gastrointestinal: soft, non-tender, no distention, positive bowel sounds Musculoskeletal: no edema, pulses present Neurological: non-focal, moves all 4 limbs Psychiatric: normal affect Skin: no rash, cap refill <2 seconds <Flako Boo - Last Filed: 04/07/18 08:24> Dx/Plan (1) Metabolic alkalosis Code(s): E87.3 - ALKALOSIS Status: Acute (2) Thrombocytopenia Code(s): D69.6 - THROMBOCYTOPENIA, UNSPECIFIED Status: Acute (3) Recurrent pleural effusion on right Code(s): J90 - PLEURAL EFFUSION, NOT ELSEWHERE CLASSIFIED Status: Chronic (4) Acute respiratory failure with hypoxia Code(s): J96.01 - ACUTE RESPIRATORY FAILURE WITH HYPOXIA Status: Resolved (5) Encephalopathy Code(s): G93.40 - ENCEPHALOPATHY, UNSPECIFIED Status: Resolved (6) Hypokalemia Code(s): E87.6 - HYPOKALEMIA Status: Resolved (7) Atrial fibrillation Code(s): I48.91 - UNSPECIFIED ATRIAL FIBRILLATION Status: Acute (8) Peripheral edema Code(s): R60.9 - EDEMA, UNSPECIFIED Status: Acute (9) GERD (gastroesophageal reflux disease) Code(s): K21.9 - GASTRO-ESOPHAGEAL REFLUX DISEASE WITHOUT ESOPHAGITIS Status: Chronic (10) HTN (hypertension) Code(s): I10 - ESSENTIAL (PRIMARY) HYPERTENSION Status: Chronic (11) Hyperlipidemia Code(s): E78.5 - HYPERLIPIDEMIA, UNSPECIFIED Status: Chronic (12) Psoriasis Code(s): L40.9 - PSORIASIS, UNSPECIFIED Status: Chronic (13) Atrial fibrillation with RVR Code(s): I48.91 - UNSPECIFIED ATRIAL FIBRILLATION Status: Resolved (14) Community acquired pneumonia Code(s): J18.9 - PNEUMONIA, UNSPECIFIED ORGANISM Status: Resolved (15) Hyperglycemia Code(s): R73.9 - HYPERGLYCEMIA, UNSPECIFIED Status: Resolved (16) Urinary tract infection Status: Resolved - Plan Plan: Acute hypercapnic respiratory failure - unable to wean off of 1L, desats to 85% per nursing staff - s/p drainage of recurrent R pleural effusion 04/05 - Pulmonology on the case, appreciated recommendations. - Was not on home o2 prior to admission Urinary retention - failed voiding trial - will discuss Uro consult during rounds Recurrent pleural effusion on right with associated suspected pneumonia - s/p thoracentesis x2, fluid appears to be transudative and thus like associated with dCHF. - poor prognosis - palliative care team consulted, patient to consider goals of care Sever physical deconditioning 2/2 prolonged hospitalization: - PT/OT consulted on 03/31. - likely SNF on d/c Metabolic Acidosis - stable at 35 - continue w/ metolazone for diuresis. - trend A-fib with RVR, resolved - Patient is s/p cardioversion with return to NSR. Rate is now controlled on PO amiodarone. - Will continue eliquis for chronic a. fib. - Cardiology consulted. Appreciate recommendations regarding d/c timing, meds, and follow up. Encephalopathy, patient AxOx3 this AM - trend HTN - Current pressures are not elevated and often low. Will restart meds as tolerated by patient. Psoriasis - Holding home methotrexate. Will restart upon d/c. GERD - Will continue Protonix PO. HLD - Will continue home Simvastatin. Hypokalemia, resolved - Will continue to monitor w/ QD BMPs. UTI - resolved Thrombocytopenia - improved Disposition: Will continue to monitor closely on the floor today. Will go to [facility] SNF upon discharge. <Flako Boo - Last Filed: 04/07/18 08:24> Attending Addendum - Attending Addendum Date/Time: 04/07/18 7200 I personally evaluated the patient and discussed the management with Dr. Boo. I agree with the History, Examination, Assessment and Plan documented above with any addition or exceptions noted below. Patient reports breathing well this morning. She was admitted for respiratory failure 2/2 recurrent transudative effusion thought due to CHF. Pulmonology has performed 2 drainages and portends a poor prognosis. Cardiology on board and will inquire as to if further diuresis with possible Lasix would help prevent such significant effusions. Continue therapy, and await conversations with family and patient with Palliative care. Bicard level stable, not currently hypoxic on minimal O2 supplementation. <Timothy Beltran R - Last Filed: 04/07/18 10:46>
[2018-04-07 05:09] LABS: BUN (Urea Nitrogen) 12 mg/dL (9.8-20.1); Calc. Creatinine Clearance 66 mL/min (70-130); Calcium 8.8 mg/dL (7.8-10.44); Estimated GFR-MDRD 86; Glucose 86 mg/dL (83-110)
[2018-04-07 05:18] LABS: Anion Gap 13 mmol/L (10-20); Carbon Dioxide 35 mmol/L (23-31); Chloride 96 mmol/L (98-107); Potassium 3.6 mmol/L (3.5-5.1); Sodium 140 mmol/L (136-145)
--- NOTE | 2018-04-07 07:54 | RAD ---
PORTABLE CHEST: History: Follow up effusions. Comparison: 04-05-18 FINDINGS: Small bilateral effusions appear unchanged. There is cardiomegaly and vascular congestion. IMPRESSION: No significant interval change. POS: [facility]
[2018-04-07 08:46] LABS: #Eosinphils 0.1 thou/uL (0.0-0.7); #Lymphocytes 0.9 thou/uL (1.20-3.40); #Monocytes 0.6 thou/uL (0.11-0.59); #Neutrophils 3.6 thou/uL (1.40-6.50); %Basophils 0.6 % (0.0-1.0); %Eosinophils 1.7 % (0.0-10.0); %Lymphocytes 16.7 % (21.0-51.0); %Monocytes 11.4 % (0.0-10.0); %Neutrophils 69.6 % (42.0-75.0); Hemoglobin 11.6 g/dL (12.0-16.0); Mean Corpuscular HGB CONC 31.2 g/dL (32.0-36.0); Mean Corpuscular Hemoglobin 33.4 pg (27.0-31.0); Platelet Count 165 thou/uL (130-400); RBC Distribution Width 14.3 % (11.5-14.5); Red Blood Cell (RBC) Count 3.49 mill/uL (4.20-5.40); White Blood Cell (WBC) Count 5.2 thou/uL (4.8-10.8)
[2018-04-07] MEDS: Spironolactone 25 MG TAB PO SCH (08:52)
[2018-04-07] MEDS: AcetaZOLAMIDE 250 MG TAB PO SCH ×2 (08:52→20:38)
[2018-04-07] MEDS: Apixaban 5 MG TAB PO SCH ×2 (08:53→20:38)
[2018-04-07] MEDS: Amiodarone 200 MG TAB PO SCH ×2 (08:53→20:38)
[2018-04-07] MEDS: Polyethylene Glycol 3350 17 GM Packet PO SCH (08:53)
--- NOTE | 2018-04-07 19:11 | PRG ---
DATE OF SERVICE: 04/07/2018 SUBJECTIVE: Ms. Laboy underwent another thoracentesis over the weekend for respiratory distress. OBJECTIVE: She is afebrile now, heart rate 77, respiratory rate is 18, oximetry is 94 on 1 liter. S he still has slight decreased breath sounds at her right base. LABORATORY DATA: Chest radiograph done today, it is unchanged from 2 days ago. IMPRESSION: Transudative pleural effusion, recurrent secondary to atrial fibrillation and diastolic dysfunction. The fact that she developed respiratory distress while in the hospital is worrisome. Carie gutierrez will continue to follow.
[2018-04-07] MEDS: Atorvastatin Calcium 10 MG TAB PO SCH (20:38)
[2018-04-08] MEDS: PROVENTIL INHALER 6.7 G (200 INHALATIONS) INH SCH ×4 (02:31→14:10)
[2018-04-08 05:20] LABS: Anion Gap 8 mmol/L (10-20); BUN (Urea Nitrogen) 10 mg/dL (9.8-20.1); Calc. Creatinine Clearance 60 mL/min (70-130); Calcium 8.7 mg/dL (7.8-10.44); Carbon Dioxide 35 mmol/L (23-31); Chloride 101 mmol/L (98-107); Estimated GFR-MDRD 81; Glucose 82 mg/dL (83-110); Potassium 4.2 mmol/L (3.5-5.1); Sodium 140 mmol/L (136-145)
--- NOTE | 2018-04-08 07:58 | PDOC.EVN ---
Attending Addendum - Attending Addendum Date/Time: 04/08/18 0756 I personally evaluated the patient and discussed the management with Dr. Boo. I agree with the History, Examination, Assessment and Plan documented in his progress note with any addition or exceptions noted below. Patient denies complaints this morning and reports she has no difficulty breathing. She is being treated for recurrent transudative pleural effusion that has had to be drained x2. Poor prognosis is anticipated. Diuretic regimen is being modulated by cardiology. Palliative care has been consulted and we will be working with them and patient/family to develop refining still operator plan. Will need to approve patient for outpatient O2 therapy as she will likely need this chronically due to her recurrence of fluid. Work on placement at this time as the majority of her conditions are stable with the exception of the recurrent pleural effusion.
--- NOTE | 2018-04-08 08:21 | PDOC.FM ---
- Subjective Subjective: THis mornign patient denies SOB, pain, N/V/D. She states she would like to go to rehab if possible. She was able to sit up in the chair yesterday. - Objective Vital Signs & Weight: Vital Signs (12 hours) Temp Pulse Resp BP Pulse Ox 04/08/18 07:37 96 04/08/18 07:36 74 20 04/08/18 04:00 97.7 F 77 20 129/57 L 98 04/08/18 02:31 77 14 94 L 04/07/18 22:25 80 14 94 L Weight Admit Weight 65.771 kg Weight 62.142 kg Most Recent Monitor Data Heart Rate from ECG 65 NIBP 126/25 NIBP BP-Mean 58 Respiration from ECG 23 SpO2 100 I&O: 04/07/18 04/08/18 04/09/18 06:59 06:59 06:59 Intake Total 960 1200 Output Total 800 2350 Balance 160 -1150 Result Diagrams: 04/07/18 04:29 04/08/18 04:26 Phys Exam - Physical Examination Constitutional: NAD HEENT: PERRLA, moist MMs Neck: no nodes, full ROM diminished breath sounds on R lower quadrant Cardiovascular: RRR, no significant murmur Gastrointestinal: soft, non-tender Musculoskeletal: pulses present Neurological: non-focal, moves all 4 limbs Skin: no rash, cap refill <2 seconds Dx/Plan (1) Metabolic alkalosis Code(s): E87.3 - ALKALOSIS Status: Acute (2) Thrombocytopenia Code(s): D69.6 - THROMBOCYTOPENIA, UNSPECIFIED Status: Acute (3) Recurrent pleural effusion on right Code(s): J90 - PLEURAL EFFUSION, NOT ELSEWHERE CLASSIFIED Status: Chronic (4) Acute respiratory failure with hypoxia Code(s): J96.01 - ACUTE RESPIRATORY FAILURE WITH HYPOXIA Status: Resolved (5) Encephalopathy Code(s): G93.40 - ENCEPHALOPATHY, UNSPECIFIED Status: Resolved (6) Hypokalemia Code(s): E87.6 - HYPOKALEMIA Status: Resolved (7) Atrial fibrillation Code(s): I48.91 - UNSPECIFIED ATRIAL FIBRILLATION Status: Acute (8) Peripheral edema Code(s): R60.9 - EDEMA, UNSPECIFIED Status: Acute (9) GERD (gastroesophageal reflux disease) Code(s): K21.9 - GASTRO-ESOPHAGEAL REFLUX DISEASE WITHOUT ESOPHAGITIS Status: Chronic (10) HTN (hypertension) Code(s): I10 - ESSENTIAL (PRIMARY) HYPERTENSION Status: Chronic (11) Hyperlipidemia Code(s): E78.5 - HYPERLIPIDEMIA, UNSPECIFIED Status: Chronic (12) Psoriasis Code(s): L40.9 - PSORIASIS, UNSPECIFIED Status: Chronic (13) Atrial fibrillation with RVR Code(s): I48.91 - UNSPECIFIED ATRIAL FIBRILLATION Status: Resolved (14) Community acquired pneumonia Code(s): J18.9 - PNEUMONIA, UNSPECIFIED ORGANISM Status: Resolved (15) Hyperglycemia Code(s): R73.9 - HYPERGLYCEMIA, UNSPECIFIED Status: Resolved (16) Urinary tract infection Status: Resolved - Plan Plan: Placement - currently patient would prefer to go to rehab rather than hospice - sister who is MPOA is thinking about everything - Will order rehab screen, not sure patient would qualify for rehab - appreciative palliative, pulm input - anticipate SNF vs Hospice Acute hypercapnic respiratory failure - unable to wean off of 1L, desats to 85% per nursing staff - s/p drainage of recurrent R pleural effusion 04/05, diminished breath sounds on the R - CXR yesterday shows no interval changes - Pulmonology on the case, appreciated recommendations. - Was not on home o2 prior to admission Urinary retention - failed voiding trial - will discuss Uro consult pending placement decision Recurrent pleural effusion on right with associated suspected pneumonia - s/p thoracentesis x2, fluid appears to be transudative and thus like associated with dCHF. - poor prognosis - palliative care team consulted, patient to consider goals of care Sever physical deconditioning 2/2 prolonged hospitalization: - PT/OT consulted on 03/31. - likely SNF on d/c Metabolic Acidosis - stable at 35 - continue w/ metolazone for diuresis. - trend A-fib with RVR, resolved - Patient is s/p cardioversion with return to NSR. Rate is now controlled on PO amiodarone. - Will continue eliquis for chronic a. fib. - Cardiology consulted. Appreciate recommendations regarding d/c timing, meds, and follow up. Encephalopathy, patient AxOx3 this AM - trend HTN - Current pressures are not elevated and often low. Will restart meds as tolerated by patient. Psoriasis - Holding home methotrexate. Will restart upon d/c. GERD - Will continue Protonix PO. HLD - Will continue home Simvastatin. Hypokalemia, resolved - Will continue to monitor w/ QD BMPs. UTI - resolved Thrombocytopenia - improved Disposition: Working on placement
[2018-04-08] MEDS: Amiodarone 200 MG TAB PO SCH (09:22)
[2018-04-08] MEDS: AcetaZOLAMIDE 250 MG TAB PO SCH (09:22)
[2018-04-08] MEDS: Apixaban 5 MG TAB PO SCH (09:22)
[2018-04-08] MEDS: Spironolactone 25 MG TAB PO SCH (09:22)
[2018-04-08] MEDS: Polyethylene Glycol 3350 17 GM Packet PO SCH (09:23)
--- NOTE | 2018-04-08 09:37 | PDOC.EVN ---
Event Note - Event Note Event Note: Spoke to on-call Urologist Recommends Flomax, Garcia, Follow-up outpatient if leaving SNF or rehab doc can refer if not leaving SNF
[2018-04-08 11:54] VITALS: BP 123/54; TEMP 97.9
[2018-04-08 13:38] VITALS: BMI 26.7
--- NOTE | 2018-04-08 16:16 | PRG ---
DATE OF SERVICE: 04/08/2018. SUBJECTIVE: Berenice Laboy continues to have most of the day sleeping. OBJECTIVE: VITALS: She is afebrile, heart rate 80, respiratory rate 16, oximetry is 92% on 2 liters. Intake and output is negative 1150 today. PULMONARY: He still has decreased breath sounds in the right base, but nothing like before. HEART: Regular rhythm. ABDOMEN: Soft. IMPRESSION: Chronic right pleural effusion secondary to atrial fibrillation and diastolic dysfunctio n. She is in and out of atrial fibrillation and likely will be the rest of her life. She is tentatively scheduled to go into a rehab environment. There is no new lab today other than el ectrolytes. Her bicarbonate is 35 down from 42. Her Diamox can be continued. There is some tolerance that develops to Diamox with time after about 3 days. Intake and output will need to be monitored in the rehab environment as well. She is on a tiny dose of Aldactone at this time. She is not on Lasix. She will get back on a low dose of Lasix. She is stable to go to rehabilitation, will need to be watched closely.
[2018-04-09] MEDS ORDERED: Tamsulosin HCl 0.4 MG CAP PO SCH (09:00)
--- NOTE | 2018-04-09 14:36 | DIS-2 ---
DATE OF ADMISSION: 03/24/2018 DATE OF DISCHARGE: 04/08/2018 RESIDENT: Flako Boo M.D. ADMITTING ATTENDING: Ivonne García M.D. DISCHARGE ATTENDING: Timothy Beltran M.D. CONSULTATIONS: Pulmonology, Cardiology, PT, OT. PROCEDURES: See HPI. PRIMARY DIAGNOSIS: Acute hypercapnic respiratory failure. SECONDARY DIAGNOSES: Urinary retention, recurrent pleural effusion associated with congestive heart failure, severe deconditioning, atrial fibrillation with rapid ventricular response, encephalopathy, hypertension, psoriasis, gastroesophageal reflux disease, hyperlipidemia, hypokalemia, urinary tract infection, thrombocytopenia. DISCHARGE MEDICATIONS: Acetazolamide 250 mg daily, amiodarone 400 mg b.i.d., Eliquis 5 mg b.i.d., Aldactone 25 mg daily, Flomax 0.4 mg daily, simvastatin 20 mg daily, methotrexate once weekly, losartan and hydrochlorothiazide 25 mg every day, folic acid, Premarin cream, vitamin D, albuterol, apixaban, Colace, DuoNeb, MiraLax, Lasix, metoprolol. HISTORY OF PRESENT ILLNESS AND HOSPITAL COURSE: The patient was initially admitted to the hospital for atrial fibrillation with RVR. The patient started on amiodarone drip with good control of her ventricular rate. On 03/26/2018 had a code green called due to respiratory distress. The Patient had a cardioversion for atrial fibrillation with RVR earlier in the day. The patient was transferred back to the room. She became increasingly confused and essentially unresponsive. The patient was then transferred immediately to the ICU and intubated. The patient was suspected to have mucus plug, she could not clear at home. The patient was intubated until 03/29/2018. The patient was then extubated and transitioned to BiPAP until 03/30/2018. She underwent thoracentesis on 03/30/2018 and got 1 liter of fluid out. She would then undergo thoracentesis again on 04/05/2018 removing about a liter of fluid. The patient had multiple electrolyte abnormalities as well as thrombocytopenia during her hospitalization. She had very fragile fluid balance. Long discussions were had regarding goals of care with the patient and her sister-in- law, Ronit, who is the MPOA. The patient currently does not want to go to hospice, but she is DNR/DNI. Specialists have different opinions on her long- term outlook. Some are very guarded secondary to her recurrent effusions; although, think that with proper management of her fluids, she may sustain a quality of life acceptable to her for a decent amount of time. The patient had some urinary retention and so will need to follow up with Urology for a long- term Garcia management. The patient was severely deconditioned and will need continued PT, OT consultation. The patient had atrial fibrillation with RVR and will need to continue to follow up with Cardiology. DISPOSITION: Guarded. DISCHARGE INSTRUCTIONS: 1. Location: custodial. 2. Diet: Regular. 3. Activity: As tolerated. 4. Followup: Dr. Ivonne García, Pulmonology, Cardiology, Urology (Dr. Buchanan). The patient will need to be monitored for reoccurrence of right pleural effusion. This would need to get drained again. Discussed placement of a pigtail catheter with Pulmonology, states that this would not be helpful, but rather fluid management is the best way to manage this. ZOILA
== END 2018-04-08 17:16 | DRG 871 ==
LOC: ERS 19:58 → 2SE 22:55 → CCU 03-26 12:12 → 2SE 03-31 08:57 → 2NO 03-31 20:07 → CCU 04-05 09:05 → 2NO 04-05 20:19
PROVIDERS: ADMIT Family Medicine; ATTEND Family Medicine
PROC: B246ZZ4 Ultrasonography of Right and Left Heart, Transesophageal (ICD-10-PCS; 2018-03-26)
PROC: 5A1945Z Respiratory Ventilation, 24-96 Consecutive Hours (ICD-10-PCS; 2018-03-26)
PROC: 0BH17EZ Insertion of Endotracheal Airway into Trachea, Via Natural or Artificial Opening (ICD-10-PCS; 2018-03-26)
PROC: 5A2204Z Restoration of Cardiac Rhythm, Single (ICD-10-PCS; 2018-03-26)
PROC: 0W993ZX Drainage of Right Pleural Cavity, Percutaneous Approach, Diagnostic (ICD-10-PCS; principal; 2018-03-30)
PROC: 0W993ZZ Drainage of Right Pleural Cavity, Percutaneous Approach (ICD-10-PCS; 2018-04-05)
DX: A41.9 Sepsis, unspecified organism (principal); J18.9 Pneumonia, unspecified organism; J96.01 Acute respiratory failure with hypoxia; I50.33 Acute on chronic diastolic (congestive) heart failure; J90 Pleural effusion, not elsewhere classified; N39.0 Urinary tract infection, site not specified; G93.40 Encephalopathy, unspecified; E87.3 Alkalosis; I08.1 Rheumatic disorders of both mitral and tricuspid valves; K21.9 Gastro-esophageal reflux disease without esophagitis; E78.5 Hyperlipidemia, unspecified; L40.9 Psoriasis, unspecified; I48.2 Chronic atrial fibrillation; D69.6 Thrombocytopenia, unspecified; K59.00 Constipation, unspecified; R73.9 Hyperglycemia, unspecified; R60.9 Edema, unspecified; E87.6 Hypokalemia; B96.20 Unspecified Escherichia coli [E. coli] as the cause of diseases classified elsewhere; I11.0 Hypertensive heart disease with heart failure; R33.9 Retention of urine, unspecified; T17.990A Other foreign object in respiratory tract, part unspecified in causing asphyxiation, initial encounter
CPT/HCPCS: 36415; 36416; 70450; 71045; 80048; 80053; 81003; 81015; 82150; 82436; 82805; 82945; 83615; 83735; 84133; 84157; 84300; 84484; 85007; 85025; 85027; 85060; 87070; 87205; 88112; 88305; 89051; 92960; 93005; 93010; 93312; 94002; 94003; 94640; 94660; 96360; A4216; C9113; G8978-GP-CM; G8979-GP-CK; G8987-GO-CL; G8988-GO-CJ; J0131; J0282; J0456; J0696; J1160; J1650; J1940; J2001; J2060; J2250; J2270; J2543; J2704; J3010; J3370; J3475; J3480; J7050; J7070; J7620

== ENCOUNTER 2018-04-17 20:37 | Inpatient (IN) | payer MEDICARE, OTHER ==
[2018-04-17] MEDS ORDERED: Ondansetron HCl/PF 4 MG/2 ML Vial ONE (20:58)
[2018-04-17] MEDS ORDERED: Water For Injection,Sterile 20 ML ONE (20:59)
[2018-04-17] MEDS ORDERED: Sodium Bicarb 50 MEQ/50 ML Abboject 8.4% SYRINGE ONE (21:08)
[2018-04-17 21:21] LABS: Bilirubin Negative (Negative); Blood, Urine Negative (Negative); Clarity CLEAR (Clear); Glucose, Urine (Dipstick) Negative (Negative); Leukocyte Small (Negative); Nitrite Negative (Negative); Protein, Urine (Dipstick) Negative (Neg-Trace); Specific Gravity, Urine 1.014 (1.002-1.036); Urobilinogen 0.2 mg/dL (0.2-1.0)
[2018-04-17 21:26] LABS: Bacteria/HPF None Seen HPF (None Seen); Hyaline Casts/LPF 0-3 HYALINE CAST LPF (0-3 Hyaline); Pathc Cast-AUWi Flag 0.72 (0-2.49); RBC/HPF 0-3 HPF (0-3); Squamous Epithelial 0-3 HPF (0-3)
--- NOTE | 2018-04-17 21:41 | RAD ---
CHEST ONE VIEW: 04/17/18 HISTORY: Bradycardia. COMPARISON: 04/07/18. FINDINGS: The cardiac silhouette is magnified, enlarged, and partially obscured by right pleural fluid. There i s rightward shift of the mediastinum. Pulmonary vasculature is engorged. Calcification throughout the arterial structures. Left lung is well inflated. No evidence of pneumothorax. Old left humeral neck fracture. IMPRESSION: Right basilar atelectasis with large right pleural fluid. Cause is not evident. Pulmonary vascular congestion. Atherosclerosis. POS: [facility]
[2018-04-17] MEDS ORDERED: cefTRIAXone\\ROCEPHIN 2 GM VIAL ONE (22:31)
--- NOTE | 2018-04-17 22:34 | CT ---
CT HEAD NONCONTRAST: 04/17/18 HISTORY: Seizure. COMPARISON: 03/25/18. FINDINGS: There is no evidence of acute intracranial hemorrhage or infarct. Chronic ischemic small vessel disea se is stable. There is no mass effect or shift of midline structures. Visualized paranasal sinuses re main well aerated. IMPRESSION: No acute intracranial abnormalities are demonstrated. POS: [facility]
--- NOTE | 2018-04-17 22:37 | CT ---
CT CHEST NONCONTRAST: 04/17/18 HISTORY: Tachycardia. Pneumonia. COMPARISON: 03/24/18. FINDINGS: Large amount of right pleural fluid. Small amount of left pleural fluid. Atelectasis at the lung base s, right greater than left, with slight rightward shift of the mediastinum. Central airways are paten t. No evidence of pneumothorax. Calcifications throughout the arterial structures. Lack of contrast limits evaluation of the soft tis sues. No bulky adenopathy. Within a partially visualized upper abdomen, the lobular low density lesio n within the posterior segment right liver lobe is similar in appearance. IMPRESSION: Increasing bilateral pleural fluid, right greater than left, with atelectasis at each lung base. Caus e is not evident. Atherosclerosis. POS: ALINE
[2018-04-17 22:44] LABS: #Lymphocytes 1.4 thou/uL (1.20-3.40); #Monocytes 0.9 thou/uL (0.11-0.59); #Neutrophils 7.8 thou/uL (1.40-6.50); %Basophils 0.3 % (0.0-1.0); %Eosinophils 0.4 % (0.0-10.0); %Lymphocytes 13.7 % (21.0-51.0); %Monocytes 8.6 % (0.0-10.0); Hemoglobin 9.7 g/dL (12.0-16.0); Mean Corpuscular HGB CONC 32.1 g/dL (32.0-36.0); Mean Corpuscular Hemoglobin 33.7 pg (27.0-31.0); Mean Platelet Volume 9.7 fL (7.4-10.4); Platelet Count 110 thou/uL (130-400); RBC Distribution Width 14.7 % (11.5-14.5); Red Blood Cell (RBC) Count 2.86 mill/uL (4.20-5.40); White Blood Cell (WBC) Count 10.1 thou/uL (4.8-10.8)
[2018-04-17 22:50] LABS: INR-International Normal Ratio 1.6; PTT 36.3 SEC (22.9-36.1); Prothrombin Time 19.1 SEC (12.0-14.7)
[2018-04-17 23:04] LABS: ALT (SGPT) 254 U/L (8-55); AST (SGOT) 215 U/L (5-34); Albumin 3.6 g/dL (3.4-4.8); Alkaline Phosphatase 73 U/L (40-150); Anion Gap 12 mmol/L (10-20); BUN (Urea Nitrogen) 52 mg/dL (9.8-20.1); Bilirubin, Total 0.6 mg/dL (0.2-1.2); CK (CPK) 39 U/L (29-168); Calc. Creatinine Clearance 0 mL/min (70-130); Calcium 8.4 mg/dL (7.8-10.44); Carbon Dioxide 31 mmol/L (23-31); Chloride 102 mmol/L (98-107); Estimated GFR-MDRD 27; Globulin 2.3 g/dL (2.4-3.5); Glucose 129 mg/dL (83-110); Lipase 24 U/L (8-78); Magnesium 1.8 mg/dL (1.6-2.6); Potassium 4.9 mmol/L (3.5-5.1); Protein, Total 5.9 g/dL (6.0-8.3); Sodium 140 mmol/L (136-145)
[2018-04-17 23:08] LABS: CKMB 2.4 ng/mL (0-6.6); Troponin I 0.042 ng/mL (< 0.028)
--- NOTE | 2018-04-17 23:33 | PDOC.FPRHP ---
Addendum entered and electronically signed by Gardenia Freeman MD 04/18/18 02:57: #encephalopathy- -will also consider a vq scan in the am if concerned for a PE. #SHAISTA on CKD -gentle fluids but will carefully monitor as pt has b/l pl effusions and an elevated bnp. #elevated troponins -will trend #b/l pleural effusions -gave 40mg IV of lasix; strict I/O's #elevated tsh -ordered t4,t3 #anemia -macrocytic -ordered b12 and folate Original Note: - History of Present Illness Chief Complaint: bradycardia History of Present Illness: 83 yo f with pmhx of htn, hld presents with bradycardia from [place] ER. This am pt was at her baseline state of health, then this afternoon at the [facility], staff noticed her left hand shaking, and thought she was having a seizure. Called PCP who considered it being a tremor. She then started to have full body shaking and was not responsive. Nursing staff called EMS and staff at [facility] reported normal vitals to the PCP. However, shortly after when EMS arrived, they found a HR of 25 and nonpalpable blood pressure. Upon arrival to ER in [place], HR 25, epinephrine drip started and heart was externally paced. Pt was life-flighted here to ER. Here in the ER pt was on a nonrebreather saturating in the upper 90s. GCS10. Unable to get a hx. Central line placed. - Allergies/Adverse Reactions Allergies Allergy/AdvReac Type Severity Reaction Status Date / Time No Known Drug Allergies Allergy Verified 03/25/18 03:44 - Home Medications Medication Instructions Recorded Confirmed Type Albuterol Sulfate [Proair HFA] 2 puff INH Q4HR 01/08/17 01/08/17 History Cholecalciferol (Vitamin D3) 5,000 units PO Q7DAYS 01/08/17 01/08/17 History [Vitamin D] Clotrimazole 1% Cream [Lotrimin 1% 1 applic TOP QPM 01/08/17 01/08/17 History Cream] Estrogens, Conjugated [Premarin 1 applic VAG Q7DAYS 01/08/17 03/25/18 History Cream] Folic Acid [Folvite] 1 mg PO QPM 01/08/17 03/25/18 History Losartan/Hydrochlorothiazide 25 mg PO QAM 01/08/17 03/25/18 History [Losartan-Hctz 100-25 mg Tab] Methotrexate Sodium 2.5 mg PO Q7D 01/08/17 03/25/18 History Simvastatin [Zocor] 20 mg PO QPM 01/08/17 03/25/18 History Apixaban [Eliquis] 5 mg PO BID #60 tab 01/18/17 03/25/18 Rx Bisacodyl [Dulcolax] 10 mg CO DAILYPRN PRN #0 supp 01/18/17 Rx Docusate [Colace] 100 mg PO BID cap 01/18/17 Rx Ipratropium/Albuterol Sulfate 3 ml NEB Q1LE-ZG #60 neb 01/18/17 Rx [DuoNeb] Polyethylene Glycol 3350 [Miralax] 17 gm PO DAILY pk 01/18/17 Rx Benzonatate 1 tab PO BID 03/25/18 03/25/18 History Furosemide 1 tab PO DAILY 03/25/18 03/25/18 History Metoprolol Succinate [Toprol XL] 100 mg PO BID 03/25/18 03/25/18 History hydrOXYzine HCl 2 tab PO DAILY 03/25/18 03/25/18 History Esomeprazole Magnesium [NexIUM] 40 mg PO DAILY 04/06/18 04/06/18 History AcetaZOLAMIDE [Diamox] 250 mg PO DAILY 30 Days #30 tab 04/08/18 Rx Amiodarone [Cordarone] 400 mg PO BID 30 Days #60 tab 04/08/18 Rx Apixaban [Eliquis] 5 mg PO BID 30 Days #60 tab 04/08/18 Rx Spironolactone [Aldactone] 25 mg PO QAM-WM 30 Days #30 tab 04/08/18 Rx Tamsulosin HCl [Flomax] 0.4 mg PO DAILY 30 Days #30 cap 04/08/18 Rx - History Obtained from chart review in centricity as pt is unresponsive with GCS 10 (4,2, 4) PMHx: HTN, HLD, Afib, Anemia, Psoriasis, GERD PSHx: Left mastectomy, tonsillectomy, cataract surgery FHx: father-ckd Social: resident at [facility], does not have children, POA is [id number] Sindi Laboy ([phone]) - Review of Systems ROS unobtainable: due to mental status (altered with GCS 10) - Vital signs BP: 115/64 HR: 71 RR: 18 Tmax:98.1 Pox: 100% on nonrebreather Wt: 67kg - Physical Exam Constitutional: NAD, other (gcs 10) HEENT: normocephalic and atraumatic, other (pupils not reactive to light) Neck: supple, trachea midline Heart: RRR (transcutaneously paced) Lungs: CTAB, no wheezing Abdomen: soft, non-tender Neurological: other (pupils not reactive) Skin: no rash/lesions Additional comment: GCS 10 FMR H&P: Results - Labs Result Diagrams: 04/17/18 22:31 04/17/18 22:31 Lab results: WBC 10.1 thou/uL (4.8-10.8) 04/17/18 22:31 Hgb 9.7 g/dL (12.0-16.0) L 04/17/18 22:31 Hct 30.0 % (36.0-47.0) L 04/17/18 22:31 MCV 105.0 fL (78.0-98.0) H 04/17/18 22:31 Plt Count 110 thou/uL (130-400) L 04/17/18 22:31 Neutrophils % 77.0 % (42.0-75.0) H 04/17/18 22:31 Sodium 140 mmol/L (136-145) 04/17/18 22:31 Potassium 4.9 mmol/L (3.5-5.1) 04/17/18 22:31 Chloride 102 mmol/L (98-107) 04/17/18 22:31 Carbon Dioxide 31 mmol/L (23-31) 04/17/18 22:31 BUN 52 mg/dL (9.8-20.1) H 04/17/18 22:31 Creatinine 1.78 mg/dL (0.6-1.1) H 04/17/18 22:31 Glucose 129 mg/dL (83-110) H 04/17/18 22:31 Calcium 8.4 mg/dL (7.8-10.44) 04/17/18 22:31 Total Bilirubin 0.6 mg/dL (0.2-1.2) 04/17/18 22:31 AST 215 U/L (5-34) H 04/17/18 22:31 ALT 254 U/L (8-55) H 04/17/18 22:31 Alkaline Phosphatase 73 U/L (40-150) 04/17/18 22:31 Creatine Kinase 39 U/L (29-168) 04/17/18 22:31 CK-MB (CK-2) 2.4 ng/mL (0-6.6) 04/17/18 22:31 B-Natriuretic Peptide 844.5 pg/mL (0-100) H 04/17/18 22:31 Serum Total Protein 5.9 g/dL (6.0-8.3) L 04/17/18 22:31 Albumin 3.6 g/dL (3.4-4.8) 04/17/18 22: Lipase 24 U/L (8-78) 04/17/18 22:31 Urine Ketones Negative mg/dL (Negative) 04/17/18 21:07 Urine Blood Negative (Negative) 04/17/18 21:07 Urine Nitrite Negative (Negative) 04/17/18 21:07 Ur Leukocyte Esterase Small (Negative) H 04/17/18 21:07 Urine RBC 0-3 HPF (0-3) 04/17/18 21:07 Urine WBC 4-6 HPF (0-3) H 04/17/18 21:07 Ur Squamous Epith Cells 0-3 HPF (0-3) 04/17/18 21:07 Urine Bacteria None Seen HPF (None Seen) 04/17/18 21:07 - Radiology Interpretation CT scan - head Status: report reviewed by me (no acute intracranially bleed) CT scan - abdomen Status: report reviewed by me (b/l pleural effusion, right greater than left) FMR H&P: A/P - Problem List (1) Bradycardia Current Visit: Yes Status: Acute Code(s): R00.1 - BRADYCARDIA, UNSPECIFIED (2) Encephalopathy Current Visit: No Status: Resolved Code(s): G93.40 - ENCEPHALOPATHY, UNSPECIFIED (3) Atrial fibrillation Current Visit: No Status: Acute Code(s): I48.91 - UNSPECIFIED ATRIAL FIBRILLATION (4) GERD (gastroesophageal reflux disease) Current Visit: No Status: Chronic Code(s): K21.9 - GASTRO-ESOPHAGEAL REFLUX DISEASE WITHOUT ESOPHAGITIS (5) HTN (hypertension) Current Visit: No Status: Chronic Code(s): I10 - ESSENTIAL (PRIMARY) HYPERTENSION (6) Hyperlipidemia Current Visit: No Status: Chronic Code(s): E78.5 - HYPERLIPIDEMIA, UNSPECIFIED (7) Psoriasis Current Visit: No Status: Chronic Code(s): L40.9 - PSORIASIS, UNSPECIFIED - Plan 83 yo f with pmhx of htn, hld, afib presents with bradycardia: #Bradycardia- -Admitted to CCU. Pt is currently being transcutaneously paced and cardiology was consulted in the ER for percutaneous pacer placement in the morning. Pt currently on an epinephrine drip as well. #Encephalopathy- -likely 2/2 ischemia from cardiac hypoperfusion. GCS10. Currently on epinephrine drip. CT hd negative for acute bleed. Pupils not reactive. Will continue to monitor and do serial neuro checks. #Afib -recent hospital admission for new onset afib with rvr. Currently admitted for bradycardia. Will hold metoprolol but restart eliquis. #HTN -controlled on losartan-hctz; continue home meds #HLD -restart simvastatin 20mg daily #Anemia -monitor via cbc daily #Psoriasis -monitor Code: DNR FMR H&P: Upper Level - Plan Date/Time: 04/17/18 8711 I, [], have evaluated this patient and agree with findings/plan as outlined by international affairs vice president resident. Pertinent changes/additions are listed here. Attending Addendum - Attending Addendum Date/Time: 04/18/18 4905 I personally evaluated the patient and discussed the management with Dr. Freeman I agree with the History, Examination, Assessment and Plan documented above with any addition or exceptions noted below. 83 yo female with multiple medical conditions was transferred from outside facility via [facility] for severe bradycardia. Patient was reported to be a baseline health earlier on day of admission. However during the evening hours nursing staff noticed shaking and altered mental status. Upon arrival of EMS patient was noted to be bradycardic to a HR of 25 bpm. At the outside facility external pacers were placed. HR increased to 60 bpm. BP was initially hypotensive. Epi drip was started and now pressure and MAP appropriate. VS reviewed. Labs reviewed. Imaging reviewed. Patient unresponsive on exam. Pupils sluggish. External pacer in place. Bradycardia: Symptomatic. Concern for neurovascular syndrome related to hypoperfusion related ischemia. CT head no gross changes. Consider MRI in AM. Cards notified. Will re-assess in AM for permanent pacer. Discussed with POA and reports patient would want to proceed with pacer if she regains cognitive function. Place in ICU. Continue external pacing per cards with epi drip. Adjust home meds as needed. Monitor fluids closely due to history of HF and chronic pleural effusions requiring thorocentesis. Consult pulm in AM. Will readdress plan and goals of care with POA in AM. Jovan
[2018-04-18 00:52] LABS: Troponin I 0.044 ng/mL (< 0.028)
[2018-04-18] MEDS: PROVENTIL INHALER 6.7 G (200 INHALATIONS) INH SCH ×6 (02:30→22:08)
[2018-04-18] MEDS ORDERED: Furosemide 40 MG/4 ML VIAL SLOW IVP SCH (02:45)
[2018-04-18] MEDS ORDERED: Furosemide 20 MG/2 ML VIAL SLOW IVP SCH (03:15)
--- NOTE | 2018-04-18 03:49 | PDOC.OP ---
Operative Note - Operative Note Operative Note: INDICATION: Hemodynamic instability Resident: Unique Schwartz MD PGY1 Attending Physician: Zenon Villalobos MD Ultrasound Used: Yes CONSENT: Unable to obtain due to AMS PROCEDURE SUMMARY: Hands were washed immediately prior to the procedure. I wore a surgical cap, mask with protective eyewear, sterile gown and sterile gloves throughout the procedure. The LEFT inguinal region was prepped using chlorhexidine scrub and draped in sterile fashion using a three quarter sheet drape and sterile towels. The femoral pulse was identified. Anesthesia was achieved using 1% lidocaine. Using US guidance, the introducer needle was inserted Medial to the femoral artery, inferior to the inguinal crease and into the Femoral vein. Venous blood was withdrawn. The syringe was removed and a guidewire was advanced into the introducer needle. A small incision was made at the skin surface with a scalpel and the introducer needle was exchanged for a dilator over the guidewire. After appropriate dilation was obtained, the dilator was exchanged over the wire for a femoral central venous catheter. The wire was removed and the catheter was sutured in place. A sterile dressing was placed over the catheter at the insertion site. At time of procedure completion, all ports aspirated and flushed properly. Estimated blood loss is <5ml.
[2018-04-18 05:07] LABS: #Eosinphils 0.1 thou/uL (0.0-0.7); #Lymphocytes 0.4 thou/uL (1.20-3.40); #Monocytes 1.1 thou/uL (0.11-0.59); #Neutrophils 8.6 thou/uL (1.40-6.50); %Basophils 0.3 % (0.0-1.0); %Eosinophils 0.6 % (0.0-10.0); %Lymphocytes 4.3 % (21.0-51.0); %Monocytes 10.4 % (0.0-10.0); %Neutrophils 84.3 % (42.0-75.0); Hemoglobin 9.4 g/dL (12.0-16.0); Mean Corpuscular HGB CONC 30.9 g/dL (32.0-36.0); Mean Corpuscular Hemoglobin 32.5 pg (27.0-31.0); Mean Platelet Volume 9.8 fL (7.4-10.4); Platelet Count 122 thou/uL (130-400); RBC Distribution Width 14.7 % (11.5-14.5); White Blood Cell (WBC) Count 10.1 thou/uL (4.8-10.8)
[2018-04-18 05:21] LABS: ALT (SGPT) 259 U/L (8-55); AST (SGOT) 241 U/L (5-34); Albumin 3.6 g/dL (3.4-4.8); Alkaline Phosphatase 68 U/L (40-150); Anion Gap 16 mmol/L (10-20); BUN (Urea Nitrogen) 55 mg/dL (9.8-20.1); Bilirubin, Total 0.4 mg/dL (0.2-1.2); Calc. Creatinine Clearance 23 mL/min (70-130); Calcium 8.5 mg/dL (7.8-10.44); Carbon Dioxide 28 mmol/L (23-31); Chloride 100 mmol/L (98-107); Estimated GFR-MDRD 25; Globulin 2.3 g/dL (2.4-3.5); Glucose 168 mg/dL (83-110); Potassium 4.7 mmol/L (3.5-5.1); Protein, Total 5.9 g/dL (6.0-8.3); Sodium 139 mmol/L (136-145)
[2018-04-18 05:24] LABS: Troponin I 0.076 ng/mL (< 0.028)
[2018-04-18] MEDS ORDERED: Prevnar 13-Val Conj/PF 0.5 ML SYRINGE IM ONE (09:00)
[2018-04-18] MEDS ORDERED: Losartan/Hydrochlorothiazide 100 mg/25 mg Tablet PO SCH (09:00)
[2018-04-18] MEDS ORDERED: Furosemide 20 MG TAB PO SCH (09:00)
[2018-04-18] MEDS ORDERED: Non-Formulary Item 1 EACH (Esomeprazole Magnesium [Nexium] 40 MG) PO SCH (09:00)
--- NOTE | 2018-04-18 09:10 | PDOC.FM ---
- Subjective Subjective: 83 yo F hospital day 2 for symptomatic bradycardia. Pt had no acute events overnight and remained tc paced throughout the night. She is not responsive to verbal stimuli and will not answer questions this am. I am unsure of pts baseline mentation. HR 60s TC pace on epinephrine. - Objective Vital Signs & Weight: Vital Signs (12 hours) Temp Pulse Ox 04/18/18 06:16 99 04/18/18 05:00 98 F 04/18/18 02:05 99 F 90 L Weight Admit Weight 64.2 kg Weight 64.2 kg Most Recent Monitor Data Heart Rate from ECG 61 NIBP 114/40 NIBP BP-Mean 64 Respiration from ECG 21 SpO2 94 I&O: 04/17/18 04/18/18 04/19/18 06:59 06:59 06:59 Intake Total 287 Output Total 375 Balance -88 Result Diagrams: 04/18/18 03:34 04/18/18 03:34 Radiology Reviewed by me: Yes <Wander Ramos - Last Filed: 04/18/18 09:19> - Objective Vital Signs & Weight: Vital Signs (12 hours) Temp Pulse Ox 04/18/18 07:00 98.1 F 04/18/18 06:16 99 04/18/18 05:00 98 F 04/18/18 02:05 99 F 90 L Weight Admit Weight 64.2 kg Weight 64.2 kg Most Recent Monitor Data Heart Rate from ECG 58 NIBP 95/74 NIBP BP-Mean 81 Respiration from ECG 16 SpO2 95 I&O: 04/17/18 04/18/18 04/19/18 06:59 06:59 06:59 Intake Total 287 Output Total 375 340 Balance -88 -340 Result Diagrams: 04/18/18 03:34 04/18/18 03:34 <Mo North - Last Filed: 04/18/18 11:48> Phys Exam - Physical Examination lethargic, not following commands, non-verbal HEENT: PERRLA, sclera anicteric Neck: no nodes, no JVD Respiratory: no wheezing, no rales, no rhonchi, clear to auscultation bilateral Cardiovascular: RRR, no significant murmur, no rub paced Gastrointestinal: soft, non-tender, positive bowel sounds Musculoskeletal: no edema, pulses present Neurological: non-focal, moves all 4 limbs Skin: no rash, cap refill <2 seconds <Wander Ramos - Last Filed: 04/18/18 09:19> Dx/Plan (1) Bradycardia Code(s): R00.1 - BRADYCARDIA, UNSPECIFIED Status: Acute (2) Atrial fibrillation Code(s): I48.91 - UNSPECIFIED ATRIAL FIBRILLATION Status: Acute (3) HTN (hypertension) Code(s): I10 - ESSENTIAL (PRIMARY) HYPERTENSION Status: Chronic (4) Acute kidney injury Code(s): N17.9 - ACUTE KIDNEY FAILURE, UNSPECIFIED Status: Acute (5) Pleural effusion Code(s): J90 - PLEURAL EFFUSION, NOT ELSEWHERE CLASSIFIED Status: Acute (6) Transaminitis Code(s): R74.0 - NONSPEC ELEV OF LEVELS OF TRANSAMNS & LACTIC ACID DEHYDRGNSE Status: Acute (7) Encephalopathy Code(s): G93.40 - ENCEPHALOPATHY, UNSPECIFIED Status: Resolved (8) Elevated TSH Code(s): R79.89 - OTHER SPECIFIED ABNORMAL FINDINGS OF BLOOD CHEMISTRY Status : Acute - Plan Plan: 1) Bradycardia: - pt remains paced and on epinephrine for chronoctropic and ionotropic support - cards spoke with pt MPOA this am and they wish to proceed with pacemaker placement - possibly today vs Saturday - pts BP/rate control medications to be held and eliquis to be held to see if pt responds to med decrease - vss with TC pacing and epi support 2) HTN: - hold metoprolol - monitor 3) A-fib: - currently bradycardic - will need pacemaker placement - hold metoprolol - monitor VS 4) SHAISTA: - acute bump in renal function - this is 2/2 cardiorenal syndrome and not 2/2 hypovolemia 5) Encephalopathy - likley 2/2 cardiogenic failure 6) Transaminitis: - likley cardiogenic - 2/2 hepatic congestion vs hypoperfusion 7) Elevated TSH: - Free T3/T4 pending - f/u accordingly with results Dispo: Serious; Pt requiring TC pacing and epinephrine for cardiac support, will ultimately need pacemake. Cardiology has been consulted, awaiting recommendations and plan of care regarding pacemaker. Will cont to trend labs; suspect end organ will improve with improved cardiac output. <Wander Ramos - Last Filed: 10/19/18 09:19> Attending Addendum - Attending Addendum Date/Time: 04/18/18 4581 I personally evaluated the patient and discussed the management with Dr. Ramos I agree with the History, Examination, Assessment and Plan documented above with any addition or exceptions noted below. Patient currently not paced HR in 60s with IV epinephrine support, beta ricky d/c'ed since admission negatice eval for ACS appreciate rec from Cardiology continue to evaluate for pacemaker placement.Appreciate Cardiology recs. <Mo North - Last Filed: 04/18/18 11:48>
--- NOTE | 2018-04-18 10:31 | PQF ---
GLENN HERMOSILLO NICHOLAS *r [id number] U-[id number] CLINICAL DOCUMENTATION IMPROVEMENT CLARIFICATION FORM: ICD-10 Updated PLEASE DO AN ADDENDUM TO THE PROGRESS NOTE WITH ANY DOCUMENTATION UPDATES OR ADDITIONS AND CARRY THROUGH TO DC SUMMARY. THANK YOU. DATE: 04/18/18 ATTN: DR. BOOTHE Please exercise your independent, professional judgment in responding to the clarification form. Clinical indicators are provided on the bottom of this form for your review Please check appropriate box(s): [ ] Cardiogenic Shock due to cardiorenal syndrome [ ] Shock Unspecified [ x ] Other diagnosis: symptomatic bradycardia [ ] Unable to determine In addition, please specify: Present on Admission (POA): [ x ] Yes [ ] No [ ] Unable to determine For continuity of documentation, please document condition throughout progress notes and discharge summary. Thank You. CLINICAL INDICATORS - SIGNS / SYMPTOMS / LABS increase BUN/Coal Cutter--> SHAISTA per H&P, this is 2/2 cardiorenal syndrome per 04/18 IM note 04/17 lab: bun 52, creat 1.78; 04/18 bun 55, creat 1.94 Hypotension (refractory to adequate fluid resuscitation , decrease in CO and SVR , arrhythmias--> 04/18 IM: Suspect end organ will improve with improved cardiac output Resp >22 or <10/min, hypoxia--< 04/17 RR 25 per VS AMS, Obtunded--> encephalopathy likely 2/2 cardiogenic failure BP down to 85/56 per VS 04/17 RISK FACTORS Bradycardia per H&P TREATMENTS: ICU admit orders 04/17 Vasopressors--> Epinephrine drip 04/17 per MAR Maximizing oxygenation--> Non rebreather per orders 04/17 to date Cardiology consult 04/17 per orders 1 liter NS bolus in ED per orders (This form is maintained as a part of the permanent medical record) ZOILA
--- NOTE | 2018-04-18 11:01 | PQF ---
GLENN HERMOSILLOSTEVEN [id number] U-[id number] CLINICAL DOCUMENTATION IMPROVEMENT CLARIFICATION FORM: ICD-10 Updated PLEASE DO AN ADDENDUM TO THE PROGRESS NOTE WITH ANY DOCUMENTATION UPDATES OR ADDITIONS AND CARRY THROUGH TO DC SUMMARY. THANK YOU. DATE: 04/18/18 ATTN: DR. BOOTHE Please exercise your independent, professional judgment in responding to the clarification form. Clinical indicators are provided on the bottom of this form for your review Please check appropriate box(s): [ x ] Encephalopathy: Type: [ x] Acute [ ] Subacute [ ] Chronic Etiology: [ ] Metabolic [ x ] Cardiogenic [ ] Unspecified [ ] in the setting of underlying dementia [ ] Other (please specify) [ ] Transient Alteration of Awareness [ ] Other diagnosis [ ] Unable to determine In addition, please specify: Present on Admission (POA): [ x ] Yes [ ] No [ ] Unable to determine For continuity of documentation, please document condition throughout progress notes and discharge summary. Thank You. CLINICAL INDICATORS - SIGNS / SYMPTOMS / LABS Altered mental status / confusion improving once cause is corrected (acute)--> H &P: Encephalopathy-likely 2/2 ischemia from cardiac hypoperfusion Metabolic / electrolyte abnormality--> SHAISTA on CKD per H&P; labs 04/17 bun 52, creat 1.78; 04/18 bun 55, creat 1.94 BP 85/56 per 04/17 VS UTI per ED note 04/17; lab showed UA small leuk, wbc 4-6 RISK FACTORS SHAISTA on CKD, admitted with bradycardia and hypotension per H&P TREATMENTS: ICU 04/17 orders IV antibiotics--> Rocephin IV x1 per SEP 07 IV fluids--> 1 liter NS per SEP 07 Thank you, Sandra (This form is maintained as a part of the permanent medical record) 2014 [employer]. All Rights Reserved Sandra Miller RN, BSN, CCDS [email or web address] [phone] MTDD
--- NOTE | 2018-04-18 11:05 | CON ---
DATE OF CONSULTATION: 04/18/2018 This is an 83-year-old female, pretty much encephalopathic in the ICU, brought in from the nursing ho vt. She is a DNR, do not intubate, but was found to have severe bradycardia. A Zoll has been placed in. During the process Cardiology to try and discuss with family whether a pacemaker is needed, but she clearly does not want to be intubated. She underwent a thoracentesis by Dr. Fine several weeks ago. X-ray shows once again a large right-sided pleural effusion. We are unable to get any additional history at this time from the patient. PAST MEDICAL HISTORY: Previous history of carcinoma, status post mastectomy, reflux, depression, CHF , diastolic dysfunction. PAST SURGICAL HISTORY: Left rotator cuff surgery, mastectomy, left breast, tonsils, adenoids. Alcoh ol none. Tobacco none. senior living. MEDICATIONS: From the care home has included a long list include Diamox 250, Eliquis 5 mg twice a day, omeprazole, losartan 25, Toprol-XL 100 twice a day, Zocor 20, Flomax 0.4. ALLERGIES: None. REVIEW OF SYSTEMS: Unobtainable. PHYSICAL EXAMINATION: VITAL SIGNS: Sats 90%, blood pressure 112/40, respirations 18, pulse is 70. NEURO: Neurologically is encephalopathic. Trace edema. CHEST: Chest reveals decreased breath sounds, right greater than left. CARDIAC: Normal S1-S2. No gallops. ABDOMEN: Soft. LABORATORY: White count 10,000, H&H 9 and 30, platelet count 122, creatinine 1.94. AST is 241. IMPRESSION: 1. Large right pleural effusion. 2. Bradycardia. 3. Advanced age. 4. DNR. PLAN: Await input from Cardiology regarding the pacemaker insertion or not. Pulmonary-archibald, no need to tap with thoracentesis. She appears to be otherwise essentially asymptoma tic. She is a DNR. We will follow while in the ICU. This is a consultation note, 70 minutes, 50% spent in direct patient care.
--- NOTE | 2018-04-18 11:10 | PQF ---
GLENN HERMOSILLOSTEVEN [id number] U-[id number] CLINICAL DOCUMENTATION IMPROVEMENT CLARIFICATION FORM: ICD-10 Updated PLEASE DO AN ADDENDUM TO THE PROGRESS NOTE WITH ANY DOCUMENTATION UPDATES OR ADDITIONS AND CARRY THROUGH TO DC SUMMARY. THANK YOU. DATE: 04/18/18 ATTN: DR. BOOTHE Please exercise your independent, professional judgment in responding to the clarification form. Clinical indicators are provided on the bottom of this form for your review Please check appropriate box(s): [ x ] Acute Respiratory Failure: [ x ] with Hypoxia [ ] Hypoxia [ ] Other diagnosis [ ] Unable to determine In addition, please specify: Present on Admission (POA): [ x ] Yes [ ] No [ ] Unable to determine For continuity of documentation, please document condition throughout progress notes and discharge summary. Thank You. CLINICAL INDICATORS - SIGNS / SYMPTOMS / LABS 04/18 RR 25; 95% on Non-Rebreather per VS Pulmonary vascular congestion CXR 04/17 BNP 844.5 RISK FACTORS H&P: ENCEPHALOPATHY-LIKELY 2/2 ISCHEMIA FROM CARDIAC HYPOPERFUSION. SHAISTA ON CKD, HX: HF TREATMENTS: Oxygen--Non rebreather 04/17 to date per orders Pulmonary consult 04/17 per orders Lasix iv x1 04/17 per MAR Monitoring of oxygenation status 04/17 per orders (This form is maintained as a part of the permanent medical record) 2014 [employer]. All Rights Reserved Sandra Miller RN, BSN, CCDS [email or web address]
[2018-04-18] MEDS ORDERED: Dextrose 5 % And 0.9 % NaCl 1,000 ML IV SCH (11:15)
[2018-04-18] MEDS: Pantoprazole 40 MG VIAL IVP SCH (11:21)
--- NOTE | 2018-04-18 12:04 | CON ---
DATE OF CONSULTATION: 04/18/2018 HISTORY OF PRESENT ILLNESS: Patient is an 83-year-old woman who presents for evaluation after losing consciousness. The patient has a previous history of atrial fibrillation. She was recently hospitalized and was placed on amiodarone and Eliquis. The patient suddenly lost consciousness. She was emergently sent to [facility] for further evaluation. The patient was admitted to the ICU and placed on IV epinephrine. PAST MEDICAL HISTORY: Hypertension, Atrial fibrillation, Congestive heart failure, and Psoriasis. PAST SURGICAL HISTORY: Mastectomy, and tonsillectomy. SOCIAL HISTORY: She [facility] in a jail. MEDICATIONS: See jail list. PHYSICAL EXAMINATION: GENERAL: Ill-appearing woman who is confused with a blood pressure 114/40. NECK: Full. LUNGS: Clear to auscultation. HEART: Regular rate and rhythm, normal S1, S2. ABDOMEN: Nondistended. LABORATORY: Sodium 139, potassium 4.7, chloride 100, bicarbonate 18, BUN 55, creatinine 1.94, ALT was 241. White blood cell count 10.1, hemoglobin 9.4, hematocrit 30.5, platelets 122. INR was 1.6. Telemetry monitoring revealed third degree AV block. IMPRESSION: 1. Third-degree heart block. 2. History of atrial fibrillation. 3. History of hypertension. 4. Dyslipidemia. This patient presents with third degree AV block and hypertension. She was on high doses of Toprol and amiodarone to try to maintain sinus rhythm .From a cardiac standpoint, we would recommend placement of electronic pacemaker with then restarting amiodarone. We will follow this patient with you through her hospitalization. Time of this critical care note, 30 minutes. ZOILA
[2018-04-19] MEDS: PROVENTIL INHALER 6.7 G (200 INHALATIONS) INH SCH ×2 (02:42→07:47)
[2018-04-19 05:40] LABS: #Eosinphils 0.1 thou/uL (0.0-0.7); #Lymphocytes 0.6 thou/uL (1.20-3.40); #Monocytes 0.8 thou/uL (0.11-0.59); #Neutrophils 6.3 thou/uL (1.40-6.50); %Basophils 0.5 % (0.0-1.0); %Eosinophils 1.4 % (0.0-10.0); %Lymphocytes 7.1 % (21.0-51.0); %Monocytes 10.3 % (0.0-10.0); %Neutrophils 80.6 % (42.0-75.0); Hemoglobin 9.2 g/dL (12.0-16.0); Mean Corpuscular HGB CONC 32.2 g/dL (32.0-36.0); Mean Corpuscular Hemoglobin 34.3 pg (27.0-31.0); Mean Platelet Volume 9.6 fL (7.4-10.4); Platelet Count 89 thou/uL (130-400); RBC Distribution Width 14.6 % (11.5-14.5); Red Blood Cell (RBC) Count 2.69 mill/uL (4.20-5.40); White Blood Cell (WBC) Count 7.8 thou/uL (4.8-10.8)
[2018-04-19 05:46] LABS: Albumin 3.7 g/dL (3.4-4.8); Alkaline Phosphatase 73 U/L (40-150); Anion Gap 10 mmol/L (10-20); BUN (Urea Nitrogen) 56 mg/dL (9.8-20.1); Bilirubin, Total 0.5 mg/dL (0.2-1.2); Calc. Creatinine Clearance 27 mL/min (70-130); Calcium 8.9 mg/dL (7.8-10.44); Carbon Dioxide 36 mmol/L (23-31); Chloride 99 mmol/L (98-107); Estimated GFR-MDRD 30; Globulin 2.5 g/dL (2.4-3.5); Glucose 141 mg/dL (83-110); Potassium 4.7 mmol/L (3.5-5.1); Protein, Total 6.2 g/dL (6.0-8.3); Sodium 140 mmol/L (136-145)
[2018-04-19 05:47] LABS: ALT (SGPT) 225 U/L (8-55); AST (SGOT) 117 U/L (5-34)
[2018-04-19 07:13] LABS: Free T4 (Free Thyroxine) 0.89 ng/dL (0.70-1.48)
--- NOTE | 2018-04-19 07:17 | PDOC.FM ---
- Subjective Subjective: Pt required pacing overnight. She was maintaining pulse in the 60s without epi or pacing; however she was rolled and again became bradycardic into the 30s. She is currently oriented to person and place. Denies CP. Reports some SOB. - Objective Vital Signs & Weight: Vital Signs (12 hours) Temp Pulse Resp Pulse Ox 04/19/18 07:08 89 L 04/19/18 04:00 98.4 F 04/19/18 02:42 63 21 H 04/19/18 00:00 98.6 F 04/18/18 22:08 60 21 H 04/18/18 20:00 98.4 F 92 L Weight Admit Weight 64.2 kg Weight 64.2 kg Most Recent Monitor Data Heart Rate from ECG 53 NIBP 91/51 NIBP BP-Mean 64 Respiration from ECG 27 SpO2 86 I&O: 04/18/18 04/19/18 04/20/18 06:59 06:59 06:59 Intake Total 287 465 Output Total 375 890 Balance -88 -425 Result Diagrams: 04/19/18 05:25 04/19/18 05:25 <Wander Ramos - Last Filed: 04/19/18 07:15> - Objective Vital Signs & Weight: Vital Signs (12 hours) Temp Pulse Resp Pulse Ox 04/19/18 11:00 97.9 F 04/19/18 09:53 96 04/19/18 09:00 98.1 F 04/19/18 07:08 89 L 04/19/18 04:00 98.4 F 04/19/18 02:42 63 21 H Weight Admit Weight 64.2 kg Weight 64.2 kg Most Recent Monitor Data Heart Rate from ECG 70 NIBP 91/68 NIBP BP-Mean 75 Respiration from ECG 25 SpO2 94 I&O: 04/18/18 04/19/18 04/20/18 06:59 06:59 06:59 Intake Total 287 608 Output Total 375 1010 1487 Balance -88 -807 -6205 Result Diagrams: 04/19/18 05:25 04/19/18 05:25 <Mo North - Last Filed: 04/19/18 12:45> Phys Exam - Physical Examination mildly distressed, A&O X2 HEENT: PERRLA, moist MMs, sclera anicteric Neck: no JVD Respiratory: no wheezing, no rales, no rhonchi, clear to auscultation bilateral diminished breath sounds b/l bases Cardiovascular: RRR, no significant murmur, no rub Gastrointestinal: soft, non-tender, no distention, positive bowel sounds Musculoskeletal: no edema, pulses present Neurological: non-focal, moves all 4 limbs Deviation from normal: A&OX2 Skin: no rash, cap refill <2 seconds <Wander Ramos - Last Filed: 04/19/18 07:15> Dx/Plan (1) Bradycardia Code(s): R00.1 - BRADYCARDIA, UNSPECIFIED Status: Acute (2) Atrial fibrillation Code(s): I48.91 - UNSPECIFIED ATRIAL FIBRILLATION Status: Acute (3) HTN (hypertension) Code(s): I10 - ESSENTIAL (PRIMARY) HYPERTENSION Status: Chronic (4) Acute kidney injury Code(s): N17.9 - ACUTE KIDNEY FAILURE, UNSPECIFIED Status: Acute (5) Pleural effusion Code(s): J90 - PLEURAL EFFUSION, NOT ELSEWHERE CLASSIFIED Status: Acute (6) Transaminitis Code(s): R74.0 - NONSPEC ELEV OF LEVELS OF TRANSAMNS & LACTIC ACID DEHYDRGNSE Status: Acute (7) Encephalopathy Code(s): G93.40 - ENCEPHALOPATHY, UNSPECIFIED Status: Resolved (8) Elevated TSH Code(s): R79.89 - OTHER SPECIFIED ABNORMAL FINDINGS OF BLOOD CHEMISTRY Status : Acute (9) Recurrent pleural effusion on right Code(s): J90 - PLEURAL EFFUSION, NOT ELSEWHERE CLASSIFIED Status: Chronic (10) Acute respiratory failure with hypoxia Code(s): J96.01 - ACUTE RESPIRATORY FAILURE WITH HYPOXIA Status: Resolved - Plan Plan: 1) Bradycardia: - pt remains paced and on epinephrine for chronoctropic and ionotropic support, she had slight vacation from medication and pacing yesterday; however, became bradycardic again after decrease in meds/interventions. Will titrate meds to maintain pulse in the high 50s minimum - cards spoke with pt MPOA this am and they wish to proceed with pacemaker placement - placement of pacemaker saturday - vss with TC pacing and epi support 2) HTN: - hold metoprolol - monitor 3) A-fib: - stable and paced/epi for chronotropic support - will need pacemaker placement - hold metoprolol 4) SHAISTA: - christinaley consequence of bradycardia - improved from yesterday, maintaining adequate UOP 5) Encephalopathy - likley 2/2 cardiogenic failure, improving - Curtrently oriented X2 alert and appropriately responsive 6) Transaminitis: -likley from hypoperfusion, improving. Cont to trend 7) Elevated TSH: - Free T3/T4 pending - f/u accordingly with results 8) Hypoxic resp failure with hypoxia: - Pt O2 demand has increased and currently on NRB, will repeat CXR today; possibly 2/2 worsening pleural effusion vs hypoperfusion from symptomatic debbie Dispo: Pt still requiring pacing and epi; will ultimately need pacemaker placement. ill check CXR to assess respiratory status, consider neuro chair if pts pulse stabilizes for improved vent/oxygenation. <Wander Ramos - Last Filed: 04/19/18 07:15> Attending Addendum - Attending Addendum Date/Time: 04/19/18 1245 I personally evaluated the patient and discussed the management with Dr. Ramos I agree with the History, Examination, Assessment and Plan documented above with any addition or exceptions noted below. Appreciate rec from Cardiology <Mo North - Last Filed: 04/19/18 12:45>
[2018-04-19] MEDS ORDERED: Lidocaine 1% w/Epinephrine 1:100K 20 ML VIAL ONE (09:11)
[2018-04-19] MEDS ORDERED: Lidocaine 1% (PF) 30 ML VIAL ONE (09:11)
--- NOTE | 2018-04-19 11:02 | RAD ---
CHEST 1 VIEW: HISTORY: Worsening shortness of breath. COMPARISON: 04/17/2018. FINDINGS: Near-complete opacification of the right hemithorax suggesting progression of pleural and parenchymal changes. Obscuration of the right heart border. There is atherosclerosis of the aorta. There appe ars to be a left perihilar infiltrate. No evidence of pneumothorax on this upright projection. IMPRESSION: 1. Worsening opacification of the right hemithorax suggesting progression of pleural and parenchymal changes. 2. Let perihilar infiltrate. POS: ALINE
[2018-04-19] MEDS: Dextrose 5%-Lactated Ringers 1,000 ML IV SCH (11:11)
[2018-04-19] MEDS: Pantoprazole 40 MG VIAL IVP SCH (11:11)
--- NOTE | 2018-04-19 11:13 | RAD ---
CHEST 1 VIEW: COMPARISON: 04/19/2018 at 3:33 a.m. FINDINGS: Improved aeration of the right hemithorax. Previously noted near-complete opacification has resolved . There is stable opacification in the left perihilar region. A small left-sided pleural effusion i s noted. Stable configuration of the cardiac silhouette. Stable atherosclerosis. Presumed chronic changes involving the proximal left humerus. IMPRESSION: 1. Improved aeration of the right lung. 2. Persistent left perihilar opacification. POS: ALINE
--- NOTE | 2018-04-19 13:51 | PRG ---
DATE OF SERVICE: 04/19/2018 SUBJECTIVE: Berenice Laboy remains encephalopathic. OBJECTIVE: Pulse is 58, blood pressure 117/56, sats 84% on a mask, respirations 19. X-ray shows complete opacification of the right lung. White count is 7000, H and H 9 and 28, platele t count is 89. Creatinine 1.62. IMPRESSION: 1. Congestive heart failure. 2. Large right pleural effusion, worsening. 3. Hypoxemia. 4. Bradycardia. She is supposed to get a pacemaker, unclear when. She is clearly hypoxic. We will consider thoracentesis family. We will follow. Prognosis is grave. She is a DNR/DO NOT INTUBATE.
--- NOTE | 2018-04-19 14:19 | OP ---
PROCEDURE: Thoracentesis. INDICATIONS: Massive pleural effusion. PROCEDURE IN DETAIL: After informed consent, the right posterior thorax was cleaned with chlorhexidi ne, 1% lidocaine was infiltrated into the intercostal space and midscapular area and the pleura entered and about 20 mL of pale yellow fluid was removed. Thereafter, using an [address], a total of 1400 mL was removed without difficulty. Pleural effusion is transudative and will no t be sent for any cultures or cytology. She has already had this done several times. The patient tolerated the procedure well.
[2018-04-19 14:52] LABS: Fluid, Triglycerides 13 mg/dL (Not Available); Pleural Fluid, Amylase Less than 30 U/L (Not Available); Pleural Fluid, Glucose 155 mg/dL; Pleural Fluid, LDH 81 U/L (Not Available); Pleural Fluid, Protein 1.5 g/dL
[2018-04-19 14:53] LABS: BF Color Yellow; BF RBC Count - Manual 1825 /cumm; Body Fluid Source PLEURAL FLUID; Clarity Hazy (Clear); Fluid, pH - Pleural Fld 7.36; RBC Background Count 0.006; Tube # EDTA; WBC/NonHematic-Auto 207 /cumm
[2018-04-19 15:21] LABS: BF Segmented Neutrophils 25 %; Cell Count Non Hematic 43 %; Eosinophils 3 %; Lymphocytes 25 %
[2018-04-20] MEDS ORDERED: Ibuprofen 100 MG/5 ML UDCUP PO SCH (01:00)
--- NOTE | 2018-04-20 03:27 | PDOC.EVN ---
Event Note - Event Note Event Note: Called by pt nurse as pt was maintaining O2 sat ~83-82%. Pt was resting comfortably and when woken up denied any SOB, cough, or wheezing. Pt had been on high flow nasal cannula earlier in the evening but did not tolerate and had increased RR. O- Pt resting comfortably in no apparent distress. SBP in high 80s/low90's on epi drip, O2sat 82% but increased as high as 88% when pt was awakened and started coughing. Bilateral inspiratory and expiratory crackles on auscultation , worse on R side and R lung base. RRR no murmurs. A/P- Pt did not tolerate high flow NC and is DNR/DNI. Reassured by Sats increasing with being roused by cough. Will order mucinex, CXR for AM
[2018-04-20] MEDS ORDERED: Diabetic Tussin 200 MG/10 ML UDCUP PO SCH (03:30)
[2018-04-20] MEDS: Dextrose 5%-Lactated Ringers 1,000 ML IV SCH ×2 (04:05→18:21)
[2018-04-20 04:58] LABS: #Lymphocytes 0.5 thou/uL (1.20-3.40); #Monocytes 0.8 thou/uL (0.11-0.59); #Neutrophils 7.6 thou/uL (1.40-6.50); %Basophils 0.2 % (0.0-1.0); %Eosinophils 0.4 % (0.0-10.0); %Lymphocytes 5.2 % (21.0-51.0); %Monocytes 8.6 % (0.0-10.0); %Neutrophils 85.5 % (42.0-75.0); Hemoglobin 8.8 g/dL (12.0-16.0); Mean Corpuscular HGB CONC 31.9 g/dL (32.0-36.0); Mean Corpuscular Hemoglobin 33.8 pg (27.0-31.0); Mean Platelet Volume 9.7 fL (7.4-10.4); Platelet Count 75 thou/uL (130-400); RBC Distribution Width 14.4 % (11.5-14.5); Red Blood Cell (RBC) Count 2.59 mill/uL (4.20-5.40); White Blood Cell (WBC) Count 8.9 thou/uL (4.8-10.8)
[2018-04-20 05:10] LABS: ALT (SGPT) 168 U/L (8-55); AST (SGOT) 58 U/L (5-34); Albumin 3.4 g/dL (3.4-4.8); Alkaline Phosphatase 59 U/L (40-150); BUN (Urea Nitrogen) 47 mg/dL (9.8-20.1); Bilirubin, Total 0.5 mg/dL (0.2-1.2); Calc. Creatinine Clearance 39 mL/min (70-130); Calcium 8.9 mg/dL (7.8-10.44); Chloride 101 mmol/L (98-107); Estimated GFR-MDRD 46; Globulin 2.1 g/dL (2.4-3.5); Glucose 166 mg/dL (83-110); Potassium 4.2 mmol/L (3.5-5.1); Protein, Total 5.5 g/dL (6.0-8.3); Sodium 143 mmol/L (136-145)
[2018-04-20 05:19] LABS: Carbon Dioxide 37 mmol/L (23-31)
[2018-04-20 05:20] LABS: Anion Gap 9 mmol/L (10-20)
--- NOTE | 2018-04-20 07:32 | PDOC.FM ---
- Subjective Subjective: Pt had recurrent desaturations overnight and episodes of transient tachypnea. Did not tolerate HFNC, switched to non-rebreather and maintaining sats in the mid 80s. She currently denies cp, sob, abdominal pain. She is alert and oriented to self and place. - Objective MAR Reviewed: Yes Vital Signs & Weight: Vital Signs (12 hours) Temp Pulse Resp Pulse Ox 04/20/18 06:47 73 32 H 04/20/18 02:25 82 L 04/20/18 01:00 98.4 F 04/19/18 20:00 87 L Weight Admit Weight 64.2 kg Weight 64.2 kg Most Recent Monitor Data Heart Rate from ECG 72 NIBP 156/48 NIBP BP-Mean 84 Respiration from ECG 22 SpO2 84 I&O: 04/19/18 04/20/18 04/21/18 06:59 06:59 06:59 Intake Total 607 666 Output Total 1010 1940 Balance -069 -1490 Result Diagrams: 04/20/18 04:44 04/20/18 04:44 Radiology Reviewed by me: Yes Radiology: CXR shows return of Rt pleural effusion <Wander Ramos - Last Filed: 04/20/18 07:30> - Objective Vital Signs & Weight: Vital Signs (12 hours) Temp Pulse Resp Pulse Ox 04/20/18 13:05 74 22 H 04/20/18 12:00 98.6 F 04/20/18 10:15 84 L 04/20/18 08:00 98.1 F 84 L 04/20/18 06:47 73 32 H 04/20/18 04:00 98.4 F 04/20/18 02:25 82 L Weight Admit Weight 64.2 kg Weight 64.2 kg Most Recent Monitor Data Heart Rate from ECG 70 NIBP 119/51 NIBP BP-Mean 73 Respiration from ECG 31 SpO2 83 I&O: 04/19/18 04/20/18 04/21/18 06:59 06:59 06:59 Intake Total 608 1726 90 Output Total 1010 2040 585 Balance -713 -034 -676 Result Diagrams: 04/20/18 04:44 04/20/18 04:44 <Mo North - Last Filed: 04/20/18 13:16> Phys Exam - Physical Examination mild distress HEENT: PERRLA, moist MMs, sclera anicteric Neck: no nodes, no JVD Respiratory: no wheezing, no rhonchi absent breath sounds rt lower lobe, rales rt upper lobe Cardiovascular: RRR, no significant murmur, no rub Gastrointestinal: soft, non-tender, no distention, positive bowel sounds Musculoskeletal: no edema, pulses present Neurological: non-focal, moves all 4 limbs Deviation from normal: alert and oriented to self and place Skin: no rash, cap refill <2 seconds <Wander Ramos - Last Filed: 04/20/18 07:30> Dx/Plan (1) Bradycardia Code(s): R00.1 - BRADYCARDIA, UNSPECIFIED Status: Acute (2) Atrial fibrillation Code(s): I48.91 - UNSPECIFIED ATRIAL FIBRILLATION Status: Chronic (3) HTN (hypertension) Code(s): I10 - ESSENTIAL (PRIMARY) HYPERTENSION Status: Chronic (4) Acute kidney injury Code(s): N17.9 - ACUTE KIDNEY FAILURE, UNSPECIFIED Status: Acute (5) Pleural effusion Code(s): J90 - PLEURAL EFFUSION, NOT ELSEWHERE CLASSIFIED Status: Acute (6) Transaminitis Code(s): R74.0 - NONSPEC ELEV OF LEVELS OF TRANSAMNS & LACTIC ACID DEHYDRGNSE Status: Acute (7) Encephalopathy Code(s): G93.40 - ENCEPHALOPATHY, UNSPECIFIED Status: Resolved (8) Elevated TSH Code(s): R79.89 - OTHER SPECIFIED ABNORMAL FINDINGS OF BLOOD CHEMISTRY Status : Acute (9) Recurrent pleural effusion on right Code(s): J90 - PLEURAL EFFUSION, NOT ELSEWHERE CLASSIFIED Status: Chronic (10) Acute respiratory failure with hypoxia Code(s): J96.01 - ACUTE RESPIRATORY FAILURE WITH HYPOXIA Status: Resolved - Plan Plan: 1) Bradycardia: - epi at 2 mcs - maintaining rate at 70 BPM - will await cards recs, plan for pacemaker tomorrow 2) HTN: - hold metoprolol - monitor 3) A-fib: - currently bradycardic, rate control medications held 4) SHAISTA: - likely consequence of bradycardia - continues to improve 5) Encephalopathy - likley 2/2 cardiogenic failure vs hypoxic respiratory failure from recurrent rt pleural effusion, stable - Currently oriented X2 alert and appropriately responsive 6) Transaminitis: - improved 7) Elevated TSH: - low T3 and borderline low T4, start synthroid at 25mcg/day 8)resp failure with hypoxia: - continues to require NRB overnight and sats drop to 80s. oxygenation improved after thoracentesis yesterday; however, hypoxia recurred overnight. Pleural effusion has returned on rt. Cont O2 support, pulm consulted appreciate recs Dispo: Pt requiring less epi for chronotropic support; however, respiratory status continues to fluctuate. Will await pulm and cards recs. Cont supportive care. <Wander Ramos - Last Filed: 04/20/18 07:30> Attending Addendum - Attending Addendum Date/Time: 04/20/18 7366 I personally evaluated the patient and discussed the management with Dr. Ramos I agree with the History, Examination, Assessment and Plan documented above with any addition or exceptions noted below.Note desaturation last pm with increased O2 requirement NRB at present didn't tolerate high flow O2 . Recurrent pleural effusion transudate consider more permanent drain if felt clinically appropriate. Patient heart rate controlled with low dose epinephrine drip patient not required pacing with transcutaneous pacer for planned permanent pacemaker tomorrow. Appreciate Cardiology and critical care recommendations. <Mo North - Last Filed: 04/20/18 13:16>
[2018-04-20] MEDS: Pantoprazole 40 MG VIAL IVP SCH (08:10)
[2018-04-20] MEDS: Levothyroxine Sodium 25 MCG TAB PO SCH (08:10)
[2018-04-20] MEDS ORDERED: Furosemide 40 MG/4 ML VIAL SLOW IVP SCH (10:00)
[2018-04-20] MEDS ORDERED: Furosemide 40 MG/4 ML VIAL ONE (10:14)
--- NOTE | 2018-04-20 10:53 | PRG ---
DATE OF SERVICE: 04/20/2018 SUBJECTIVE: This morning, she is awake, alert, and responsive. PHYSICAL EXAMINATION: VITAL SIGNS: Her sats are surprisingly low on a nonrebreather, nasal O2 high 80s. Pulse 77, blood p ressure 130/80. CHEST: Decreased breath sounds without any wheezing. CARDIAC: Normal S1, S2. No gallops. ABDOMEN: Soft, no masses. IMAGING DATA: X-ray shows recurrence of the pleural effusion. I took out almost a liter and half ye sterday from the right side, all transudate. LABORATORY DATA: Creatinine is 1.1, BUN is 47, bicarbonate is 37, white count 8,000. IMPRESSION: Congestive heart failure, bradycardia, recurrent right pleural effusion. PLAN: Lasix and Diamox have been initiated. Continue supportive care. She is going to require pacemaker in the next several days.
--- NOTE | 2018-04-20 10:59 | RAD ---
CHEST 1 VIEW: COMPARISON: 04/19/2018. HISTORY: Status post thoracentesis. Low O2 saturation. FINDINGS: Increased opacification in the right hemithorax suggesting interval development of pleural effusion w ith adjacent parenchymal changes. There is no pneumothorax. There is worsening left perihilar opaci fication suggesting worsening alveolar infiltrate/edema. Stable configuration of the cardiac silhoue tte. No pneumothorax. IMPRESSION: Worsening opacification in the left perihilar region as well as the right hemithorax. POS: ALINE
[2018-04-20] MEDS: acetaZOLAMIDE Sodium 500 mg Vial IVP SCH (12:22)
[2018-04-20] MEDS: Sterile Water 10 ML VIAL IVPB SCH (12:22)
[2018-04-20] MEDS ORDERED: Acetaminophen 500 MG TAB PO PRN (16:32)
[2018-04-21] MEDS: Levothyroxine Sodium 25 MCG TAB PO SCH (05:29)
[2018-04-21 05:32] LABS: #Eosinphils 0.1 thou/uL (0.0-0.7); #Lymphocytes 0.6 thou/uL (1.20-3.40); #Monocytes 0.7 thou/uL (0.11-0.59); #Neutrophils 7.1 thou/uL (1.40-6.50); %Basophils 0.6 % (0.0-1.0); %Eosinophils 0.6 % (0.0-10.0); %Lymphocytes 7.1 % (21.0-51.0); %Monocytes 8.3 % (0.0-10.0); %Neutrophils 83.4 % (42.0-75.0); Hemoglobin 8.9 g/dL (12.0-16.0); Mean Corpuscular HGB CONC 31.6 g/dL (32.0-36.0); Mean Corpuscular Hemoglobin 33.8 pg (27.0-31.0); Mean Platelet Volume 9.8 fL (7.4-10.4); Platelet Count 67 thou/uL (130-400); RBC Distribution Width 14.5 % (11.5-14.5); Red Blood Cell (RBC) Count 2.62 mill/uL (4.20-5.40); White Blood Cell (WBC) Count 8.5 thou/uL (4.8-10.8)
[2018-04-21 05:36] LABS: ALT (SGPT) 124 U/L (8-55); AST (SGOT) 30 U/L (5-34); Albumin 3.3 g/dL (3.4-4.8); Alkaline Phosphatase 68 U/L (40-150); Anion Gap 9 mmol/L (10-20); BUN (Urea Nitrogen) 43 mg/dL (9.8-20.1); Bilirubin, Total 0.5 mg/dL (0.2-1.2); Calc. Creatinine Clearance 45 mL/min (70-130); Carbon Dioxide 37 mmol/L (23-31); Chloride 102 mmol/L (98-107); Estimated GFR-MDRD 54; Globulin 2.4 g/dL (2.4-3.5); Glucose 106 mg/dL (83-110); Potassium 3.9 mmol/L (3.5-5.1); Protein, Total 5.7 g/dL (6.0-8.3); Sodium 144 mmol/L (136-145)
--- NOTE | 2018-04-21 06:48 | PDOC.FM ---
- Subjective Subjective: Pt is in soft restraints asking for water. She's irritated this morning but a& ox2. She is on 40% fiO2 venti mask. - Objective MAR Reviewed: Yes Vital Signs & Weight: Vital Signs (12 hours) Temp Pulse Resp Pulse Ox 04/21/18 03:00 98.4 F 04/21/18 00:15 82 L 04/21/18 00:14 79 26 H 82 L 04/20/18 23:00 98.2 F 04/20/18 20:00 84 L 04/20/18 19:06 80 30 H 80 L 04/20/18 19:00 98 F Weight Admit Weight 64.2 kg Weight 66.2 kg Most Recent Monitor Data Heart Rate from ECG 79 NIBP 131/59 NIBP BP-Mean 83 Respiration from ECG 21 SpO2 85 I&O: 04/19/18 04/20/18 04/21/18 06:59 06:59 06:59 Intake Total 608 1726 798.6 Output Total 1010 2040 1065 Balance -402 -314 -266.4 Result Diagrams: 04/21/18 05:00 04/21/18 05:00 <Gardenia Freeman - Last Filed: 04/21/18 09:29> - Objective Vital Signs & Weight: Vital Signs (12 hours) Temp Pulse Resp Pulse Ox 04/21/18 08:09 88 L 04/21/18 08:08 80 23 H 86 L 04/21/18 08:00 97.0 F L 04/21/18 03:00 98.4 F 04/21/18 00:15 82 L 04/21/18 00:14 79 26 H 82 L 04/20/18 23:00 98.2 F Weight Admit Weight 64.2 kg Weight 66.2 kg Most Recent Monitor Data Heart Rate from ECG 83 NIBP 126/43 NIBP BP-Mean 70 Respiration from ECG 24 SpO2 84 I&O: 04/20/18 04/21/18 04/22/18 06:59 06:59 06:59 Intake Total 1726 798.6 Output Total 2040 1065 30 Balance -314 -266.4 -30 Result Diagrams: 04/21/18 05:00 04/21/18 05:00 <Bridger Martinez - Last Filed: 04/21/18 10:10> Phys Exam - Physical Examination HEENT: PERRLA, moist MMs Respiratory: no wheezing, no rales, clear to auscultation bilateral Cardiovascular: RRR, no significant murmur Gastrointestinal: soft, non-tender, no distention Musculoskeletal: no edema Neurological: non-focal Psychiatric: normal affect Skin: no rash <Gardenia Freeman - Last Filed: 04/21/18 09:29> Dx/Plan (1) Bradycardia Code(s): R00.1 - BRADYCARDIA, UNSPECIFIED Status: Acute (2) Encephalopathy Code(s): G93.40 - ENCEPHALOPATHY, UNSPECIFIED Status: Resolved (3) Atrial fibrillation Code(s): I48.91 - UNSPECIFIED ATRIAL FIBRILLATION Status: Chronic (4) GERD (gastroesophageal reflux disease) Code(s): K21.9 - GASTRO-ESOPHAGEAL REFLUX DISEASE WITHOUT ESOPHAGITIS Status: Chronic (5) HTN (hypertension) Code(s): I10 - ESSENTIAL (PRIMARY) HYPERTENSION Status: Chronic (6) Hyperlipidemia Code(s): E78.5 - HYPERLIPIDEMIA, UNSPECIFIED Status: Chronic (7) Psoriasis Code(s): L40.9 - PSORIASIS, UNSPECIFIED Status: Chronic - Plan Plan: 1) Bradycardia: - 3rd degree heart block - epi at 2 mcs - maintaining rate at 70-80 BPM - will await cards recs, plan for pacemaker today 2) HTN: - hold metoprolol - monitor 3) A-fib: - currently bradycardic, rate control medications held 4) SHAISTA: - likely consequence of bradycardia - continues to improve 5) Encephalopathy - likley 2/2 cardiogenic failure vs hypoxic respiratory failure from recurrent rt pleural effusion, s/p thoracentesis, pending results, stable - Currently oriented X2 alert and appropriately responsive 6) Transaminitis: - improved 7) Elevated TSH: - low T3 and borderline low T4, start synthroid at 25mcg/day 8)resp failure with hypoxia: - continues to require NRB overnight and sats drop to 80s. -s/p thoracentesis, pending results Dispo: Pt requiring less epi for chronotropic support; however, respiratory status continues to fluctuate. Will await pulm and cards recs. Cont supportive care. <Gardenia Freeman - Last Filed: 04/21/18 09:29> Attending Addendum - Attending Addendum Date/Time: 04/21/18 1003 I personally evaluated the patient and discussed the management with Dr. Александр Vázquez. I agree with the History, Examination, Assessment and Plan documented above with any addition or exceptions noted below. 83 y.o. BF with h/o Afib, chronic pleural effusions, HTN, HLD admitted with symptomatic bradycardia, 3rd degree Heart Block, hypoxic respiratory failure, encephalopathy on Epi drip with transcut pacer for implantable pacemaker. <Bridger Martinez - Last Filed: 04/21/18 10:10>
[2018-04-21] MEDS ORDERED: Furosemide 40 MG/4 ML VIAL SLOW IVP SCH (07:00)
[2018-04-21] MEDS: Pantoprazole 40 MG VIAL IVP SCH (08:55)
[2018-04-21] MEDS: Sterile Water 10 ML VIAL IVPB SCH (14:42)
[2018-04-21] MEDS: Haloperidol Lactate 5 MG/ML VIAL IM PRN ×3 (14:43→22:45)
[2018-04-21] MEDS: acetaZOLAMIDE Sodium 500 mg Vial IVP SCH (14:43)
[2018-04-21] MEDS: Furosemide 40 MG/4 ML VIAL SLOW IVP SCH (14:43)
--- NOTE | 2018-04-21 14:59 | PRG ---
DATE OF SERVICE: 04/21/2018 SUBJECTIVE: Ms. Laboy's events have been reviewed. She presented back with congestive heart failur e again. She underwent thoracentesis. Fluid continues to be transudative. She is encephalopathic t bernardo. OBJECTIVE: VITALS: Heart rate is 82, respiratory rates in the low 20s. She has a high flow cannula. Oximetry is 89-92. Blood pressure 125/44. LUNGS: Remarkable for rhonchi bilaterally. HEART: Regular rhythm. ABDOMEN: Soft and nontender. EXTREMITIES: Without asymmetry. LABORATORY DATA: Sodium 144, potassium 3.9, chloride 102, bicarbonate 37, BUN 43, creatinine 0.98. White count 8.5, hemoglobin 8.9, platelets 67,000. IMPRESSION: 1. Advanced cardiomyopathy, diastolic. 2. Complete heart block on presentation. 3. Extreme deconditioning. There was a plan to pace her but I really do not feel that will solve the problem. We will continue to follow with the other physicians caring for her. Critical care time 30 minutes. Intake and outputs reviewed. It has been consistently negative 200 t o 400 mL per day.
[2018-04-21] MEDS: Simvastatin 20 MG TAB PO SCH (20:05)
[2018-04-22] MEDS: Haloperidol Lactate 5 MG/ML VIAL IM PRN ×6 (02:58→22:25)
[2018-04-22] MEDS: Levothyroxine Sodium 25 MCG TAB PO SCH (05:11)
[2018-04-22] MEDS: Furosemide 40 MG/4 ML VIAL SLOW IVP SCH ×2 (05:11→15:38)
[2018-04-22 06:00] LABS: #Eosinphils 0.1 thou/uL (0.0-0.7); #Lymphocytes 0.4 thou/uL (1.20-3.40); #Monocytes 0.5 thou/uL (0.11-0.59); #Neutrophils 5.6 thou/uL (1.40-6.50); %Basophils 0.3 % (0.0-1.0); %Eosinophils 1.3 % (0.0-10.0); %Lymphocytes 5.4 % (21.0-51.0); %Monocytes 8.1 % (0.0-10.0); Hemoglobin 8.4 g/dL (12.0-16.0); Mean Corpuscular Hemoglobin 33.1 pg (27.0-31.0); Mean Platelet Volume 9.8 fL (7.4-10.4); Platelet Count 57 thou/uL (130-400); RBC Distribution Width 14.3 % (11.5-14.5); Red Blood Cell (RBC) Count 2.54 mill/uL (4.20-5.40); White Blood Cell (WBC) Count 6.6 thou/uL (4.8-10.8)
[2018-04-22 06:38] LABS: ALT (SGPT) 81 U/L (8-55); AST (SGOT) 21 U/L (5-34); Alkaline Phosphatase 58 U/L (40-150); BUN (Urea Nitrogen) 39 mg/dL (9.8-20.1); Bilirubin, Total 0.6 mg/dL (0.2-1.2); Calc. Creatinine Clearance 53 mL/min (70-130); Calcium 8.7 mg/dL (7.8-10.44); Carbon Dioxide 34 mmol/L (23-31); Estimated GFR-MDRD 63; Globulin 2.2 g/dL (2.4-3.5); Glucose 91 mg/dL (83-110); Protein, Total 5.2 g/dL (6.0-8.3)
--- NOTE | 2018-04-22 06:44 | PDOC.FM ---
- Subjective Subjective: Ms. Laboy is a&ox2 today, which is the same as yesterday. She did require 5mg IV Haldol x5 overnight for agitation. A chart review of he most recent hospitalization documented encephalopathy as well. This seems to be an acute change from prior hospitalizations. She also at her prior hospitalization required 1L NC O2 on the day prior to discharge. The need for high flow NC is new from last hospitalization. Her O2 sat is improved from yesterday, but still requring 40L high flow NC. - Objective MAR Reviewed: Yes Vital Signs & Weight: Vital Signs (12 hours) Temp Pulse Resp Pulse Ox 04/22/18 03:04 92 L 04/22/18 03:00 98 F 04/22/18 02:32 102 H 32 H 04/21/18 23:00 98 F 04/21/18 20:00 94 L 04/21/18 19:03 88 26 H 96 04/21/18 19:00 98.2 F Weight Admit Weight 64.2 kg Weight 66.2 kg Most Recent Monitor Data Heart Rate from ECG 85 NIBP 106/44 NIBP BP-Mean 64 Respiration from ECG 23 SpO2 95 I&O: 04/20/18 04/21/18 04/22/18 06:59 06:59 06:59 Intake Total 1726 798.6 100 Output Total 2040 1065 1455 Balance -314 -266.4 -1355 Result Diagrams: 04/22/18 05:00 04/22/18 05:00 <Gardenia Freeman - Last Filed: 04/22/18 07:43> - Objective Vital Signs & Weight: Vital Signs (12 hours) Temp Pulse Resp BP Pulse Ox 04/22/18 09:07 98.8 F 115 H 15 85/53 L 90 L 04/22/18 08:00 98.8 F 04/22/18 06:44 94 L 04/22/18 06:27 83 21 H 94 L 04/22/18 03:04 92 L 04/22/18 03:00 98 F 04/22/18 02:32 102 H 32 H 04/21/18 23:00 98 F Weight Admit Weight 66.2 kg Weight 66.2 kg Most Recent Monitor Data Heart Rate from ECG 92 NIBP 100/57 NIBP BP-Mean 71 Respiration from ECG 28 SpO2 93 I&O: 04/21/18 04/22/18 04/23/18 06:59 06:59 06:59 Intake Total 798.6 100 200 Output Total 1060 1455 675 Balance -266.4 -9508 -679 Result Diagrams: 04/22/18 05:00 04/22/18 05:00 <Bridger Martinez - Last Filed: 04/22/18 10:57> Phys Exam - Physical Examination agitated; making noises in the room Neck: no JVD, supple Respiratory: no wheezing, no rales, clear to auscultation bilateral 3rd degree heart block, [id number] overnight Gastrointestinal: soft, non-tender, no distention Musculoskeletal: no edema, pulses present Deviation from normal: a&ox2 Skin: no rash, normal turgor <Gardenia Freeman - Last Filed: 04/22/18 07:43> Dx/Plan (1) Bradycardia Code(s): R00.1 - BRADYCARDIA, UNSPECIFIED Status: Acute (2) Encephalopathy Code(s): G93.40 - ENCEPHALOPATHY, UNSPECIFIED Status: Resolved (3) Atrial fibrillation Code(s): I48.91 - UNSPECIFIED ATRIAL FIBRILLATION Status: Chronic (4) GERD (gastroesophageal reflux disease) Code(s): K21.9 - GASTRO-ESOPHAGEAL REFLUX DISEASE WITHOUT ESOPHAGITIS Status: Chronic (5) HTN (hypertension) Code(s): I10 - ESSENTIAL (PRIMARY) HYPERTENSION Status: Chronic (6) Hyperlipidemia Code(s): E78.5 - HYPERLIPIDEMIA, UNSPECIFIED Status: Chronic (7) Psoriasis Code(s): L40.9 - PSORIASIS, UNSPECIFIED Status: Chronic (8) Chronic respiratory failure with hypoxia and hypercapnia Code(s): J96.11 - CHRONIC RESPIRATORY FAILURE WITH HYPOXIA; J96.12 - CHRONIC RESPIRATORY FAILURE WITH HYPERCAPNIA Status: Acute (9) Acute kidney injury Code(s): N17.9 - ACUTE KIDNEY FAILURE, UNSPECIFIED Status: Acute (10) Thrombocytopenia Code(s): D69.6 - THROMBOCYTOPENIA, UNSPECIFIED Status: Acute (11) Recurrent pleural effusion on right Code(s): J90 - PLEURAL EFFUSION, NOT ELSEWHERE CLASSIFIED Status: Chronic (12) Hypokalemia Code(s): E87.6 - HYPOKALEMIA Status: Resolved - Plan Plan: #resp failure with hypoxia and hypercapnia: -2/2 HFpEF -continues to require HF NC at 40L and 89% FiO2 this am satting in upper 80s to low 90s -s/p thoracentesis, pending results #Encephalopathy -pt confused and moaning all night -received 5 doses of 5mg IV Haldol -chely etiology being cardiogenic and hypoxic hypercapnic respiratory failure -Currently alert and oriented X2 # 3rd Degree Heart Block - maintaining rate at 70-90 BPM - not a good candidate for pacemaker placement as patient would require a vent and she does not want to be intubated. #HFpEF- -Net -266 -UOP 44ml/hr adequate -continue Losartan/HCTZ -Lasix 20mg daily -metoprolol held # HTN: -continue losartan/hctz -metoprolol held # A-fib: - currently bradycardic, rate control medications held - would consider restarting eliquis today; will discuss further with cardiology #SHAISTA: - likely consequence of bradycardia - continues to improve # Transaminitis: - improved #Elevated TSH: - low T3 and borderline low T4, start synthroid at 25mcg/day #Hypokalemia -Replaced with 40KCL today Dispo: Pt altered. Not a good candidate for pacemaker placement. Requiring HF NC of 40L @ 89 FiO2. Guarded to poor prognosis. <Gardenia Freeman - Last Filed: 04/22/18 07:43> Attending Addendum - Attending Addendum Date/Time: 04/22/18 1053 I personally evaluated the patient and discussed the management with Dr. Александр Vázquez. I agree with the History, Examination, Assessment and Plan documented above with any addition or exceptions noted below. Ms. Laboy is an 83 yo f with acute hypoxic respiratory failure and 3rd degree heartblock who continues to be altered, requiring 5mg Haldol X 5 overnight. She is not a good candidate for a percutaneous pacemaker at this time d/t the persisent encephalopathy and high oxygen requirement. Plan today is to repeat a CXR to monitor bilateral pleural effusions and discuss goals of care with family. She would likely be a good candidate for palliative/hospice care. <Bridger Martinez - Last Filed: 04/22/18 10:57>
[2018-04-22 06:47] LABS: Anion Gap 11 mmol/L (10-20); Chloride 101 mmol/L (98-107); Potassium 3.4 mmol/L (3.5-5.1); Sodium 145 mmol/L (136-145)
[2018-04-22] MEDS ORDERED: Potassium Chloride 40 MEQ in Sodium Chloride 0.9% 250 ML 250 ML IVPB SCH (07:00)
[2018-04-22] MEDS: Pantoprazole 40 MG VIAL IVP SCH (07:55)
[2018-04-22] MEDS: Apixaban 5 MG TAB PO SCH ×2 (08:52→20:59)
[2018-04-22] MEDS: Sterile Water 10 ML VIAL IVPB SCH (08:55)
[2018-04-22] MEDS: acetaZOLAMIDE Sodium 500 mg Vial IVP SCH (08:56)
[2018-04-22 11:11] VITALS: BMI 26.6
--- NOTE | 2018-04-22 11:39 | PQF ---
GLENN HERMOSILLO RASHIDA BHAT [id number] CLINICAL DOCUMENTATION IMPROVEMENT CLARIFICATION FORM: ICD-10 Updated PLEASE DO AN ADDENDUM TO THE PROGRESS NOTE WITH ANY DOCUMENTATION UPDATES OR ADDITIONS AND CARRY THROUGH TO DC SUMMARY. THANK YOU. DATE: 04/22/18 ATTN: DR DESAI Please exercise your independent, professional judgment in responding to the clarification form. Clinical indicators are provided on the bottom of this form for your review Please check appropriate box(s): HEART FAILURE: A. TYPE: [ X ] Diastolic / HFpEF [ ] Combined Systolic / Diastolic B. ACUITY [ ] Acute on Chronic [ ] Chronic [ ] Other diagnosis [ ] Unable to determine In addition, please specify: Present on Admission (POA): [ x ] Yes [ ] No [ ] Unable to determine For continuity of documentation, please document condition throughout progress notes and discharge summary. Thank You. CLINICAL INDICATORS - SIGNS / SYMPTOMS / LABS 04/22 LLOYD/CRONIN: RESP FAILURE WITH HYPOXIA AND HYPERCAPNIA-2/2 HFPEF S/P THORACENTESIS BNP 844.5 04/17 LAB 04/17 PULMONARY VASCULAR CONGESTION PER CXR RISKS: HTN, HF, CHRONIC PLEURAL EFFUSIONS PER HX H&P TREATMENTS: LOSARTAN/HCTZ, LASIX 20MG DAILY/METOPROLOL HELD 04/22 LLOYD NOTE CCU ADMIT ORDERS IV diuretics--> 04/17 IV LASIX, 04/21 IV LASIX BID 04/17 STRICT I/O 04/17 NRB--HIGH FLOW TO DATE THANK YOU, RAVI (This form is maintained as a part of the permanent medical record) 2015 [employer], [employer]. All Rights Reserved Ravi Miller RN, BSN, CCDS [email or web address] [phone] MTDDez
--- NOTE | 2018-04-22 13:54 | RAD ---
UPRIGHT PORTABLE CHEST ONE VIEW: History: 83-year-old female with history of hypoxia, right pleural effusion. Comparison: 04-20-18 FINDINGS: Again noted are extensive bilateral perihilar alveolar opacification changes with bilateral pleural e ffusions, larger on the right side, as well as interstitial changes and vascular congestion noted laquita aterally. Heart size is upper range of normal. IMPRESSION: Persistent extensive bilateral perihilar alveolar opacity changes as well as bilateral vascular conge stion and interstitial edema and pleural effusions, larger on the right side, with borderline sized h eart. Little change from prior study. Continued short term follow up. POS: ALINE
--- NOTE | 2018-04-22 14:36 | PRG ---
DATE OF SERVICE: 04/22/2018 SUBJECTIVE: Ms. Laboy is just constantly moaning and saying water. She denies being in any respira tory distress. She is in and out of atrial fibrillation. OBJECTIVE: VITAL SIGNS: Her heart rates in the 90s, respiratory rates in the 20s, oximetry is 94. LUNGS: Remarkable for decreased breath sounds at her right base. HEART: Regular rhythm. ABDOMEN: Soft. LABORATORY DATA: White count 6.6, hemoglobin 8.4, platelets 57,000. Electrolytes were unremarkable. IMPRESSION: 1. Severe diastolic heart failure. 2. Ongoing intermittent atrial fibrillation. 3. Extreme deconditioning. 4. Encephalopathy, likely some degree of ICU psychosis or decompensated low grade dementia. Her prognosis is dismal for any type of functional recovery. She has not progressed for several week s in spite aggressive medical management. I think inpatient hospice care is appropriate. I have dis cussed the above with the family practice residents and I also feel the same.
[2018-04-22] MEDS: Simvastatin 20 MG TAB PO SCH (20:59)
[2018-04-22] MEDS ORDERED: Folic Acid 1 MG TAB PO SCH (21:00)
[2018-04-23] MEDS: Haloperidol Lactate 5 MG/ML VIAL IM PRN ×4 (01:24→16:37)
[2018-04-23 03:54] LABS: #Eosinphils 0.1 thou/uL (0.0-0.7); #Lymphocytes 0.5 thou/uL (1.20-3.40); #Monocytes 0.5 thou/uL (0.11-0.59); #Neutrophils 5.4 thou/uL (1.40-6.50); %Basophils 0.4 % (0.0-1.0); %Lymphocytes 7.5 % (21.0-51.0); %Monocytes 7.3 % (0.0-10.0); %Neutrophils 82.8 % (42.0-75.0); Hemoglobin 8.4 g/dL (12.0-16.0); Mean Corpuscular HGB CONC 31.8 g/dL (32.0-36.0); Mean Corpuscular Hemoglobin 33.9 pg (27.0-31.0); Mean Platelet Volume 9.5 fL (7.4-10.4); Platelet Count 53 thou/uL (130-400); RBC Distribution Width 14.5 % (11.5-14.5); Red Blood Cell (RBC) Count 2.47 mill/uL (4.20-5.40); White Blood Cell (WBC) Count 6.5 thou/uL (4.8-10.8)
[2018-04-23 04:12] LABS: ALT (SGPT) 63 U/L (8-55); AST (SGOT) 20 U/L (5-34); Alkaline Phosphatase 58 U/L (40-150); BUN (Urea Nitrogen) 40 mg/dL (9.8-20.1); Bilirubin, Total 0.5 mg/dL (0.2-1.2); Calc. Creatinine Clearance 50 mL/min (70-130); Calcium 8.8 mg/dL (7.8-10.44); Estimated GFR-MDRD 60; Globulin 2.4 g/dL (2.4-3.5); Glucose 89 mg/dL (83-110); Protein, Total 5.4 g/dL (6.0-8.3)
[2018-04-23 04:23] LABS: Anion Gap 16 mmol/L (10-20); Carbon Dioxide 34 mmol/L (23-31); Chloride 101 mmol/L (98-107); Potassium 3.5 mmol/L (3.5-5.1); Sodium 147 mmol/L (136-145)
[2018-04-23] MEDS: Levothyroxine Sodium 25 MCG TAB PO SCH (05:15)
[2018-04-23] MEDS: Furosemide 40 MG/4 ML VIAL SLOW IVP SCH ×2 (05:15→13:40)
--- NOTE | 2018-04-23 07:06 | PDOC.EVN ---
Event Note - Event Note Event Note: Called Sindi Laboy yesterday and provided an update regarding medical condition. Sindi would like to proceed with hospice for Berenice Laboy and stated that she just spoke with a [facility] commercial pest control representative who would be coming in the morning. Sindi plans to drive into the hospital in the morning.
--- NOTE | 2018-04-23 07:06 | PDOC.FM ---
- Subjective Subjective: 83 yo f admitted for 3rd degree heart block, acute hypoxic respiratory failure, and encephalopathy. [facility]IT[facility] decided on hospice yesterday afternoon. She plans to meet with them today at the hospital ([facility]). o/n: transferred to the 4th floor. Requiring 25L HF NC @ 70% Fio2; She also required 4 doses of Haldol 5mg - Objective MAR Reviewed: Yes Vital Signs & Weight: Vital Signs (12 hours) Temp Pulse Resp BP Pulse Ox 04/23/18 06:52 93 L 04/23/18 06:50 88 22 H 93 L 04/23/18 05:17 98.0 F 98 18 122/53 L 95 04/23/18 00:25 95 04/23/18 00:24 91 28 H 95 04/22/18 23:51 98.1 F 95 16 104/51 L 92 L 04/22/18 21:54 93 L 04/22/18 19:55 94 L Weight Admit Weight 64.2 kg Weight 66.2 kg Most Recent Monitor Data Heart Rate from ECG 92 NIBP 97/35 NIBP BP-Mean 55 Respiration from ECG 18 SpO2 100 I&O: 04/22/18 04/23/18 04/24/18 06:59 06:59 06:59 Intake Total 100 830 Output Total 1455 [facility] Balance -2353 -4273 Result Diagrams: 04/23/18 03:39 04/23/18 03:39 Phys Exam - Physical Examination Constitutional: NAD HEENT: PERRLA, moist MMs Respiratory: no wheezing, no rales, clear to auscultation bilateral Cardiovascular: RRR, no significant murmur Gastrointestinal: soft, non-tender Musculoskeletal: no edema Neurological: non-focal Deviation from normal: a&ox2 Skin: no rash Dx/Plan (1) Acute respiratory failure with hypoxia Code(s): J96.01 - ACUTE RESPIRATORY FAILURE WITH HYPOXIA Status: Acute (2) Third degree heart block Code(s): I44.2 - ATRIOVENTRICULAR BLOCK, COMPLETE Status: Acute (3) Encephalopathy Code(s): G93.40 - ENCEPHALOPATHY, UNSPECIFIED Status: Resolved (4) Heart failure with preserved ejection fraction Code(s): I50.30 - UNSPECIFIED DIASTOLIC (CONGESTIVE) HEART FAILURE Status: Acute (5) Bradycardia Code(s): R00.1 - BRADYCARDIA, UNSPECIFIED Status: Resolved (6) Atrial fibrillation Code(s): I48.91 - UNSPECIFIED ATRIAL FIBRILLATION Status: Chronic (7) GERD (gastroesophageal reflux disease) Code(s): K21.9 - GASTRO-ESOPHAGEAL REFLUX DISEASE WITHOUT ESOPHAGITIS Status: Chronic (8) HTN (hypertension) Code(s): I10 - ESSENTIAL (PRIMARY) HYPERTENSION Status: Chronic (9) Hyperlipidemia Code(s): E78.5 - HYPERLIPIDEMIA, UNSPECIFIED Status: Chronic (10) Psoriasis Code(s): L40.9 - PSORIASIS, UNSPECIFIED Status: Chronic (11) Acute kidney injury Code(s): N17.9 - ACUTE KIDNEY FAILURE, UNSPECIFIED Status: Acute (12) Thrombocytopenia Code(s): D69.6 - THROMBOCYTOPENIA, UNSPECIFIED Status: Acute (13) Recurrent pleural effusion on right Code(s): J90 - PLEURAL EFFUSION, NOT ELSEWHERE CLASSIFIED Status: Chronic (14) Hypokalemia Code(s): E87.6 - HYPOKALEMIA Status: Resolved - Plan Plan: Plan: #resp failure with hypoxia and hypercapnia: -2/2 HFpEF -Requiring HF NC at 25L and 70% FiO2 this am satting in upper 80s to low 90s -transitioning to hospice today #Encephalopathy -received 4 doses of 5mg IV Haldol -likley etiology being cardiogenic and hypoxic hypercapnic respiratory failure -Currently alert and oriented X2 # 3rd Degree Heart Block - maintaining rate at 70-90 BPM - not a good candidate for pacemaker placement as patient would require a vent and she does not want to be intubated. #HFpEF- -Net: -1L -UOP 2L -continue Losartan/HCTZ -Lasix 20mg daily -metoprolol held # HTN: -continue losartan/hctz -metoprolol held # A-fib: - currently bradycardic, rate control medications held - would consider restarting eliquis today; will discuss further with cardiology #SHAISTA: - likely consequence of bradycardia - continues to improve # Transaminitis: - improved #Elevated TSH: - low T3 and borderline low T4, start synthroid at 25mcg/day #Hypokalemia -Resolved Dispo: Transitioning to hospice today
[2018-04-23] MEDS: Pantoprazole 40 MG VIAL IVP SCH (07:28)
[2018-04-23] MEDS: Apixaban 5 MG TAB PO SCH (09:33)
[2018-04-23] MEDS: Sterile Water 10 ML VIAL IVPB SCH (09:35)
[2018-04-23] MEDS: acetaZOLAMIDE Sodium 500 mg Vial IVP SCH (09:36)
[2018-04-23 17:06] VITALS: BP 111/78; TEMP 98.3
--- NOTE | 2018-04-24 06:09 | EKG ---
Test Reason : Blood Pressure : / mmHG Vent. Rate : 076 BPM Atrial Rate : 076 BPM P-R Int : 182 ms QRS Dur : 122 ms QT Int : 416 ms P-R-T Axes : 078 -58 035 degrees QTc Int : 468 ms Normal sinus rhythm Left axis deviation Right bundle branch block Abnormal ECG When compared with ECG of 26-MAR-2018 08:28, No significant change was found Confirmed by YASMIN GAGNON ([id number]) on 04/24/2018 6:08:41 AM Referred By: ROSEMARY Confirmed By:YASMIN GAGNON
== END 2018-04-23 18:18 | disposition hospice, inpatient (51) | DRG 308 ==
LOC: ERS 20:37 → CCU 04-18 02:37 → T4-B 04-22 20:01
PROVIDERS: ADMIT Student in an Organized Health Care Education/Training Program; ATTEND Student in an Organized Health Care Education/Training Program
PROC: 06HY33Z Insertion of Infusion Device into Lower Vein, Percutaneous Approach (ICD-10-PCS; 2018-04-18)
PROC: 0W993ZZ Drainage of Right Pleural Cavity, Percutaneous Approach (ICD-10-PCS; principal; 2018-04-19)
DX: I44.2 Atrioventricular block, complete (principal); J96.01 Acute respiratory failure with hypoxia; R57.0 Cardiogenic shock; I50.31 Acute diastolic (congestive) heart failure; G93.40 Encephalopathy, unspecified; N17.9 Acute kidney failure, unspecified; J90 Pleural effusion, not elsewhere classified; I48.91 Unspecified atrial fibrillation; K21.9 Gastro-esophageal reflux disease without esophagitis; I11.0 Hypertensive heart disease with heart failure; E78.5 Hyperlipidemia, unspecified; L40.9 Psoriasis, unspecified; D69.6 Thrombocytopenia, unspecified; E87.6 Hypokalemia; R74.0 Nonspecific elevation of levels of transaminase and lactic acid dehydrogenase [LDH]; Z66 Do not resuscitate; F32.9 Major depressive disorder, single episode, unspecified; D64.9 Anemia, unspecified
CPT/HCPCS: 36415; 36416; 36556; 70450; 71045; 71250; 80053; 81003; 81015; 82150; 82945; 83615; 83690; 83735; 83880; 83986; 84157; 84439; 84443; 84478; 84481; 84484; 85025; 85060; 85610; 85730; 87070; 87116; 87205; 87206; 88112; 88305; 89051; 90471; 90662; 93005; 93010; 94640; 96360; 96361; 96365; 96366; 96375; A4216; C9113; G0008; G8996-GN-CK; G8997-GN-CK; J0171; J0696; J1120; J1610; J1630; J1940; J2001; J2270; J2405; J3480; J7050; J7070; J7620